=== PATIENT | female | born 1970 | race Caucasian/White ===

== ENCOUNTER → 2016-10-07 | Outpatient (CLI) | payer OTHER ==
--- NOTE | 2016-10-07 16:23 | PN ---
DATE OF SERVICE: 10/07/2016 This patient is a 46-year-old lady who has been followed in the sleep center. She is here to discuss results of her diagnostic sleep study and multiple sleep latency test. Patient had episodes of ( ) while sitting in front of the computer several times during the day. We discussed results of sleep studies with the patient and her in detail. Diagnostic sleep study showed total apnea-hypopnea index 1.1 with lowest oxygen level 91.6%. No significant periodic limb movements have been documented. Sleep efficiency, although, was decreased to 66.1%, and the patient slept in total for 4 hours 37 minutes that night. Multiple sleep latency test on the following day showed mean sleep latency of 13.2 minutes without any sleep onset REM periods. MEDICATIONS: 1. Neurontin. 2. Dilantin. 3. Ativan. 4. Zofran. 5. Topamax. 6. Zantac. 7. Albuterol. 8. Vimpat. During physical exam, patient in no distress. VITAL SIGNS: BP 138/86, HR 84, RR 16, temperature 98.2. Oxygen saturation at room air 99%. Weight 188 pounds. Height 5 feet 7 inches. BMI 29.4. HEENT: PERRLA, EOMI. LUNGS: Clear. HEART: S1, S2 regular. ABDOMEN: Slightly obese, soft, nontender. EXTREMITIES: No edema. IMPRESSION: 1. No significant respiratory abnormalities have been documented during the sleep study. Normal apnea-hypopnea index, but a total of 5 obstructive apneas was documented. 2. No significant periodic limb movements. 3. Normal sleep latency during MSLT. No sleep onset REM periods, which is against narcolepsy and hypersomnia. 4. History of seizure disorder. 5. Migraines. 6. Degenerative disc disease of the back. 7. Hypertension. 8. Asthma. 9. Mitral valve prolapse. 10. Status post appendectomy. 11. Status post cholecystectomy. 12. Status post hysterectomy. 13. Status post kidney stone removal. 14. Status post foot surgery. PLAN: 1. Sleep hygiene with regular time in bed for at least 8 hours. 2. Preferable position during sleep on the side; not flat in bed. 3. Losing weight. 4. Patient does not drive. 5. 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 Thank you very much for allowing me to participate in the management of your patient.
== END | disposition home or self-care (01) ==
LOC: SLEEP 10:29
PROVIDERS: ATTEND Internal Medicine
DX: G47.33 Obstructive sleep apnea (adult) (pediatric) (principal); G40.909 Epilepsy, unspecified, not intractable, without status epilepticus; G43.909 Migraine, unspecified, not intractable, without status migrainosus; M51.34 Other intervertebral disc degeneration, thoracic region; I10 Essential (primary) hypertension; J45.909 Unspecified asthma, uncomplicated; I34.1 Nonrheumatic mitral (valve) prolapse; E66.9 Obesity, unspecified; Z68.29 Body mass index [BMI] 29.0-29.9, adult; Z79.899 Other long term (current) drug therapy

== ENCOUNTER 2016-12-13 11:38 | Inpatient (IN) | payer OTHER ==
[2016-12-08 17:16] VITALS: BMI 29.6
--- NOTE | 2016-12-13 07:31 | P.GSHP ---
History of Present Illness H&P Date: 12/13/16 CHIEF COMPLAINT: History of intra-abdominal adhesions. HISTORY OF PRESENT ILLNESS: The patient is a 46-year-old female who presents with history of lower bilateral quadrant abdominal pain. She underwent diagnostic studies including previous diagnostic laparoscopy demonstrating severe pelvic adhesions. Abdominal pain is now worse and where she has intermittent small bowel obstruction. Surgical intervention with open exploratory laparotomy with lysis of adhesions and possible bowel resection was described to her symptoms progressed. Now she presents for definitive surgical intervention. PAST MEDICAL HISTORY: Please see list PAST SURGICAL HISTORY: Please see list MEDICATIONS: Please see list ALLERGIES: Denies. SOCIAL HISTORY: No illicit drug use or recent tobacco use FAMILY HISTORY: No gallbladder disease REVIEW OF ORGAN SYSTEMS: CONSTITUTIONAL: No reports of fevers or chills. PHYSICAL EXAM: VITAL SIGNS: Afebrile vital signs stable GENERAL: Well-developed pleasant in no acute distress. HEENT: No scleral icterus. Extraocular movements grossly intact. Moist buccal mucosa. NECK: Supple without lymphadenopathy. CHEST: Unlabored respirations. Equal bilateral excursions. CARDIOVASCULAR: Regular rate regular rhythm rhythm. Distal 2+ pulses. ABDOMEN: Soft, nondistended. Tender along the bilateral lower abdomen. MUSCULOSKELETAL: No clubbing, cyanosis, or edema. NEURO: Moves all extremities 4+/5. PSYCH: Alert and oriented to person, place and time. ASSESSMENT: 1. Bilateral lower abdominal pain. 2. History of intra-abdominal adhesions. PLAN: 1. Open exploratory laparotomy with lysis of adhesions and possible bowel resection were described in detail. 2. Heparin for DVT prophylaxis 5000 units. 3. Antibiotic prophylaxis. 4. Inpatient hospitalization advised and anticipated for at least 2 nights. Past Medical History Past Medical History: Asthma, GERD/Reflux, Hypertension, Mitral Valve Prolapse ( MVP), Osteoarthritis (OA), Seizure Disorder, Syncope Additional Past Medical History / Comment(s): migraines and chronic nausea, DDD , 3 herniated disc, no longer needs BP med, last seizure 2015. STATES HAS AURA[facility] S DAILY, HAS MEDIPORT. VERY HARD IV START History of Any Multi-Drug Resistant Organisms: None Reported Past Surgical History: Appendectomy, Cholecystectomy, Hysterectomy, Orthopedic Surgery, Tubal Ligation Additional Past Surgical History / Comment(s): surg. for small bowel obstruction , right internal jugular mediport placement - November 2014, HAS HAD 3 MEDIPORTS repair fx. left foot, surg. for kidney stones LAPROSCOPYN FOR 01/2016 lysis of adhesions Past Anesthesia/Blood Transfusion Reactions: Previous Problems w/ Anesthesia, Motion Sickness, Postoperative Nausea & Vomiting (PONV) Additional Past Anesthesia/Blood Transfusion Reaction / Comment(s): pt states she has post anesthesia seizures sometimes, severe PONV Past Psychological History: Anxiety Smoking Status: Never smoker Past Alcohol Use History: None Reported Past Drug Use History: None Reported - Past Family History Mother Family Medical History: Cancer Additional Family Medical History / Comment(s): leukemia Father Family Medical History: Cancer Medications and Allergies Home Medications Medication Instructions Recorded Confirmed Type Albuterol Inhaler [Ventolin Hfa 1 - 2 puff INHALATION QID PRN 11/08/14 12/08/16 History Inhaler] LORazepam [Ativan] 1 mg PO BID 11/08/14 12/08/16 History Ondansetron [Zofran] 4 mg PO Q12HR PRN 11/08/14 12/08/16 History Ranitidine HCl [Zantac] 150 mg PO BID 11/08/14 12/08/16 History Gabapentin [Neurontin] 800 mg PO QID 04/17/15 12/08/16 History Polyethylene Glycol 3350 [Miralax] 17 gm PO DAILY PRN 04/17/15 12/08/16 History Topiramate [Topamax] 300 mg PO Q8HR 04/17/15 12/08/16 History Docusate [Colace] 100 mg PO DAILY 01/08/16 12/08/16 History Lacosamide [Vimpat] 150 mg PO BID 01/08/16 12/08/16 History Lactulose [Constulose] 10 gm PO DAILY PRN 01/08/16 12/08/16 History Cholecalciferol [Vitamin D3] 1,000 unit PO DAILY 10/08/16 12/08/16 History Phenytoin Sodium Extended 300 mg PO BID 12/08/16 12/08/16 History [Dilantin] Allergies Allergy/AdvReac Type Severity Reaction Status Date / Time hydromorphone HCl Allergy Severe Chest Pain Verified 11/05/16 10:55 [From Dilaudid] morphine Allergy Severe Rapid Verified 11/05/16 10:55 Heart Rate Penicillins Allergy Severe Rapid Verified 11/05/16 10:55 Heart Rate prochlorperazine edisylate Allergy Severe Rapid Verified 11/05/16 10:55 [From Compazine] Heart Rate prochlorperazine maleate Allergy Severe Rapid Verified 11/05/16 10:55 [From Compazine] Heart Rate
[~2016-12-13 11:38] MED LIST: ACETAMINOPHEN IV (For NPO) 1,000 MG in EMPTY BAG 1 BAG IVPB ONE; DEXAMETHASONE SOD PHOSPHATE 10 MG/ML 1 ML VIAL IV ONE; HEPARIN SODIUM,PORCINE 5,000 UNIT/ML 1 ML VIAL SQ ONE; MIDAZOLAM 2 MG/2 ML VIAL IV PRN; SCOPOLAMINE 1.5MG/72HR PATCH TRANSDERM ONE; ceFAZolin 2 GM in SODIUM CHLORIDE 0.9% 100 ML IVPB ONE; fentaNYL (PF) 50 MCG/ML 2 ML AMP IV PRN
[2016-12-13] MEDS: LACTATED RINGERS 1,000 ML IV SCH (13:51)
[2016-12-13] MEDS ORDERED: LIDOCAINE 1% 20 ML VIAL (10MG/ML) FOR IV START INTRADERMA ONE (13:52)
[2016-12-13] MEDS: ONDANSETRON 4 MG/2 ML VIAL IVP ONE ×2 (13:53→18:00)
[2016-12-13] MEDS ORDERED: ROCURONIUM BROMIDE 10 MG/ML 10 ML VIAL IV ONE (14:58)
[2016-12-13] MEDS ORDERED: fentaNYL (PF) 50 MCG/ML 2 ML AMP ONE (14:58)
[2016-12-13] MEDS ORDERED: NEOSTIGMINE 1 MG/ML 10 ML VIAL ONE (14:58)
[2016-12-13] MEDS ORDERED: SUCCINYLCHOLINE CHLORIDE 100 MG/5 ML SYR IV ONE (14:58)
[2016-12-13] MEDS ORDERED: PROPOFOL 10 MG/ML 20 ML VIAL IV ONE (14:58)
[2016-12-13] MEDS ORDERED: VECURONIUM 10 MG VIAL IV ONE (14:58)
[2016-12-13] MEDS ORDERED: MIDAZOLAM 2 MG/2 ML VIAL ONE (14:58)
[2016-12-13] MEDS ORDERED: GLYCOPYRROLATE 0.2 MG/ML 2 ML VIAL ONE (14:58)
[2016-12-13] MEDS ORDERED: ALBUMIN HUMAN 5% 500 ML VIAL IVPB ONE (14:58)
[2016-12-13] MEDS ORDERED: BUPIVACAIN-EPI 0.25%-1:200,000 30 ML VIAL SQ ONE ×2 (15:28→15:38)
[2016-12-13] MEDS ORDERED: ALBUMIN HUMAN 5% 500 ML in EMPTY BAG 1 BAG IVPB ONE (15:35)
[2016-12-13] MEDS ORDERED: LACTATED RINGERS 1,000 ML IV ONE (16:44)
--- NOTE | 2016-12-13 17:08 | P.PCN ---
Date of Procedure: 12/13/16 Preoperative Diagnosis: History of bowel obstructions, history of intra-abdominal adhesions, generalized abdominal pain, intractable nausea and vomiting, history of chronic constipation Postoperative Diagnosis: Same, internal hernia involving proximal jejunum Procedure(s) Performed: Exploratory laparotomy with lysis of adhesions over 1 hour was severe adhesive band disease in the pelvis of ileum to sigmoid colon and pelvis, takedown of internal hernia involving proximal jejunum, placement of XIX drain pelvis, abdominal washout 2 L Anesthesia: GETA, local (60 mL cords Marcaine with epinephrine) Surgeon: Alberta Durán Estimated Blood Loss (ml): 50 Pathology: none sent Condition: stable Disposition: floor Operative Findings: Adhesions involving the pelvis of terminal ileum and proximal ileum to the deep pelvis and sigmoid colon, internal hernia involving proximal jejunum
[2016-12-13] MEDS ORDERED: NALOXONE 0.4 MG/ML 1 ML VIAL IV PRN (17:09)
[2016-12-13] MEDS: METOCLOPRAMIDE 5 MG/ML 2 ML VIAL IVP SCH (18:08)
[2016-12-13] MEDS: KETOROLAC 30 MG/ML 1 ML VIAL IVP SCH (18:08)
[2016-12-13] MEDS: DEXAMETHASONE SOD PHOSPHATE 10 MG/ML 1 ML VIAL IV STA ×2 (18:13→19:22)
[2016-12-13] MEDS ORDERED: ONDANSETRON 4 MG/2 ML VIAL IVP PRN (18:13)
[2016-12-13] MEDS ORDERED: SODIUM CHLORIDE 0.9% 2,000 ML IV ONE (18:19)
--- NOTE | 2016-12-13 18:19 | P.PN ---
Progress Note - Text Patient seen and evaluated. She complains of moderate nausea. Intraoperative findings including severe adhesions along the pelvis as well as internal hernia was discussed with the patient's . Nasogastric tube placed for precaution of nausea. Recommend IV fluid bolus. Inpatient hospitalization anticipated for at least 2-3 days pending bowel function.
[2016-12-13] MEDS ORDERED: ACETAMINOPHEN IV (For NPO) 1,000 MG in EMPTY BAG 1 BAG IVPB ONE (19:00)
[2016-12-13] MEDS: GABAPENTIN 400 MG CAP PO SCH ×2 (19:22→21:12)
[2016-12-13] MEDS: ceFAZolin 2 GM in SODIUM CHLORIDE 0.9% 100 ML IVPB SCH (21:11)
[2016-12-13] MEDS: PHENYTOIN SODIUM EXTENDED 100 MG CAP PO SCH (21:12)
[2016-12-13] MEDS: LACOSAMIDE 50 MG TABLET PO SCH (21:51)
[2016-12-14] MEDS: KETOROLAC 30 MG/ML 1 ML VIAL IVP SCH ×4 (00:03→16:58)
[2016-12-14] MEDS: METOCLOPRAMIDE 5 MG/ML 2 ML VIAL IVP SCH ×4 (00:03→16:58)
[2016-12-14] MEDS: TOPIRAMATE 100 MG TAB PO SCH ×3 (00:04→15:04)
[2016-12-14] MEDS: ceFAZolin 2 GM in SODIUM CHLORIDE 0.9% 100 ML IVPB SCH (05:31)
[2016-12-14 08:08] LABS: Basophils % (A) 0 %; CH 31.3; CHCM 33.3; Eosinophils % (A) 0 %; HCT 43.5 % (34.0-46.0); HDW 2.51; Luc # (Auto) 0.12; Luc % (Auto) 1; Lymphocytes # (A) 1.3 k/uL (1.0-4.8); Lymphocytes % (A) 15 %; MCH 30.4 pg (25.0-35.0); MCHC 32.2 g/dL (31.0-37.0); MCV 94.4 fL (80.0-100.0); Monocytes # (A) 0.6 k/uL (0-1.0); Monocytes % (A) 8 %; Neutrophils # (A) 6.3 k/uL (1.3-7.7); Neutrophils % (A) 75 %; RBC 4.61 m/uL (3.80-5.40); RDW 13.4 % (11.5-15.5); WBC 8.4 k/uL (3.8-10.6); WBC (Perox) 8.56
[2016-12-14] MEDS: PANTOPRAZOLE 40 MG/10 ML VIAL IV SCH (08:20)
[2016-12-14] MEDS: GABAPENTIN 400 MG CAP PO SCH ×4 (08:20→22:20)
[2016-12-14] MEDS: ENOXAPARIN 40 MG/0.4 ML SYRINGE SQ SCH (08:20)
[2016-12-14 08:21] LABS: ALT 278 U/L (9-52); AST 341 U/L (14-36); Alkaline Phosphatase 65 U/L (38-126); Anion Gap 12 mmol/L; Blood Urea Nitrogen 11 mg/dL (7-17); Calcium 9.4 mg/dL (8.4-10.2); Carbon Dioxide 17 mmol/L (22-30); Chloride 112 mmol/L (98-107); Glucose 97 mg/dL (74-99); Non-African American GFR(MDRD) >60 (>60 ml/min/1.73 sqM); Phosphorous 2.8 mg/dL (2.5-4.5); Potassium 3.7 mmol/L (3.5-5.1); Sodium 141 mmol/L (137-145); Total Bilirubin 0.6 mg/dL (0.2-1.3); Total Protein 7.2 g/dL (6.3-8.2)
[2016-12-14] MEDS: PHENYTOIN SODIUM EXTENDED 100 MG CAP PO SCH ×2 (08:21→22:20)
[2016-12-14] MEDS: LACOSAMIDE 50 MG TABLET PO SCH ×2 (08:27→22:20)
[2016-12-14] MEDS: LACTATED RINGERS 1,000 ML IV SCH (14:10)
--- NOTE | 2016-12-14 15:06 | P.PN ---
Subjective 46 year old female being seen this morning on rounds. Nasogastric tube in place. Patient states has not had a bowel movement has not passed any flatus. Patient states pain medication has been effective for pain control. Patient has not been out of bed yet this morning Patient is postop exploratory laparotomy with lysis of adhesions of 1 hour with severe adhesive band disease the pelvis of ileum to sigmoid colon and pelvis, takedown of internal hernia involving proximal jejunum, placement of drain pelvis, abdominal washout two Liter Objective - Vital Signs Vital signs: Vital Signs Temp 97 F L 12/14/16 07:00 Pulse 92 12/14/16 08:00 Resp 18 12/14/16 08:00 BP 124/65 12/14/16 07:00 Pulse Ox 98 12/14/16 07:00 Intake & Output 12/13/16 12/14/16 12/14/16 18:59 06:59 18:59 Intake Total 2200 500 Output Total 280 60 Balance 1920 -60 500 Weight 88.451 kg Intake: IV 2200 500 Lactated Ringers 1,000 ml 500 @ 20 mls/hr IV .Q24H [facility] Rx#:[id number] Output: Drainage 60 Abdomen 60 Urine 200 Estimated Blood Loss 80 Other: Voiding Method Toilet Toilet # Voids 6 1 - Exam Physical exam 46-year-old female sitting up in bed oriented 3 appears in no acute distress Lungs essentially clear adequate air movement Heart S1-S2 audible regular Abdomen soft surgical dressing dry nasal gastric tube in place Eber-Arita drain in place few hypoactive bowel tones surgical tenderness nondistended Extremities no edema noted - Labs CBC & Chem 7: 12/14/16 07:18 12/14/16 07:18 Labs: Abnormal Lab Results - Last 24 Hours (Table) 12/14/16 Range/Units 07:18 Chloride 112 H (98-107) mmol/L Carbon Dioxide 17 L (22-30) mmol/L AST 341 H (14-36) U/L ALT 278 H (9-52) U/L Assessment and Plan Plan: Impression Present on admission bilateral lower abdominal pain likely due to lysis of adhesions intra-abdominal Status post 13 of December exploratory laparotomy with severe lysis of adhesions adhesions Anxiety disorder nonspecified History of a seizure disorder on Dilantin and Topamax Plan Continue postop surgical care Use of incentive spirometer use of a 1 hour while awake Pain control DVT and GI prophylaxis IV fluid for hydration Nasogastric tube to suction Resume home meds as appropriate The above dictated assessment and findings were discussed with Ms. Luis Armando Cox and the plan of care have been dictated as directed. Zenobia Zapata nurse practitioner acting as a scribe for Dr. Durán
--- NOTE | 2016-12-14 20:21 | P.PN ---
Progress Note - Text NGT removed. She is passing flatus. Start soft diet. Discharge home for the morning.
[2016-12-14 23:30] VITALS: RESP 16
[2016-12-15] MEDS: TOPIRAMATE 100 MG TAB PO SCH ×3 (00:27→14:26)
[2016-12-15] MEDS: KETOROLAC 30 MG/ML 1 ML VIAL IVP SCH ×3 (00:27→13:09)
[2016-12-15] MEDS: METOCLOPRAMIDE 5 MG/ML 2 ML VIAL IVP SCH ×3 (00:27→13:09)
[2016-12-15] MEDS: ENOXAPARIN 40 MG/0.4 ML SYRINGE SQ SCH (07:46)
[2016-12-15] MEDS: PANTOPRAZOLE 40 MG/10 ML VIAL IV SCH (07:47)
[2016-12-15] MEDS: PHENYTOIN SODIUM EXTENDED 100 MG CAP PO SCH (07:47)
[2016-12-15] MEDS: GABAPENTIN 400 MG CAP PO SCH ×2 (07:47→14:25)
[2016-12-15] MEDS: LACOSAMIDE 50 MG TABLET PO SCH (07:52)
[2016-12-15] MEDS: LACTATED RINGERS 1,000 ML IV SCH (08:39)
[2016-12-15 08:52] LABS: ALT 135 U/L (9-52); AST 92 U/L (14-36); Alkaline Phosphatase 66 U/L (38-126); Anion Gap 10 mmol/L; Blood Urea Nitrogen 11 mg/dL (7-17); Calcium 9.2 mg/dL (8.4-10.2); Carbon Dioxide 21 mmol/L (22-30); Chloride 110 mmol/L (98-107); Glucose 106 mg/dL (74-99); Non-African American GFR(MDRD) >60 (>60 ml/min/1.73 sqM); Potassium 3.5 mmol/L (3.5-5.1); Sodium 141 mmol/L (137-145); Total Bilirubin 0.7 mg/dL (0.2-1.3); Total Protein 6.7 g/dL (6.3-8.2)
--- NOTE | 2016-12-15 09:34 | P.OP ---
Date of Procedure: 12/13/16 Description of Procedure: SURGEON: SHERIN ANGEL MD LASER BEAM TRIM OPERATOR: NONE. PREOPERATIVE DIAGNOSIS: 1. History of chronic abdominal pain. 2. Previous history of multiple small bowel obstructions with intestinal adhesions. 3. Seizure disorder. 4. Asthma. 5. Gastroesophageal reflux disease. 6. Mitral valve prolapse. 7. Osteoarthritis. 8. Migraines, chronic. 9. Chronic nausea and vomiting. 10. Poor peripheral venous access. 11. Chronic constipation. POSTOPERATIVE DIAGNOSIS: 1. History of chronic abdominal pain. 2. Previous history of multiple small bowel obstructions with intestinal adhesions. 3. Seizure disorder. 4. Asthma. 5. Gastroesophageal reflux disease. 6. Mitral valve prolapse. 7. Osteoarthritis. 8. Migraines, chronic. 9. Chronic nausea and vomiting. 10. Poor peripheral venous access. 11. Internal hernia involving proximal jejunum. PROCEDURES PERFORMED: 1. Exploratory laparotomy with lysis of adhesions over 1 hour was severe adhesive band disease in the pelvis of ileum to sigmoid colon and pelvis 2. Takedown of internal hernia involving proximal jejunum 3. Placement of round #19 STEVEN drain along pelvis 4. Abdominal washout 2 L ANESTHESIA: GETA, local (60 mL 0.25% Marcaine with epinephrine) ESTIMATED BLOOD LOSS: 50 mL. SPECIMENS REMOVED: None. COMPLICATIONS: None. INDICATIONS: The patient is a 46-year-old female who presented with chronic diffuse and progressive abdominal pain. She has history of multiple intra- abdominal adhesions as well as bowel obstruction. Surgical intervention was discussed including but not limited to bleeding, infection, need for further surgery, small bowel resection, cosmetic deformity, and pain for which informed consent was obtained. DESCRIPTION: The patient was brought to the operating room. After general induction, the abdomen was prepped and draped in a standard sterile fashion using ChloraPrep . A time-out protocol was confirmed with surgical team regarding the patient's name including procedure to be performed. Preoperative antibiotics were administered. Bilateral SCDs were placed. A Smith catheter was placed. A midline abdominal incision was placed from the epigastrium down to the pubis. The abdomen was entered using electro-Bovie cautery. Careful entry into the abdomen was performed using blunt dissection including sharp dissection using the Metzenbaum scissors. No full-thickness enterotomies had occurred during this entire portion of entry into the abdomen. Along the lower abdomen, the small bowel was adherent including along the right lower abdomen. Sharp lysis with a Metzenbaum scissors was performed. An internal hernia of the distal small bowel was confirmed. At least 4 separate areas involving near obstructing adhesive band disease was identified of the lower pelvis from her previous hysterectomy. Retrograde inspection of the small bowel was performed to the ligament of Treitz. All adhesive bands were addressed using a Metzenbaum scissor including electro-Bovie cautery. Extensive lysis of adhesions were performed over 1 hour. Proximal small bowel dilatation was relieved as the focal transition point found along the mid to distal ileum was divided. The terminal ileum and mesentery were unremarkable. The cecum was unremarkable. No inflammatory changes were identified. No enterotomies occurred. After adhesiolysis, the bowel was ran at least another 2 more times proximally and distally to confirm all lysis of adhesions. Finally, a nasogastric tube was confirmed within the stomach and functioning well. The abdominal cavity was copiously irrigated with approximately a liter of warm normal saline solution. A round of 19 Eber-Arita drain was placed along the abdominal cavity given moderate irrigation fluid. A 2-0 nylon was placed for the STEVEN drain. Bulb suction was applied. Optifoam antibiotic dressing was placed over the STEVEN site. The abdomen was closed using double-stranded 0 PDS. Around the umbilicus was reapproximated using 3-0 Vicryl. The rest of the incisions were reapproximated using 3-0 Vicryl. Antibiotic Optifoam dressing was placed. An abdominal binder was placed. The sponge instrument count and needle counts were verified correct by surgical pathologist. The patient was awoken from anesthesia in stable condition. The patient's family was pleased with the level of care. FINDINGS: 1. Adhesions involving the terminal and proximal ileum to the deep pelvis and sigmoid colon. 2. Internal hernia involving proximal jejunum
[2016-12-15] MEDS ORDERED: traMADol 50 MG TAB PO PRN (10:54)
--- NOTE | 2016-12-15 14:56 | P.DS ---
Providers Date of admission: 12/13/16 11:38 Expected date of discharge: 12/15/16 Attending physician: Alberta Garrett Primary care physician: Dc Aceves Hospital Course: 46-year-old female who has been experiencing bilateral lower quadrant abdominal pain. The abdominal pain had become more progressive with intermittent small bowel obstruction. Surgical intervention was discussed with the patient patient presented for definitive surgical intervention Patient is postop done on 12/14/2016 exploratory laparotomy with lysis of adhesions of 1 hour with severe adhesive band disease the pelvis of ileum to sigmoid colon and pelvis, takedown of internal hernia involving proximal jejunum , placement of drain pelvis, abdominal washout two Liter There were no postop events and on the 15 of December was felt to be medically stable and appropriate to proceed with a discharge to home Impression Present on admission bilateral lower abdominal pain likely due to lysis of adhesions intra-abdominal Status post 13 of December exploratory laparotomy with severe lysis of adhesions adhesions for persistent bilateral lower quadrant pain Anxiety disorder nonspecified History of a seizure disorder on Dilantin and Topamax The above dictated assessment and findings were discussed with dr Luis Armando Cox and the plan of care have been dictated as directed. Zenobia Zapata nurse practitioner acting as a scribe for dr garrett Plan - Discharge Summary New Discharge Prescriptions: Ibuprofen [Motrin] 600 mg PO Q8HR PRN #30 tab PRN Reason: Pain Omeprazole 40 mg PO DAILY #30 capsule.dr Blunt Medication List Albuterol Inhaler [Ventolin Hfa Inhaler] 1 - 2 puff INHALATION RT-QID PRN [History] LORazepam [Ativan] 1 mg PO BID 11/08/14 [History] Ondansetron [Zofran] 4 mg PO Q12HR PRN 11/08/14 [History] Ranitidine HCl [Zantac] 150 mg PO BID 11/08/14 [History] Gabapentin [Neurontin] 800 mg PO QID 04/17/15 [History] Polyethylene Glycol 3350 [Miralax] 17 gm PO DAILY PRN 04/17/15 [History] Topiramate [Topamax] 300 mg PO Q8HR 04/17/15 [History] Docusate [Colace] 100 mg PO DAILY 01/08/16 [History] Lacosamide [Vimpat] 150 mg PO BID 01/08/16 [History] Lactulose [Constulose] 10 gm PO DAILY PRN 01/08/16 [History] Cholecalciferol [Vitamin D3] 1,000 unit PO DAILY 10/08/16 [History] Phenytoin Sodium Extended [Dilantin] 300 mg PO BID 12/08/16 [History] Ibuprofen [Motrin] 600 mg PO Q8HR PRN #30 tab 12/13/16 [Rx] Omeprazole 40 mg PO DAILY #30 capsule. 12/13/16 [Rx] Follow up Appointment(s)/Referral(s): lAberta Garrett MD [STAFF PHYSICIAN] - 12/21/16 2:00 pm (Please confirm time. ) Patient Instructions/Handouts: Eber-Arita Drain Care (GEN), Exploratory Laparotomy (DC), Abdominal Binder (GEN) Activity/Diet/Wound Care/Special Instructions: No lifting over 4 pounds in 4 weeks. Please wear abdominal binder on all times. Discharge Disposition: HOME SELF-CARE
[2016-12-15 15:14] VITALS: BP 117/65; PULSE 96; TEMP 97.4
== END 2016-12-15 16:44 | disposition home or self-care (01) | DRG 336 ==
LOC: 2ORWHC 11:38 → 3SUR 17:45
PROVIDERS: ADMIT Surgery Plastic and Reconstructive Surgery; ATTEND Surgery Plastic and Reconstructive Surgery
PROC: 0DNN0ZZ Release Sigmoid Colon, Open Approach (ICD-10-PCS; principal; 2016-12-13 13:50)
PROC: 0DNB0ZZ Release Ileum, Open Approach (ICD-10-PCS; principal; 2016-12-13 13:50)
PROC: 0DNA0ZZ Release Jejunum, Open Approach (ICD-10-PCS; principal; 2016-12-13 13:50)
DX: K66.0 Peritoneal adhesions (postprocedural) (postinfection) (principal); K56.60 Unspecified intestinal obstruction; I10 Essential (primary) hypertension; F41.9 Anxiety disorder, unspecified; G40.909 Epilepsy, unspecified, not intractable, without status epilepticus; I34.1 Nonrheumatic mitral (valve) prolapse; J45.909 Unspecified asthma, uncomplicated; K21.9 Gastro-esophageal reflux disease without esophagitis; K46.9 Unspecified abdominal hernia without obstruction or gangrene; Z79.899 Other long term (current) drug therapy; Z87.442 Personal history of urinary calculi
CPT/HCPCS: 80053; 82040; 83735; 84100; 85025

== ENCOUNTER 2016-12-19 04:52 | Inpatient (IN) | payer OTHER ==
[2016-12-19] MEDS ORDERED: ONDANSETRON 4 MG/2 ML VIAL IVP STA (06:26)
[2016-12-19 06:32] LABS: Appearance,Urine Cloudy (Clear); Bilirubin,Urine Negative (Negative); Glucose,Urine (UA) Negative (Negative); Ketones,Urine Negative (Negative); Leukocyte Esterase,Urine Moderate (Negative); Mucus,Urine Many /hpf; Nitrite,Urine Negative (Negative); Particle Count 20628; Protein,Urine 1+ (Negative); RBC,Urine 7 /hpf (0-5); Specific Gravity,Urine 1.025 (1.001-1.035); Squamous Epithelial Cell,Urine 5 /hpf (0-4); UA Billing (MACRO vs. MICRO) MICRO; WBC,Urine 10 /hpf (0-5)
[2016-12-19 06:34] LABS: Basophils % (A) 0 %; CH 31.3; CHCM 34.4; Eosinophils # (A) 0.2 k/uL (0-0.7); Eosinophils % (A) 2 %; HCT 45.7 % (34.0-46.0); HDW 2.67; HGB 15.9 gm/dL (11.4-16.0); Luc % (Auto) 1; Lymphocytes % (A) 11 %; MCH 31.6 pg (25.0-35.0); MCHC 34.7 g/dL (31.0-37.0); MCV 91.2 fL (80.0-100.0); Mean Platelet Volume 6.6; Monocytes # (A) 0.6 k/uL (0-1.0); Monocytes % (A) 6 %; Neutrophils # (A) 7.7 k/uL (1.3-7.7); Neutrophils % (A) 80 %; RBC 5.02 m/uL (3.80-5.40); RDW 13.2 % (11.5-15.5); WBC 9.7 k/uL (3.8-10.6); WBC (Perox) 9.16
[2016-12-19 06:46] LABS: ALT 59 U/L (9-52); AST 22 U/L (14-36); Alkaline Phosphatase 88 U/L (38-126); Amylase 61 U/L (30-110); Anion Gap 14 mmol/L; Blood Urea Nitrogen 16 mg/dL (7-17); Calcium 10.2 mg/dL (8.4-10.2); Carbon Dioxide 21 mmol/L (22-30); Chloride 105 mmol/L (98-107); Glucose 142 mg/dL (74-99); Non-African American GFR(MDRD) 60 (>60 ml/min/1.73 sqM); Potassium 3.4 mmol/L (3.5-5.1); Sodium 140 mmol/L (137-145); Total Bilirubin 0.5 mg/dL (0.2-1.3); Total Protein 7.7 g/dL (6.3-8.2)
[2016-12-19] MEDS ORDERED: SODIUM CHLORIDE 0.9% 1,000 ML IV ONE (07:20)
--- NOTE | 2016-12-19 07:25 | CT ---
EXAM: CT Abdomen and Pelvis Without Intravenous Contrast. CLINICAL HISTORY: Abdominal pain. History of appendectomy, cholecystectomy, hysterectomy, tubal ligation, and small bowel surgery. Operative day 3 status post laparotomy TECHNIQUE: Axial computed tomography images of the abdomen and pelvis without intravenous contrast. CTDI is 15.10 mGy and DLP is 774.30 mGy-cm This CT exam was performed using one or more of the following dose reduction techniques: automated exposure control, adjustment of the mA and/or kV according to patient size, and/or use of iterative reconstruction technique. COMPARISON: 02/05/2016 FINDINGS: Lower thorax: No acute findings. ABDOMEN: Liver: Unremarkable. Gallbladder and bile ducts: The gallbladder is absent. Pancreas: Unremarkable. Spleen: Unremarkable. Adrenals: Unremarkable. Kidneys and ureters: No nephrolithiasis or hydronephrosis. Stomach and bowel: Mildly dilated, thickened fecalized loops of small bowel in the left abdomen are nonspecific and can be seen in the setting of nonspecific enteritis or an early or partial small bowel obstruction. The distal small bowel is decompressed. Submucosal fat in the decompressed ileum is nonspecific and can be seen in the setting of inflammatory bowel disease. Appendix: The appendix is not identified. PELVIS: Bladder: Unremarkable. No stones. Reproductive: The uterus is absent. ABDOMEN and PELVIS: Intraperitoneal space: Unremarkable. No free air. No significant fluid collection. Bones/joints: No acute osseous abnormality. Soft tissues: Mild mesenteric edema. Stranding and trace gas in the ventral abdominal wall is likely postsurgical. Vasculature: Unremarkable. No abdominal aortic aneurysm. Lymph nodes: Unremarkable. No enlarged lymph nodes. Tubes, lines and devices: A right lower quadrant percutaneous drain terminates in the left pelvis. IMPRESSION: Mildly dilated, thickened fecalized loops of small bowel in the left abdomen are nonspecific and can be seen in the setting of nonspecific enteritis or an early or partial small bowel obstruction. No free air.
[2016-12-19] MEDS ORDERED: ONDANSETRON 4 MG/2 ML VIAL IVP PRN ×2 (07:34→18:21)
[2016-12-19] MEDS ORDERED: NALOXONE 0.4 MG/ML 1 ML VIAL IV PRN (07:34)
--- NOTE | 2016-12-19 07:34 | ED ---
Abdominal Pain HPI - General Chief Complaint: Recheck/Abnormal Lab/Rx Stated Complaint: Post surgical complication/Abdominal Pain Time Seen by Provider: 12/19/16 06:11 Source: patient Mode of arrival: ambulatory Limitations: no limitations - History of Present Illness Initial Comments: This patient is a 46-year-old woman who presents with complaint that she is having worsening abdominal pain and also nausea, vomiting, and diarrhea. She had been admitted in the hospital and had a laparotomy for lysis of adhesions as well as takedown of an internal hernia performed by Dr. Gr on December 13. The patient had gone home, and then over the past couple of days started feeling worse. Over the course the past night she's had worsening left-sided lower abdominal pain, also nausea, vomiting, and diarrhea. She states that the vomiting seems to be bile. She has not noted any blood with the emesis or bowel movements. MD Complaint: abdominal pain -: hour(s) Location: periumbilical, LLQ Radiation: none Migration to: no migration Severity: moderate Quality: cramping, aching Consistency: constant Improves With: nothing Worsens With: other (Palpation) Associated Symptoms: nausea, vomiting, diarrhea - Related Data Home Medications Medication Instructions Recorded Confirmed Albuterol Inhaler [Ventolin Hfa 1 - 2 puff INHALATION RT-QID PRN 11/08/14 Inhaler] LORazepam [Ativan] 1 mg PO BID 11/08/14 12/19/16 Ondansetron [Zofran] 4 mg PO Q12HR PRN 11/08/14 12/19/16 Ranitidine HCl [Zantac] 150 mg PO BID 11/08/14 12/19/16 Gabapentin [Neurontin] 800 mg PO QID 04/17/15 12/19/16 Polyethylene Glycol 3350 [Miralax] 17 gm PO DAILY PRN 04/17/15 12/19/16 Topiramate [Topamax] 300 mg PO Q8HR 04/17/15 12/19/16 Docusate [Colace] 100 mg PO DAILY 01/08/16 12/19/16 Lacosamide [Vimpat] 150 mg PO BID 01/08/16 12/19/16 Lactulose [Constulose] 10 gm PO DAILY PRN 01/08/16 12/19/16 Cholecalciferol [Vitamin D3] 1,000 unit PO DAILY 10/08/16 12/19/16 Phenytoin Sodium Extended 300 mg PO BID 12/08/16 12/19/16 [Dilantin] Previous Rx's Medication Instructions Recorded Ibuprofen [Motrin] 600 mg PO Q8HR PRN #30 tab 12/13/16 Omeprazole 40 mg PO DAILY #30 capsule. 12/13/16 Allergies Allergy/AdvReac Type Severity Reaction Status Date / Time hydromorphone HCl Allergy Severe Chest Pain Verified 12/19/16 07:59 [From Dilaudid] morphine Allergy Severe Rapid Verified 12/19/16 07:59 Heart Rate Penicillins Allergy Severe Rapid Verified 12/19/16 07:59 Heart Rate prochlorperazine edisylate Allergy Severe Rapid Verified 12/19/16 07:59 [From Compazine] Heart Rate prochlorperazine maleate Allergy Severe Rapid Verified 12/19/16 07:59 [From Compazine] Heart Rate Review of Systems ROS Statement: Those systems with pertinent positive or pertinent negative responses have been documented in the HPI. ROS Other: All systems not noted in ROS Statement are negative. Constitutional: Reports: chills, weakness. Denies: fever Respiratory: Reports: cough. Denies: dyspnea, wheezes Cardiovascular: Denies: chest pain, palpitations, edema, syncope Gastrointestinal: Reports: abdominal pain, nausea, vomiting, diarrhea. Denies: hematemesis, melena, hematochezia Genitourinary: Denies: dysuria Musculoskeletal: Denies: back pain Skin: Denies: rash Neurological: Reports: weakness (Generalized). Denies: headache, numbness, paresthesias Past Medical History Past Medical History: Asthma, GERD/Reflux, Hypertension, Mitral Valve Prolapse ( MVP), Osteoarthritis (OA), Seizure Disorder, Syncope Additional Past Medical History / Comment(s): migraines and chronic nausea, DDD , 3 herniated disc, no longer needs BP med, last seizure 2015. STATES HAS AURA' S DAILY, HAS MEDIPORT. VERY HARD IV START History of Any Multi-Drug Resistant Organisms: None Reported Past Surgical History: Appendectomy, Cholecystectomy, Hysterectomy, Orthopedic Surgery, Tubal Ligation Additional Past Surgical History / Comment(s): surg. for small bowel obstruction , right internal jugular mediport placement - November 2014, HAS HAD 3 MEDIPORTS repair fx. left foot, surg. for kidney stones LAPROSCOPYN FOR 01/2016 lysis of adhesions Past Anesthesia/Blood Transfusion Reactions: Previous Problems w/ Anesthesia, Motion Sickness, Postoperative Nausea & Vomiting (PONV) Additional Past Anesthesia/Blood Transfusion Reaction / Comment(s): pt states she has post anesthesia seizures sometimes, severe PONV Past Psychological History: Anxiety Smoking Status: Never smoker Past Alcohol Use History: None Reported Past Drug Use History: None Reported - Past Family History Mother Family Medical History: Cancer Additional Family Medical History / Comment(s): leukemia Father Family Medical History: Cancer General Exam Limitations: no limitations General appearance: alert, in no apparent distress Head exam: Present: atraumatic, normocephalic Eye exam: Present: normal appearance. Absent: scleral icterus, conjunctival injection ENT exam: Present: mucous membranes dry Neck exam: Present: normal inspection Respiratory exam: Present: normal lung sounds bilaterally. Absent: respiratory distress, wheezes, rales, rhonchi, stridor Cardiovascular Exam: Present: normal rhythm, tachycardia (The patient is mildly tachycardic at my exam rate 104), normal heart sounds. Absent: systolic murmur , diastolic murmur, rubs, gallop GI/Abdominal exam: Present: soft, tenderness, diminished bowel sounds, other ( The patient's surgical dressing is intact, clean and dry. The abdomen has some moderate left lower quadrant tenderness, without rebound.). Absent: distended, guarding, rebound, rigid, mass, pulsatile mass, hernia Extremities exam: Present: normal inspection, normal capillary refill. Absent: pedal edema, calf tenderness Back exam: Present: normal inspection. Absent: CVA tenderness (R), CVA tenderness (L) Neurological exam: Present: alert Skin exam: Present: warm, dry, intact, normal color. Absent: rash Course Vital Signs 12/19/16 12/19/16 05:21 08:00 Temperature 98.6 F 98.3 F Pulse Rate 115 H 102 H Respiratory 20 17 Rate Blood Pressure 144/81 152/89 O2 Sat by Pulse 98 97 Oximetry Medical Decision Making - Medical Decision Making Patient is a 46-year-old woman in for nausea and vomiting with some diarrhea, as well as some left lower quadrant pain post surgery. Given her degree of tenderness, she had computed tomography scan that shows a possible early bowel obstruction. Discussed the case with Dr. Beltran, who is covering for Dr. Gr and will admit the patient. She is starting to have some relief with IV fluids and antiemetics. The patient states she is not able to take narcotic pain medicines. - Lab Data Result diagrams: 12/19/16 06:03 12/19/16 06:03 Lab Results 12/19/16 12/19/16 12/19/16 Range/Units 06:03 06:03 06:03 WBC 9.7 (3.8-10.6) k/uL RBC 5.02 (3.80-5.40) m/uL Hgb 15.9 (11.4-16.0) gm/dL Hct 45.7 (34.0-46.0) % MCV 91.2 (80.0-100.0) fL MCH 31.6 (25.0-35.0) pg MCHC 34.7 (31.0-37.0) g/dL RDW 13.2 (11.5-15.5) % Plt Count 302 (150-450) k/uL Neutrophils % 80 % Lymphocytes % 11 % Monocytes % 6 % Eosinophils % 2 % Basophils % 0 % Neutrophils # 7.7 (1.3-7.7) k/uL Lymphocytes # 1.0 (1.0-4.8) k/uL Monocytes # 0.6 (0-1.0) k/uL Eosinophils # 0.2 (0-0.7) k/uL Basophils # 0.0 (0-0.2) k/uL Sodium 140 (137-145) mmol/L Potassium 3.4 L (3.5-5.1) mmol/L Chloride 105 (98-107) mmol/L Carbon Dioxide 21 L (22-30) mmol/L Anion Gap 14 mmol/L BUN 16 (7-17) mg/dL Creatinine 1.00 (0.52-1.04) mg/dL Est GFR (MDRD) Af Amer >60 (>60 ml/min/1.73 sqM) Est GFR (MDRD) Non-Af 60 (>60 ml/min/1.73 sqM) Glucose 142 H (74-99) mg/dL Plasma Lactic Acid Ricco (0.7-2.0) mmol/L Calcium 10.2 (8.4-10.2) mg/dL Total Bilirubin 0.5 (0.2-1.3) mg/dL AST 22 (14-36) U/L ALT 59 H (9-52) U/L Alkaline Phosphatase 88 (38-126) U/L Total Protein 7.7 (6.3-8.2) g/dL Albumin 4.3 (3.5-5.0) g/dL Amylase 61 (30-110) U/L Lipase 228 (23-300) U/L Urine Color Urine Appearance (Clear) Urine pH (5.0-8.0) Ur Specific [place] (1.001-1.035) Urine Protein (Negative) Urine Glucose (UA) (Negative) Urine Ketones (Negative) Urine Blood (Negative) Urine Nitrite (Negative) Urine Bilirubin (Negative) Urine Urobilinogen (<2.0) mg/dL Ur Leukocyte Esterase (Negative) Urine RBC (0-5) /hpf Urine WBC (0-5) /hpf Ur Squamous Epith Cells (0-4) /hpf Hyaline Casts (0-2) /lpf Urine Mucus (None) /hpf Urine HCG, Qual Not Detected (Not Detectd) 12/19/16 12/19/16 Range/Units 06:03 06:03 WBC (3.8-10.6) k/uL RBC (3.80-5.40) m/uL Hgb (11.4-16.0) gm/dL Hct (34.0-46.0) % MCV (80.0-100.0) fL MCH (25.0-35.0) pg MCHC (31.0-37.0) g/dL RDW (11.5-15.5) % Plt Count (150-450) k/uL Neutrophils % % Lymphocytes % % Monocytes % % Eosinophils % % Basophils % % Neutrophils # (1.3-7.7) k/uL Lymphocytes # (1.0-4.8) k/uL Monocytes # (0-1.0) k/uL Eosinophils # (0-0.7) k/uL Basophils # (0-0.2) k/uL Sodium (137-145) mmol/L Potassium (3.5-5.1) mmol/L Chloride (98-107) mmol/L Carbon Dioxide (22-30) mmol/L Anion Gap mmol/L BUN (7-17) mg/dL Creatinine (0.52-1.04) mg/dL Est GFR (MDRD) Af Amer (>60 ml/min/1.73 sqM) Est GFR (MDRD) Non-Af (>60 ml/min/1.73 sqM) Glucose (74-99) mg/dL Plasma Lactic Acid Ricco 1.0 (0.7-2.0) mmol/L Calcium (8.4-10.2) mg/dL Total Bilirubin (0.2-1.3) mg/dL AST (14-36) U/L ALT (9-52) U/L Alkaline Phosphatase (38-126) U/L Total Protein (6.3-8.2) g/dL Albumin (3.5-5.0) g/dL Amylase (30-110) U/L Lipase (23-300) U/L Urine Color Yellow Urine Appearance Cloudy H (Clear) Urine pH 6.0 (5.0-8.0) Ur Specific [place] 1.025 (1.001-1.035) Urine Protein 1+ H (Negative) Urine Glucose (UA) Negative (Negative) Urine Ketones Negative (Negative) Urine Blood Negative (Negative) Urine Nitrite Negative (Negative) Urine Bilirubin Negative (Negative) Urine Urobilinogen 2.0 (<2.0) mg/dL Ur Leukocyte Esterase Moderate H (Negative) Urine RBC 7 H (0-5) /hpf Urine WBC 10 H (0-5) /hpf Ur Squamous Epith Cells 5 H (0-4) /hpf Hyaline Casts 11 H (0-2) /lpf Urine Mucus Many H (None) /hpf Urine HCG, Qual (Not Detectd) Disposition Clinical Impression: Abdominal pain Disposition: ADMITTED IP TO THIS HOSP Condition: Fair
[2016-12-19] MEDS: KETOROLAC 30 MG/ML 1 ML VIAL IVP PRN ×3 (09:24→20:48)
[2016-12-19] MEDS: SODIUM CHLORIDE 0.9% 1,000 ML IV SCH ×2 (09:30→23:59)
[2016-12-19] MEDS: FAMOTIDINE 20 MG TAB PO SCH ×2 (09:30→21:53)
--- NOTE | 2016-12-19 14:44 | P.GSHP ---
History of Present Illness H&P Date: 12/19/16 Chief Complaint: Nausea , Vomiting and Diarrhea Patient is a 46 female who underwent lysis of adhesions last week. She went home and was doing fine when suddenly she started having severe nausea abdominal pain and diarrhea. She's had long long history of chronic probably due to bowel obstructions in the past. She continues to have nausea and is unable tolerate any diet at this time. She gets lightheaded when she has the nausea. At the [facility] melena. There has been chronic weight loss. There are no other issues at this time - Constitutional Constitutional: Denies chills, Denies fever - Cardiovascular Cardiovascular: Denies chest pain, Denies shortness of breath - Respiratory Respiratory: Denies cough, Denies 7 - Gastrointestinal Gastrointestinal: Reports as per HPI - Musculoskeletal Musculoskeletal: Denies myalgias Past Medical History Past Medical History: Asthma, GERD/Reflux, Hypertension, Mitral Valve Prolapse ( MVP), Osteoarthritis (OA), Seizure Disorder, Syncope Additional Past Medical History / Comment(s): migraines and chronic nausea, DDD , 3 herniated disc, no longer needs BP med, last seizure 2015. STATES HAS AURA' S DAILY, HAS MEDIPORT. VERY HARD IV START History of Any Multi-Drug Resistant Organisms: None Reported Past Surgical History: Appendectomy, Cholecystectomy, Hysterectomy, Orthopedic Surgery, Tubal Ligation Additional Past Surgical History / Comment(s): surg. for small bowel obstruction , right internal jugular mediport placement - November 2014, HAS HAD 3 MEDIPORTS repair fx. left foot, surg. for kidney stones LAPROSCOPYN FOR 01/2016 lysis of adhesions Past Anesthesia/Blood Transfusion Reactions: Previous Problems w/ Anesthesia, Motion Sickness, Postoperative Nausea & Vomiting (PONV) Additional Past Anesthesia/Blood Transfusion Reaction / Comment(s): pt states she has post anesthesia seizures sometimes, severe PONV Past Psychological History: Anxiety Smoking Status: Never smoker Past Alcohol Use History: None Reported Past Drug Use History: None Reported - Past Family History Mother Family Medical History: Cancer Additional Family Medical History / Comment(s): leukemia Father Family Medical History: Cancer Medications and Allergies Home Medications Medication Instructions Recorded Confirmed Type Albuterol Inhaler [Ventolin Hfa 1 - 2 puff INHALATION RT-QID PRN 11/08/14 History Inhaler] LORazepam [Ativan] 1 mg PO BID 11/08/14 12/19/16 History Ondansetron [Zofran] 4 mg PO Q12HR PRN 11/08/14 12/19/16 History Ranitidine HCl [Zantac] 150 mg PO BID 11/08/14 12/19/16 History Gabapentin [Neurontin] 800 mg PO QID 04/17/15 12/19/16 History Polyethylene Glycol 3350 [Miralax] 17 gm PO DAILY PRN 04/17/15 12/19/16 History Topiramate [Topamax] 300 mg PO Q8HR 04/17/15 12/19/16 History Docusate [Colace] 100 mg PO DAILY 01/08/16 12/19/16 History Lacosamide [Vimpat] 150 mg PO BID 01/08/16 12/19/16 History Lactulose [Constulose] 10 gm PO DAILY PRN 01/08/16 12/19/16 History Cholecalciferol [Vitamin D3] 1,000 unit PO DAILY 10/08/16 12/19/16 History Phenytoin Sodium Extended 300 mg PO BID 12/08/16 12/19/16 History [Dilantin] Allergies Allergy/AdvReac Type Severity Reaction Status Date / Time hydromorphone HCl Allergy Severe Chest Pain Verified 12/19/16 07:59 [From Dilaudid] morphine Allergy Severe Rapid Verified 12/19/16 07:59 Heart Rate Penicillins Allergy Severe Rapid Verified 12/19/16 07:59 Heart Rate prochlorperazine edisylate Allergy Severe Rapid Verified 12/19/16 07:59 [From Compazine] Heart Rate prochlorperazine maleate Allergy Severe Rapid Verified 12/19/16 07:59 [From Compazine] Heart Rate Surgical - Exam Vital Signs Temp Pulse Resp BP Pulse Ox 98.6 F 115 H 20 144/81 98 12/19/16 05:21 12/19/16 05:21 12/19/16 05:21 12/19/16 05:21 12/19/16 05:21 - General no distress - Eyes PERRL, no icteric, no deviation - ENT normal pinna, normal nares, normal mucosa - Respiratory normal expansion - Cardiovascular Rhythm: regular - Abdomen The patient is in place and is receiving serous fluid. Dressing is in place. Abdomen: soft, tender, surgical scars Results - Labs 12/19/16 06:03 12/19/16 06:03 - Imaging CT scan - abdomen: report reviewed, image reviewed CT scan - pelvis: report reviewed, image reviewed Assessment and Plan (1) Diarrhea Status: Acute (2) Abdominal pain Status: Acute Plan: This patient is well-known to Dr. Gr. She presents after having surgery at its week. Computed Tomography Scan Was Suspicious for Possible Bowel Dissection. Despite Time I Believe That Her Nausea and Vomiting May Be Related to a Couple of Things She Has Had a Chronic History of Nausea and Was Being Well Controlled by the Scopolamine Which She'll Be Used. We Will Check the Stool for C. diff. As Far As the Possible Bowel Resection Will Repeat X-Rays in the Morning and Go from There I Believe These Are Chronic Changes Related to Her Chronic Scar Tissue Formation and Are Not Related to Any Current Issues. I' m the Patient She'll Be Kept on Sips of Clears at This Time As Her Nausea Is Managed. She May Require TPN and Possible PICC Line Placement Just to Allow for Bowel Rest. Dr. Durán Will Be Back Tomorrow Morning and Will Be Taking over.
[2016-12-19] MEDS: SCOPOLAMINE 1.5MG/72HR PATCH TRANSDERM SCH (15:01)
[2016-12-19] MEDS: GABAPENTIN 400 MG CAP PO SCH ×2 (17:24→21:53)
[2016-12-19] MEDS ORDERED: ONDANSETRON 4 MG TAB PO PRN (18:02)
[2016-12-19] MEDS ORDERED: ONDANSETRON 8 MG in SODIUM CHLORIDE 0.9% 50 ML IVPB PRN (18:30)
[2016-12-19] MEDS: PHENYTOIN SODIUM EXTENDED 100 MG CAP PO SCH (21:53)
[2016-12-19] MEDS: LORazepam 1 MG TAB PO SCH (21:53)
[2016-12-19] MEDS ORDERED: ACETAMINOPHEN IV (For NPO) 1,000 MG in EMPTY BAG 1 BAG IVPB PRN (22:19)
[2016-12-19] MEDS ORDERED: LEVOFLOXACIN 500MG-D5W PMX 500 MG in DEXTROSE/WATER 1 100ML.BAG IVPB SCH (22:30)
[2016-12-19] MEDS: LACOSAMIDE 150 MG TABLET PO SCH (23:50)
[2016-12-20] MEDS: DEXTROSE 5%-0.45% NACL 1,000 ML with POTASSIUM CHLORIDE 20 MEQ IV SCH ×6 (00:08→22:45)
[2016-12-20] MEDS: METOCLOPRAMIDE 5 MG/ML 2 ML VIAL IVP PRN ×3 (00:09→16:50)
[2016-12-20] MEDS: TOPIRAMATE 100 MG TAB PO SCH ×3 (01:13→16:13)
[2016-12-20 07:05] LABS: Basophils % (A) 0 %; CH 31.4; Eosinophils # (A) 0.3 k/uL (0-0.7); Eosinophils % (A) 7 %; HCT 39.5 % (34.0-46.0); HGB 13.6 gm/dL (11.4-16.0); Luc % (Auto) 2; Lymphocytes # (A) 0.9 k/uL (1.0-4.8); Lymphocytes % (A) 17 %; MCHC 34.5 g/dL (31.0-37.0); Mean Platelet Volume 6.5; Monocytes # (A) 0.5 k/uL (0-1.0); Monocytes % (A) 9 %; Neutrophils # (A) 3.4 k/uL (1.3-7.7); Neutrophils % (A) 65 %; RBC 4.39 m/uL (3.80-5.40); RDW 12.6 % (11.5-15.5); WBC 5.2 k/uL (3.8-10.6); WBC (Perox) 5.38
[2016-12-20 07:22] LABS: Anion Gap 9 mmol/L; Blood Urea Nitrogen 16 mg/dL (7-17); Calcium 8.7 mg/dL (8.4-10.2); Carbon Dioxide 21 mmol/L (22-30); Chloride 107 mmol/L (98-107); Glucose 124 mg/dL (74-99); Non-African American GFR(MDRD) >60 (>60 ml/min/1.73 sqM); Potassium 3.6 mmol/L (3.5-5.1); Sodium 137 mmol/L (137-145)
[2016-12-20] MEDS ORDERED: SODIUM CHLORIDE 0.9% 2,000 ML IV ONE (07:57)
[2016-12-20] MEDS ORDERED: DEXAMETHASONE SOD PHOSPHATE 10 MG/ML 1 ML VIAL IV STA ×2 (07:58→20:45)
[2016-12-20] MEDS: LACOSAMIDE 150 MG TABLET PO SCH ×2 (08:17→22:48)
[2016-12-20] MEDS: GABAPENTIN 400 MG CAP PO SCH ×4 (08:17→22:49)
[2016-12-20] MEDS: ENOXAPARIN 40 MG/0.4 ML SYRINGE SQ SCH (08:17)
[2016-12-20] MEDS: FAMOTIDINE 20 MG TAB PO SCH (08:17)
[2016-12-20] MEDS: PHENYTOIN SODIUM EXTENDED 100 MG CAP PO SCH ×2 (08:17→22:48)
[2016-12-20] MEDS: LORazepam 1 MG TAB PO SCH ×2 (08:17→22:48)
[2016-12-20] MEDS: KETOROLAC 30 MG/ML 1 ML VIAL IVP PRN ×3 (08:28→23:02)
--- NOTE | 2016-12-20 09:45 | XR ---
Abdomen HISTORY: Bowel obstruction, abdomen pain Frontal view of the abdomen on 2 images correlated to previous exam 20 June 2015, CT scan 19 December 2016 There are air-fluid levels without bowel distention. Bases are clear. Surgical clips are present in t he right upper quadrant. No pneumoperitoneum. Catheter present within the pelvis. Surgical clips also present within the pelvis. IMPRESSION: Findings could represent ileus or enteritis rather than obstruction, follow-up as indicat ed.
[2016-12-20] MEDS: MAGNESIUM SULFATE-D5W PMX 1 GM in DEXTROSE/WATER 1 100ML.BAG IVPB SCH ×2 (10:32→11:58)
--- NOTE | 2016-12-20 10:55 | P.PN ---
Subjective 46-year-old female being seen on rounds. Currently resting in bed. Patient states continues to have left lower quadrant pain and tenderness. Patient states urinating with no difficulty has had several stools this morning continues to report a sensation of nausea no active emesis. Has a Eber- Arita drain in place small amount of serous drainage noted in the bulb magnesium level 1.9 patient postop December 14 2016 exploratory laparotomy with lysis of adhesions with severe adhesive band disease takedown of internal hernia involving the proximal jejunum. Patient was able to be discharged on December 15. Patient states that when she went home she been doing relatively well up until December 19 when patient stated that she had developed nausea vomiting and frequent stooling. Patient denied any hematemesis stool for C. diff negative hemoglobin this morning 13.6 white count 5.2 is afebrile Objective - Vital Signs Vital signs: Vital Signs Temp 98.5 F 12/20/16 07:47 Pulse 76 12/20/16 07:47 Resp 16 12/20/16 07:47 BP 134/70 12/20/16 07:47 Pulse Ox 96 12/20/16 07:47 Intake & Output 12/19/16 12/20/16 12/20/16 18:59 06:59 18:59 Intake Total 500 2140 Balance 500 2140 Weight 88.451 kg Intake: IV 500 900 Sodium Chloride 0.9% 1, 500 900 000 ml @ 125 mls/hr IV . Q8H FIOR Rx#:[id number] Intake, IV Titration 700 Amount Dextrose 5%-0.45% NaCl 1, 500 000 ml @ 100 mls/hr IV . Q10H6M FIOR with Potassium Chloride 20 meq Rx#: [id number] Levofloxacin 500Mg-D5w 100 Pmx 500 mg In Dextrose/ Water 1 100ml.bag @ 100 mls/hr IVPB Q24H FIOR Rx#: [id number] Ondansetron 8 mg In 100 Sodium Chloride 0.9% 50 ml @ 100 mls/hr IVPB Q8H PRN Rx#:[id number] Oral 540 Other: Voiding Method Toilet # Voids 2 # Bowel Movements 4 - Exam Physical exam 46 -year-old female resting in bed appears in no acute distress talkative oriented 3 Lungs essentially clear adequate air movement no shortness of breath no cough heart S1-S2 audible and regular Abdomen surgical dressing dry abdominal binder in place bowel tones present tenderness left lower quadrant urinating no difficulty reports no nausea tolerating clear liquid states has had 3 stools this morning Eber-Arita drain left lower quadrant scant amount of serous drainage in the bulb Extremities no edema noted - Labs CBC & Chem 7: 12/20/16 06:34 12/20/16 06:34 Labs: Abnormal Lab Results - Last 24 Hours (Table) 12/20/16 12/20/16 Range/Units 06:34 06:34 Lymphocytes # 0.9 L (1.0-4.8) k/uL Carbon Dioxide 21 L (22-30) mmol/L Glucose 124 H (74-99) mg/dL Assessment and Plan Plan: Impression Present on admission nausea vomiting frequent stooling negative stool for C. diff possible due to ileus History of chronic constipation History of prior bowel obstructions Status post December 13 exploratory laparotomy with lysis of adhesions severe internal hernia involving the proximal jejunum Present on admission left lower quadrant pain unclear etiology History of a seizure disorder Chronic nausea sensation Present on admission hypokalemia. corrected Plan Electrolytes to be monitored closely keep in the therapeutic range IV fluid for hydration Pain control Resume home meds as appropriate Reglan 10 IV push every 6 hours when necessary Increase activity DVT and GI prophylaxis Further recommendations pending will follow The above dictated assessment and findings were discussed with dr tami Cox and the plan of care have been dictated as directed. Zenobia Zapata nurse practitioner acting as a scribe for dr garrett
[2016-12-20 16:22] LABS: Appearance,Urine Clear (Clear); Bilirubin,Urine Negative (Negative); Glucose,Urine (UA) Negative (Negative); Ketones,Urine Negative (Negative); Leukocyte Esterase,Urine Trace (Negative); Mucus,Urine Rare /hpf; Nitrite,Urine Negative (Negative); PH, Urine 5.5 (5.0-8.0); Particle Count 652; Protein,Urine Negative (Negative); RBC,Urine <1 /hpf (0-5); Specific Gravity,Urine 1.003 (1.001-1.035); Squamous Epithelial Cell,Urine <1 /hpf (0-4); UA Billing (MACRO vs. MICRO) MICRO; Urobilinogen,Urine <2.0 mg/dL (<2.0); WBC,Urine 2 /hpf (0-5)
[2016-12-20] MEDS: ACETAMINOPHEN TAB 325 MG TAB PO PRN (20:24)
--- NOTE | 2016-12-20 20:47 | P.PN ---
Progress Note - Text STEVEN including's surgical dressing discontinued. No signs of cellulitis or infection. She had acute nausea following acute abdominal pain. She was tolerating crackers. She has been placed on scheduled Reglan including Zofran and Decadron which have helped resolve her nausea this morning. We will follow closely with regards to correction of electrolytes and nausea.
[2016-12-21] MEDS: TOPIRAMATE 100 MG TAB PO SCH ×4 (00:34→23:32)
[2016-12-21] MEDS: ONDANSETRON 4 MG/2 ML VIAL IVP SCH ×5 (00:34→23:38)
[2016-12-21] MEDS: METOCLOPRAMIDE 5 MG/ML 2 ML VIAL IVP SCH ×5 (00:37→23:32)
[2016-12-21] MEDS: DEXTROSE 5%-0.45% NACL 1,000 ML with POTASSIUM CHLORIDE 20 MEQ IV SCH ×4 (05:47→22:37)
[2016-12-21] MEDS: KETOROLAC 30 MG/ML 1 ML VIAL IVP PRN ×2 (05:53→12:36)
[2016-12-21] MEDS: ENOXAPARIN 40 MG/0.4 ML SYRINGE SQ SCH (07:35)
[2016-12-21] MEDS: GABAPENTIN 400 MG CAP PO SCH ×4 (07:36→22:33)
[2016-12-21] MEDS: LORazepam 1 MG TAB PO SCH ×2 (07:36→22:37)
[2016-12-21] MEDS: PHENYTOIN SODIUM EXTENDED 100 MG CAP PO SCH ×2 (07:37→22:33)
[2016-12-21] MEDS: LACOSAMIDE 150 MG TABLET PO SCH ×2 (07:46→22:33)
[2016-12-21 08:30] LABS: ALT 66 U/L (9-52); AST 38 U/L (14-36); Alkaline Phosphatase 79 U/L (38-126); Anion Gap 12 mmol/L; Blood Urea Nitrogen 9 mg/dL (7-17); Calcium 9.2 mg/dL (8.4-10.2); Carbon Dioxide 20 mmol/L (22-30); Chloride 109 mmol/L (98-107); Glucose 128 mg/dL (74-99); Magnesium 2.2 mg/dL (1.6-2.3); Non-African American GFR(MDRD) >60 (>60 ml/min/1.73 sqM); Phosphorous 3.1 mg/dL (2.5-4.5); Potassium 3.8 mmol/L (3.5-5.1); Sodium 141 mmol/L (137-145); Total Bilirubin 0.5 mg/dL (0.2-1.3); Total Protein 6.8 g/dL (6.3-8.2)
[2016-12-21] MEDS ORDERED: RX INFO: IV CONTRAST WAS GIVEN 1 EACH MISC MISCELLANE PRN (09:14)
[2016-12-21] MEDS ORDERED: DEXAMETHASONE SOD PHOSPHATE 10 MG/ML 1 ML VIAL IV STA (09:18)
--- NOTE | 2016-12-21 10:17 | CT ---
EXAMINATION TYPE: CT abdomen pelvis w con DATE OF EXAM: 12/21/2016 10:00 AM COMPARISON: Abdominal pain. History of appendectomy, cholecystectomy, hysterectomy, tubal ligation, a nd small bowel surgery. Operative day 5 status post laparotomy HISTORY: Possible obstruction CT DLP: 943.5 mGycm CONTRAST: CT scan of the abdomen and pelvis is performed without Oral Contrast and with IV Contrast, patient in jected with 100 mL of Omnipaque 300. FINDINGS: LUNG BASES-: No visible nodule. New left patchy density left lower lobe may reflect an infiltrate or atelectasis. LIVER/GB: Cholecystectomy clips are in place. No space occupying hepatic lesion. Biliary tree is o f normal caliber. PANCREAS: No inflammation. No distinct mass. SPLEEN: No splenic enlargement. No lesion seen. ADRENALS: No nodule. No thickening. KIDNEYS/BLADDER: No hydronephrosis. No nephrolithiasis. Stable renal cystic changes identified. Ur inary bladder grossly unremarkable. BOWEL: Small bowel dilatation has progressed with a loop of bowel measuring 5.1 cm. Bowel loops are t hickened with fecalization noted within the more distal loops of dilated small bowel. The distal smal l bowel loops appear to be decompressed however demonstrate a prominent submucosal fat. This can be s een in entities such as Crohn's disease. Strandy attenuation is seen within the right lower quadrant small bowel mesentery without distinct abscess or drainable collection. Partial or early complete sma ll bowel obstruction is difficult to exclude given the lack of contrast. Large bowel appears decompre ssed. Drainage catheter has been removed in the interval. No evidence for free air at this time. GENITAL ORGANS: Hysterectomy changes noted. No adnexal mass seen. LYMPH NODES: No greater than 1cm abdominal or pelvic lymph nodes are appreciated. AORTA: No significant abnormality. OSSEOUS STRUCTURES: No significant abnormality is seen. OTHER: No significant additional abnormality is seen. IMPRESSION: 1. Mildly progressive small bowel dilatation with wall thickening and right lower quadrant transition zone suggested. Correlate for partial or early complete small bowel obstruction. As noted prominent submucosal fat may reflect features of Crohn's disease. 2. Right lower quadrant inflammatory change within the small bowel mesentery without abscess. No evid ence for free air. 3. Left lower lobe infiltrate.
--- NOTE | 2016-12-21 10:56 | XR ---
Abdomen HISTORY: Abnormal CT, bowel obstruction Correlation to prior CT scan dated 19 December 2016, plain film dated 20 December 2016 there is no bowel obstruction or pneumoperitoneum evident. Surgical clips are stable. Lung bases are clear. IMPRESSION: Postop changes, see dictated report CT abdomen pelvis same date
--- NOTE | 2016-12-21 11:39 | P.PN ---
Subjective 46-year-old female being seen in rounds with the surgical attending this morning. Patient continues to report "constant nausea sensation vomiting green bile passing no gas no stool this morning continue to have left lower quadrant pain unchanged" patient states the Zofran Decadron and Reglan off her some relief but the symptoms continue to persist patient states is not able to keep any liquids down and the thought of food "makes me feel nauseated". Labs were reviewed. Computed tomography scan of the abdomen pelvis has been ordered the computerized report results are reviewed it indicates left lower lobe infiltrate right lower quadrant inflammatory changes within the small bowel mesentery without abscess no evidence of free air. Mildly progressive small bowel dilatation with wall thickening and right lower quadrant transition zone suggested correlate for partial or early small bowel obstruction has remained afebrile postop December 14 2016 exploratory laparotomy with lysis of adhesions with severe adhesive band disease takedown of internal hernia involving the proximal jejunum. Patient was able to be discharged on December 15 Objective - Vital Signs Vital signs: Vital Signs Temp 98.2 F 12/21/16 07:32 Pulse 71 12/21/16 08:00 Resp 16 12/21/16 08:00 BP 149/80 12/21/16 07:32 Pulse Ox 94 L 12/21/16 07:32 Intake & Output 12/20/16 12/21/16 12/21/16 18:59 06:59 18:59 Intake Total 990 Balance 990 Intake: IV 400 Dextrose 5%-0.45% NaCl 1, 400 000 ml @ 100 mls/hr IV . Q10H6M FIOR with Potassium Chloride 20 meq Rx#: [id number] Oral 590 Other: Voiding Method Toilet Toilet # Voids 3 - Exam Physical exam 46 -year-old female resting in bed continues to report having a nausea sensation vomiting bile with left lower quadrant tenderness no stool this morning no appetite Lungs essentially clear adequate air movement no shortness of breath no cough heart S1-S2 audible and regular reviewed Abdomen surgical dressing dry abdominal binder in place bowel tones present tenderness left lower quadrant continues to report a nausea sensation states has been vomiting bile no stool this morning is not passing gas no difficulty in urinating Extremities no edema noted - Labs CBC & Chem 7: 12/20/16 06:34 12/21/16 07:27 Labs: Abnormal Lab Results - Last 24 Hours (Table) 12/20/16 12/21/16 Range/Units 16:13 07:27 Chloride 109 H (98-107) mmol/L Carbon Dioxide 20 L (22-30) mmol/L Glucose 128 H (74-99) mg/dL AST 38 H (14-36) U/L ALT 66 H (9-52) U/L Ur Leukocyte Esterase Trace H (Negative) Urine Mucus Rare H (None) /hpf Microbiology - Last 24 Hours (Table) 12/20/16 16:13 Urine Culture - Preliminary Urine,Voided Assessment and Plan Plan: Impression Present on admission nausea vomiting frequent stooling negative stool for C. diff possible due to ileus History of chronic constipation History of prior bowel obstructions Status post December 13 exploratory laparotomy with lysis of adhesions severe internal hernia involving the proximal jejunum Present on admission left lower quadrant pain unclear etiology History of a seizure disorder Chronic nausea sensation Present on admission hypokalemia. corrected Plan Electrolytes to be monitored closely keep in the therapeutic range IV fluid for hydration Pain control Resume home meds as appropriate Reglan 10 IV push every 6 hours when necessary Increase activity DVT and GI prophylaxis Encourage early ambulation Scopolamine patch as ordered Further recommendations pending will follow The above dictated assessment and findings were discussed with dr garrett Impression and the plan of care have been dictated as directed. Zenobia Zapata nurse practitioner acting as a scribe for dr garrett
--- NOTE | 2016-12-21 13:45 | P.PN ---
Progress Note - Text CT of the abdomen and pelvis reviewed demonstrating findings consistent with small bowel obstruction from potential Crohn's disease, newly diagnosed per Computed tomography scan. Patient features highly suspicious for inflammatory bowel disease with edema along the terminal ileum following her surgery. We'll consult gastrointestinal services for management. Placement of nasogastric tube for obstruction. Recommend full inpatient admission secondary to findings.
[2016-12-21] MEDS ORDERED: LORazepam 2 MG/ML SYRINGE IV STA (14:41)
[2016-12-21] MEDS ORDERED: LIDOCAINE-PRILOCAINE 2.5-2.5% CREAM 5 GM TUBE TOPICAL STA (21:06)
[2016-12-21] MEDS ORDERED: LORazepam 2 MG/ML SYRINGE IM STA (21:10)
[2016-12-21] MEDS ORDERED: DEXAMETHASONE SOD PHOSPHATE 10 MG/ML 1 ML VIAL IM STA (21:11)
--- NOTE | 2016-12-21 21:17 | P.PN ---
Progress Note - Text Patient had lost IV access. She has history of a port for peripheral access. Agree with emergency access of Mediport for IV fluid hydration. She has history of she disorder and neurology consult and for management. Indication performed regarding malfunctioning of nasogastric tube. Abdominal x- ray ordered to evaluate positioning of NG tube including flushing NG tube frequently. In my absence, hope surgical is covering.
--- NOTE | 2016-12-21 21:44 | XR ---
EXAMINATION TYPE: XR abdomen 1V DATE OF EXAM: 12/21/2016 9:38 PM COMPARISON: Today HISTORY: Abdominal pain TECHNIQUE: Single view FINDINGS: There is a nasogastric tube that is looped in the gastric fundus. There is contrast in the renal collecting systems. Lung bases are clear. There are clips from cholecystectomy. IMPRESSION: Nasogastric tube appears looped in the gastric fundus.
--- NOTE | 2016-12-21 21:46 | XR ---
EXAMINATION TYPE: XR abdomen 1V DATE OF EXAM: 12/21/2016 9:38 PM COMPARISON: Today HISTORY: Abdominal pain. Tube placement TECHNIQUE: Single view FINDINGS: There is a nasogastric tube with the tip in the gastric fundus. There is contrast in the re nal collecting systems. There is possible mild infiltrate in the left lower lobe. There is no pleural effusion. IMPRESSION: Nasogastric tube has tip probably in the gastric fundus.
[2016-12-22] MEDS: D5-0.45% NACL WITH KCL 20MEQ/L 1,000 ML IV SCH ×3 (01:44→22:36)
[2016-12-22] MEDS: KETOROLAC 30 MG/ML 1 ML VIAL IVP PRN ×2 (01:51→12:22)
[2016-12-22] MEDS: ONDANSETRON 4 MG/2 ML VIAL IVP SCH ×3 (05:31→17:10)
[2016-12-22] MEDS: METOCLOPRAMIDE 5 MG/ML 2 ML VIAL IVP SCH ×4 (05:34→23:25)
[2016-12-22] MEDS: TOPIRAMATE 100 MG TAB PO SCH ×2 (10:14→17:10)
[2016-12-22] MEDS: PHENYTOIN SODIUM EXTENDED 100 MG CAP PO SCH (10:15)
[2016-12-22] MEDS: LACOSAMIDE 150 MG TABLET PO SCH (10:15)
[2016-12-22] MEDS: LORazepam 1 MG TAB PO SCH (10:15)
[2016-12-22] MEDS: GABAPENTIN 400 MG CAP PO SCH ×3 (10:15→17:10)
[2016-12-22] MEDS: ENOXAPARIN 40 MG/0.4 ML SYRINGE SQ SCH (10:15)
[2016-12-22] MEDS: PANTOPRAZOLE 40 MG/10 ML VIAL IVP SCH (10:16)
--- NOTE | 2016-12-22 11:13 | XR ---
Abdomen HISTORY: Bowel obstruction View of the abdomen on 2 images correlated to prior exam dated 21 December 2016 Surgical clips again noted within the abdomen. NG tube shows the distal tip within the stomach and is coiled. Difficult to exclude a kink. Lung bases are clear. Mildly distended loop of small bowel pres ent in the left hemiabdomen. Contrast present within the bladder. IMPRESSION: NG tube has been advanced interval and may be kinked. Correlate quickly. Mild small bowel distention, additional follow-up recommended.
--- NOTE | 2016-12-22 14:00 | P.PN ---
Subjective 46 -year-old female being seen. Sitting up in bed. Patient states is not passing any gas. But there is less abdominal pain. The nasal gastric tube is in place connected to suction a few hypoactive bowel tones noted. There is a consultation for GI service and neurology. Patient does have a history of a seizure disorder. Patient did have a CAT scan of the abdomen and pelvis it did show findings consistent with a small bowel obstruction from potential Crohn's disease newly diagnosed per computed tomography scan. Additionally placement of a nasal gastric tube was obtained yesterday on December 21. Patient's symptoms suspicious for inflammatory bowel disease with edema along the terminal ileum following her surgery postop December 14 2016 exploratory laparotomy with lysis of adhesions with severe adhesive band disease takedown of internal hernia involving the proximal jejunum. Patient was able to be discharged on December 15 did return on December 19. Patient stated that she did go home was doing well when she developed a sudden onset of severe nausea abdominal pain and diarrhea. Patient has a long history of chronic probably due to bowel obstructions in the past of nausea. Patient states he gets lightheaded with nausea. Additionally the patient has a MediPort in place due to poor IV access in the past subsequent the patient was admitted to the services of the attending Objective - Vital Signs Vital signs: Vital Signs Temp 98.2 F 12/22/16 07:40 Pulse 80 12/22/16 07:40 Resp 17 12/22/16 07:40 BP 108/71 12/22/16 07:40 Pulse Ox 97 12/22/16 07:40 Intake & Output 12/21/16 12/22/16 12/22/16 18:59 06:59 18:59 Intake Total 500 800 0 Output Total 200 Balance 500 800 -200 Weight 88.451 kg Intake: IV 500 800 Dextrose 5%-0.45% NaCl 1, 500 800 000 ml @ 100 mls/hr IV . Q10H6M FIOR with Potassium Chloride 20 meq Rx#: [id number] Oral 0 0 0 Output: Gastric Drainage 200 Other: Voiding Method Toilet Toilet # Voids 3 2 - Exam Physical exam 46-year-old female sitting up in bed states the abdominal pain has improved pleasant cooperative oriented 3 Lungs diminished at the bases otherwise adequate air movement Heart S1-S2 audible regular Abdomen soft not distended slight tenderness dressing to the surgical site dry nasal gastric tube in place connected to suction few hypoactive bowel tones noted nasal gastric tube flushes appropriately extremities no edema noted - Labs CBC & Chem 7: 12/20/16 06:34 12/21/16 07:27 Labs: Microbiology - Last 24 Hours (Table) 12/20/16 16:13 Urine Culture - Final Urine,Voided Assessment and Plan Plan: Impression Present on admission nausea vomiting frequent stooling negative stool for C. diff possible due to ileus History of chronic constipation History of prior bowel obstructions Status post December 13 exploratory laparotomy with lysis of adhesions severe internal hernia involving the proximal jejunum Present on admission left lower quadrant pain unclear etiology History of a seizure disorder Chronic nausea sensation Present on admission hypokalemia. corrected Persistent postop abdominal pain unexpected CT of the abdomen pelvis demonstrate findings consistent with small bowel obstruction from potential Crohn's disease newly diagnosed Present on admission abdominal pain highly suspicious for inflammatory bowel disease with edema along the terminal ileum unexpected postop findings Plan Electrolytes to be monitored closely keep in the therapeutic range IV fluid for hydration Pain control Resume home meds as appropriate Reglan 10 IV push every 6 hours when necessary Increase activity DVT and GI prophylaxis Encourage early ambulation Scopolamine patch as ordered Further recommendations pending will follow Await neurology eval currently patient is nothing by mouth with a nasogastric tube recommendations a seizure medications Await GIs eval possible Crohn's disease The above dictated assessment and findings were discussed with dr Dr. Manolo Finley covering for Dr. Garrett Impression and the plan of care have been dictated as directed. Zenobia Zapata nurse practitioner acting as a scribe for Dr. Alfred covering for dr garrett
--- NOTE | 2016-12-22 15:09 | CONS ---
DATE OF CONSULTATION: 12/22/2016 REASON FOR CONSULTATION: Abdominal pain, nausea, vomiting, rule out Crohn's disease. HISTORY OF PRESENT ILLNESS: The patient is a 46-year-old pleasant lady who was admitted to the hospital 3 days ago with abdominal pain, nausea, vomiting for one week duration. The patient underwent exploratory laparotomy with lysis of adhesions by Dr. Durán 10 days ago. She was discharged home 3 days later and she started having worsening abdominal discomfort associated with nausea, vomiting, and unable to tolerate any diet. She stayed home for 2 days, became more lightheaded and dizzy and with worsening symptoms and hence came into the emergency room 4 days ago and subsequently admitted to the hospital for further evaluation. Initially in the ER, she did have a CT of the abdomen and pelvis done that showed mildly dilated thickened loops of small bowel in the left abdomen, which was nonspecific. She was being treated symptomatically; however, her symptoms continued to progressively get worse and in fact yesterday. She had an NG tube placed because of persistent nausea, vomiting. She had another CAT scan done yesterday afternoon which showed mild progressive small bowel dilation with wall thickening of the right lower quadrant, transition zone was suggested and possibility of early partial small bowel obstruction versus Crohn's disease was suggested by the radiologist and hence we are consulted in regards to this issue. The patient denies any past medical history of Crohn's. Prior to her surgery, she was having chronic abdominal pain with intermittent nausea, vomiting. She did have a colonoscopy by Dr. Durán a year ago and according to the patient, it was within normal limits. She usually has constipation with bowel movement once every 3 to 4 days and usually takes [id number] laxatives as needed. No weight loss. No fever, chills, night sweats. Her past medical history is significant for asthma, GERD, hypertension, mitral valve prolapse, seizure disorder, and osteoarthritis, chronic migraines. PAST SURGICAL HISTORY: Cholecystectomy, hysterectomy, orthopedic surgery, tubal ligation, appendectomy, diagnostic laparoscopy with lysis of adhesions a year go, now exploratory laparotomy with lysis of adhesions 10 days ago. Medications at home include albuterol, Ativan, Zofran, Zantac, Neurontin, MiraLax, Topamax, Colace, Vimpat, Constulose, vitamin D3, Dilantin. FAMILY HISTORY: Mother has leukemia, father had cancer. SOCIAL HISTORY: No smoking. No alcohol use. REVIEW OF SYSTEMS: CARDIOPULMONARY: She denies any chest pain or shortness of breath. GENITOURINARY: No dysuria or hematuria. MUSCULOSKELETAL: Unremarkable. SKIN: Unremarkable. ENDOCRINE: Unremarkable. PSYCHIATRIC: Unremarkable. NEUROLOGY: Unremarkable. ENT: Vision unremarkable. CONSTITUTIONAL: No recent weight loss. No fever, chills, night sweats. ALLERGIES: DILAUDID, PENICILLIN, MORPHINE, COMPAZINE. On physical examination, she appears comfortable, in no apparent distress. She still has an NG tube in place. Vital signs are stable. Blood pressure is 120/72, pulse 88, temperature 98.9. HEENT EXAMINATION: Unremarkable. Conjunctivae pink. Sclerae nonicteric. Oral cavity no lesions. NECK: No JVD or lymph node enlargement. Chest was clear to auscultation. HEART: Regular rate and rhythm. Abdomen is soft. There was a midline scar noted with dylan. There was mild diffuse tenderness, but bowel sounds are positive. EXTREMITIES: No pedal edema. SKIN: No rashes. NEURO: She is alert and oriented x3. No focal deficits. Labs from yesterday, WBC 5.2, hemoglobin 13.2, platelets are normal. Basic metabolic panel is within normal limits. Urine analysis showed leukocyte esterase that was positive. IMPRESSION: This is a patient who is status post exploratory laparotomy with lysis of adhesions by Dr. Durán 10 days ago who was discharged 3 days later, was readmitted to the hospital almost 4 days ago with worsening abdominal pain associated with nausea, vomiting, and constipation. She initially had a CAT scan at the time of admission to the hospital which was unremarkable other than dilated small bowel loops and repeat CAT scan done yesterday because of worsening symptoms did show worsening small bowel loop dilation and some thickening in the right lower quadrant area suspicious for Crohn's. The patient does not have any prior history of Crohn's disease and on recently exploratory laparotomy as per the surgical history, there was no obvious Crohn's that was described. Hence at this time, it appears that radiological findings of recent CAT scan would be related to recent surgery rather than inflammatory bowel disease. RECOMMENDATIONS: 1. Will recommend a small bowel series once her overall condition improves to evaluate the distal small bowel and the terminal ileum. 2. At this time, I will not start her on any medications since it is unlikely we are dealing with Crohn's disease at the present time. 3. Continue with symptomatic and supportive care as per Surgery, and will follow the patient closely during her hospital stay. Thank you for this consultation.
[2016-12-22] MEDS: SCOPOLAMINE 1.5MG/72HR PATCH TRANSDERM SCH ×2 (15:13→18:21)
[2016-12-23] MEDS: TOPIRAMATE 100 MG TAB PO SCH ×3 (00:20→17:56)
[2016-12-23] MEDS: PHENYTOIN SODIUM EXTENDED 100 MG CAP PO SCH ×2 (00:20→07:47)
[2016-12-23] MEDS: GABAPENTIN 400 MG CAP PO SCH ×4 (00:20→16:28)
[2016-12-23] MEDS: LACOSAMIDE 150 MG TABLET PO SCH ×2 (00:23→07:52)
[2016-12-23] MEDS: ONDANSETRON 4 MG/2 ML VIAL IVP SCH ×4 (00:23→21:53)
[2016-12-23] MEDS: LORazepam 1 MG TAB PO SCH ×2 (00:23→07:51)
[2016-12-23] MEDS: METOCLOPRAMIDE 5 MG/ML 2 ML VIAL IVP SCH ×3 (06:16→18:24)
[2016-12-23] MEDS: ENOXAPARIN 40 MG/0.4 ML SYRINGE SQ SCH (07:46)
[2016-12-23] MEDS: PANTOPRAZOLE 40 MG/10 ML VIAL IVP SCH (07:46)
[2016-12-23] MEDS: D5-0.45% NACL WITH KCL 20MEQ/L 1,000 ML IV SCH (07:48)
[2016-12-23] MEDS ORDERED: BISACODYL 10 MG SUPP RECTAL STA (09:49)
[2016-12-23] MEDS ORDERED: BENZOCAINE SPRAY 100 APPLIC/CAN TOPICAL PRN (09:53)
[2016-12-23 11:29] LABS: Ionized Calcium 5.2 mg/dL (4.5-5.3)
[2016-12-23 11:33] LABS: ALT 85 U/L (9-52); AST 53 U/L (14-36); Alkaline Phosphatase 79 U/L (38-126); Anion Gap 7 mmol/L; Blood Urea Nitrogen 8 mg/dL (7-17); Calcium 8.8 mg/dL (8.4-10.2); Carbon Dioxide 22 mmol/L (22-30); Chloride 109 mmol/L (98-107); Glucose 131 mg/dL (74-99); Magnesium 1.9 mg/dL (1.6-2.3); Non-African American GFR(MDRD) >60 (>60 ml/min/1.73 sqM); Phosphorous 3.2 mg/dL (2.5-4.5); Sodium 138 mmol/L (137-145); Total Bilirubin 0.4 mg/dL (0.2-1.3); Total Protein 6.1 g/dL (6.3-8.2); Triglycerides 184 mg/dL (<150)
--- NOTE | 2016-12-23 11:38 | P.PN ---
Subjective Principal diagnosis: abdominal pain nausea vomiting 46 year old female admitted with N/V diarrhea abdominal pain. S/p abdominal surgery about 12 days ago. Evaluated yesterday for evaulation of crohns disease. Denies passage of stool or flatus since admission. abdominal xrays ordered; results pending. Reports mid abdominal discomfort. Afebrile. Objective - Vital Signs Vital signs: Vital Signs Temp 97.8 F 12/23/16 07:00 Pulse 84 12/23/16 08:00 Resp 17 12/23/16 08:00 BP 133/93 12/23/16 07:00 Pulse Ox 95 12/23/16 07:00 Intake & Output 12/22/16 12/23/16 12/23/16 18:59 06:59 18:59 Intake Total 240 1600 Output Total 200 2102 Balance 40 -502 Weight 88.451 kg Intake: Intake, IV Titration 1600 Amount D5-0.45% NaCl with KCl 1600 20Meq/l 1,000 ml @ 100 mls/hr IV .Q10H FIOR Rx#: [id number] Oral 240 Output: Gastric Drainage 200 2100 Urine 2 Other: Voiding Method Toilet # Voids 1 - Exam General appearance: The patient is alert, oriented, in no acute distress. HET: Head is normocephalic and atraumatic. Pupils are equal and reactive. Oropharynx is clear without lesions. NG tube with bilious fluid. Neck: Supple without lymphadenopathy. Trachea midline. Heart: S1 S2. Regular rate and rhythm. Lungs: No crackles or wheezes are heard. Abdomen: Soft, midline abdominal incision healing without erythema or drainage with dressing, hypoactive bowel sounds mildly bloated mild diffuse tenderness across mid abdomen. No peritoneal signs. No palpable organomegaly or masses. Extremities: Normal skin color and turgor. No cyanosis, rash, ulceration, clubbing, or edema. Radial and pedal pulses are 2/4 bilaterally. Neurological: No focal deficits. Strength and sensation are grossly intact. - Labs CBC & Chem 7: 12/20/16 06:34 12/21/16 07:27 Assessment and Plan Plan: 1. Abdominal pain nausea vomiting and diarrhea prior to admission. Possible ileus. Status post exploratory laparotomy 1-1/2 weeks ago with lysis of adhesions. No evidence to suggest Crohn's disease at this time. 2. History of abdominal adhesions. Recommendations: 1. we'll defer to surgical service for additional instructions and management. Continue with NG tube decompression. Recommend small bowel series once patient is passing flatus and bowel movements. We'll continue to follow with you. Assessment and plan a care discussed with Dr. Araiza.
--- NOTE | 2016-12-23 11:49 | XR ---
2 view abdomen HISTORY: Bowel obstruction 2 views of the abdomen on 3 images Correlation to prior exam 2016 There is no significant change. Some air-fluid levels are noted on the upright exam without bowel dis tention. IMPRESSION: Difficult to exclude bowel obstruction on the basis of this exam. NG tube may be folded w ithin the stomach. Postop changes are noted.
[2016-12-23 11:52] LABS: Hemoglobin A1C 5.1 % (4.2-6.1)
--- NOTE | 2016-12-23 12:02 | P.PN ---
Subjective 46-year-old female being seen this morning patient stated that she had an episode of feeling nauseated and did vomit what appeared to be bile. Patient continues to report nausea sensation. Patient has not had a stool since December 21. Continues to report having abdominal discomfort. Patient has been seen by GI service for an evaluation of Crohn's disease. Patient's abdominal x-ray this morning NG tube may be folded within the stomach some air-fluid levels are noted. Nursing reports a nasal gastric tube has put out 200 since 7 AM for the last 4 hours. Patient states not passing any gas. GIs eval noted recommendations to continue with an NG tube for decompression recommend small bowel series once patient is passing gas and having bowel movements and currently there is no evidence to suggest Crohn disease postop December 14 2016 exploratory laparotomy with lysis of adhesions with severe adhesive band disease takedown of internal hernia involving the proximal jejunum. Patient was able to be discharged on December 15 did return on December 19. Patient stated that she did go home was doing well when she developed a sudden onset of severe nausea abdominal pain and diarrhea. Patient has a long history of chronic probably due to bowel obstructions in the past of nausea. Patient states he gets lightheaded with nausea. Additionally the patient has a MediPort in place due to poor IV access in the past subsequent the patient was admitted to the services of the attending Objective - Vital Signs Vital signs: Vital Signs Temp 97.8 F 12/23/16 07:00 Pulse 84 12/23/16 08:00 Resp 17 12/23/16 08:00 BP 133/93 12/23/16 07:00 Pulse Ox 95 12/23/16 07:00 Intake & Output 12/22/16 12/23/16 12/23/16 18:59 06:59 18:59 Intake Total 240 1600 Output Total 200 2102 Balance 40 -502 Weight 88.451 kg Intake: Intake, IV Titration 1600 Amount D5-0.45% NaCl with KCl 1600 20Meq/l 1,000 ml @ 100 mls/hr IV .Q10H FIOR Rx#: [id number] Oral 240 Output: Gastric Drainage 200 2100 Urine 2 Other: Voiding Method Toilet # Voids 1 - Exam Physical exam 46-year-old female sitting up in bed states the abdominal pain has persisted. Patient does report having an emesis this morning of bile continues to report a nausea sensation pleasant cooperative oriented 3 Lungs diminished at the bases otherwise adequate air movement Heart S1-S2 audible regular Abdomen soft not distended slight tenderness dressing to the surgical site dry nasal gastric tube in place connected to suction few hypoactive bowel tones noted nasal gastric tube flushes appropriately extremities no edema noted - Labs CBC & Chem 7: 12/20/16 06:34 12/23/16 11:10 Labs: Abnormal Lab Results - Last 24 Hours (Table) 12/23/16 Range/Units 11:10 Chloride 109 H (98-107) mmol/L Glucose 131 H (74-99) mg/dL AST 53 H (14-36) U/L ALT 85 H (9-52) U/L Total Protein 6.1 L (6.3-8.2) g/dL Albumin 3.4 L (3.5-5.0) g/dL Triglycerides 184 H (<150) mg/dL Assessment and Plan Plan: Impression Present on admission nausea vomiting frequent stooling negative stool for C. diff possible due to ileus History of chronic constipation History of prior bowel obstructions Status post December 13 exploratory laparotomy with lysis of adhesions severe internal hernia involving the proximal jejunum Present on admission left lower quadrant pain unclear etiology History of a seizure disorder Chronic nausea sensation Present on admission hypokalemia. corrected Persistent postop abdominal pain unexpected CT of the abdomen pelvis demonstrate findings consistent with small bowel obstruction from potential Crohn's disease newly diagnosed Present on admission abdominal pain highly suspicious for inflammatory bowel disease with edema along the terminal ileum unexpected postop findings Gastroenterology recommendations indicate no evidence to suggest Crohn's disease Plan Electrolytes to be monitored closely keep in the therapeutic range IV fluid for hydration Pain control Resume home meds as appropriate Reglan 10 IV push every 6 hours when necessary Increase activity DVT and GI prophylaxis Encourage early ambulation Scopolamine patch as ordered Further recommendations pending will follow Await neurology eval currently patient is nothing by mouth with a nasogastric tube recommendations a seizure medications GIs eval Jeremy evaluated no evidence to suggest Crohn's disease The above dictated assessment and findings were discussed with dr Dr. Manolo Finley covering for Dr. Garrett Impression and the plan of care have been dictated as directed. Zenobia Zapata nurse practitioner acting as a scribe for Dr. Alfred covering for dr garrett
[2016-12-23] MEDS: INSULIN LISPRO (humaLOG) 300 UNIT/3 ML VIAL SQ SCH ×2 (12:43→18:21)
[2016-12-23] MEDS: SODIUM CHLORIDE 0.9% IVPB SCH ×2 (13:18→23:43)
[2016-12-23] MEDS: PHENYTOIN SODIUM IVPB SCH ×2 (13:18→23:43)
[2016-12-23] MEDS ORDERED: POTASSIUM CHLORIDE 20 MEQ in WATER FOR INJECTION 1 100ML.BAG IVPB ONE (15:00)
[2016-12-23] MEDS ORDERED: MVI, ADULT NO.4 WITH VIT K 10 ML, TRACE (CONC-1ML/DOSE) 1 ML in AMINO ACID 5%-D25W+LYTE... IV SCH ×3 (15:30)
[2016-12-23] MEDS: SODIUM CHLORIDE 0.9% 1,000 ML IV SCH (16:21)
[2016-12-23] MEDS: MAGNESIUM SULFATE-D5W PMX 1 GM in DEXTROSE/WATER 1 100ML.BAG IVPB SCH (16:22)
[2016-12-23 17:48] LABS: Glucose,Whole Blood 113 mg/dL (75-99)
[2016-12-23] MEDS: LACOSAMIDE IV 150 MG in SODIUM CHLORIDE 0.9% 50 ML IVPB SCH (22:12)
[2016-12-23] MEDS: LORazepam 2 MG/ML SYRINGE IV SCH (23:22)
[2016-12-24] MEDS: GABAPENTIN 400 MG CAP PO SCH ×5 (00:04→22:19)
[2016-12-24 00:34] LABS: Glucose,Whole Blood 99 mg/dL (75-99)
[2016-12-24] MEDS: INSULIN LISPRO (humaLOG) 300 UNIT/3 ML VIAL SQ SCH ×4 (00:34→19:14)
[2016-12-24] MEDS: TOPIRAMATE 100 MG TAB PO SCH ×3 (00:37→19:16)
[2016-12-24] MEDS: ONDANSETRON 4 MG/2 ML VIAL IVP SCH ×5 (00:37→22:07)
[2016-12-24] MEDS: METOCLOPRAMIDE 5 MG/ML 2 ML VIAL IVP SCH ×4 (00:41→19:13)
[2016-12-24] MEDS: MAGNESIUM SULFATE-D5W PMX 1 GM in DEXTROSE/WATER 1 100ML.BAG IVPB SCH (00:46)
[2016-12-24 05:40] LABS: Glucose,Whole Blood 133 mg/dL (75-99)
[2016-12-24] MEDS: SODIUM CHLORIDE 0.9% 1,000 ML IV SCH ×2 (05:49→19:14)
[2016-12-24] MEDS: ENOXAPARIN 40 MG/0.4 ML SYRINGE SQ SCH (07:59)
[2016-12-24] MEDS: PANTOPRAZOLE 40 MG/10 ML VIAL IVP SCH (07:59)
[2016-12-24] MEDS: LACOSAMIDE IV 150 MG in SODIUM CHLORIDE 0.9% 50 ML IVPB SCH ×2 (08:06→22:55)
[2016-12-24] MEDS: LORazepam 2 MG/ML SYRINGE IV SCH ×2 (08:08→22:02)
[2016-12-24 08:17] LABS: Ionized Calcium 4.7 mg/dL (4.5-5.3)
[2016-12-24 08:31] LABS: Anion Gap 9 mmol/L; Blood Urea Nitrogen 8 mg/dL (7-17); Calcium 8.2 mg/dL (8.4-10.2); Carbon Dioxide 18 mmol/L (22-30); Chloride 112 mmol/L (98-107); Glucose 150 mg/dL (74-99); Magnesium 2.3 mg/dL (1.6-2.3); Non-African American GFR(MDRD) >60 (>60 ml/min/1.73 sqM); Phosphorous 3.3 mg/dL (2.5-4.5); Potassium 3.7 mmol/L (3.5-5.1); Sodium 139 mmol/L (137-145)
--- NOTE | 2016-12-24 08:44 | P.PN ---
Subjective Principal diagnosis: abdominal pain nausea vomiting 46 year old female admitted with N/V diarrhea abdominal pain. S/p abdominal surgery about 13 days ago. Passage of small amount of flatus early this morning no bowel movements despite enema yesterday. Reports mid abdominal discomfort. Afebrile. Receiving TPN. Objective - Vital Signs Vital signs: Vital Signs Temp 97.7 F 12/24/16 07:29 Pulse 85 12/24/16 07:29 Resp 16 12/24/16 07:29 BP 115/74 12/24/16 07:29 Pulse Ox 96 12/24/16 07:29 Intake & Output 12/23/16 12/24/16 12/24/16 18:59 06:59 18:59 Intake Total 800 Output Total 400 Balance -400 800 Weight 88.451 kg 83 kg Intake: Intake, IV Titration 800 Amount Mvi, Adult No.4 with Vit 240 K 10 ml Trace (Conc-1Ml/ Dose) 1 ml In Amino Acid 5%-D25w+Lytes*E* 1,000 ml @ 30 mls/hr IV .Q24H [facility] Rx#:[id number] Sodium Chloride 0.9% 1, 560 000 ml @ 70 mls/hr IV . [id number] [facility] Rx#:[id number] Output: Gastric Drainage 400 Other: Voiding Method Toilet Toilet # Voids 2 - Exam General appearance: The patient is alert, oriented, in no acute distress. HET: Head is normocephalic and atraumatic. Pupils are equal and reactive. Oropharynx is clear without lesions. NG tube with bilious fluid. Neck: Supple without lymphadenopathy. Trachea midline. Heart: S1 S2. Regular rate and rhythm. Lungs: No crackles or wheezes are heard. Abdomen: Soft, midline abdominal incision healing without erythema or drainage with dressing, hypoactive bowel sounds mildly bloated mild diffuse tenderness across mid abdomen. No peritoneal signs. No palpable organomegaly or masses. Extremities: Normal skin color and turgor. No cyanosis, rash, ulceration, clubbing, or edema. Radial and pedal pulses are 2/4 bilaterally. Neurological: No focal deficits. Strength and sensation are grossly intact. - Labs CBC & Chem 7: 12/20/16 06:34 12/24/16 07:11 Labs: Abnormal Lab Results - Last 24 Hours (Table) 12/23/16 12/23/16 12/24/16 Range/Units 11:10 17:21 05:39 Chloride 109 H (98-107) mmol/L Carbon Dioxide (22-30) mmol/L Glucose 131 H (74-99) mg/dL POC Glucose (mg/dL) 113 H 133 H (75-99) mg/dL Calcium (8.4-10.2) mg/dL AST 53 H (14-36) U/L ALT 85 H (9-52) U/L Total Protein 6.1 L (6.3-8.2) g/dL Albumin 3.4 L (3.5-5.0) g/dL Triglycerides 184 H (<150) mg/dL 12/24/16 Range/Units 07:11 Chloride 112 H (98-107) mmol/L Carbon Dioxide 18 L (22-30) mmol/L Glucose 150 H (74-99) mg/dL POC Glucose (mg/dL) (75-99) mg/dL Calcium 8.2 L (8.4-10.2) mg/dL AST (14-36) U/L ALT (9-52) U/L Total Protein (6.3-8.2) g/dL Albumin (3.5-5.0) g/dL Triglycerides (<150) mg/dL Assessment and Plan Plan: 1. Abdominal pain nausea vomiting and diarrhea prior to admission. Suspect ileus. Status post exploratory laparotomy 1-1/2 weeks ago with lysis of adhesions. No evidence to suggest Crohn's disease at this time. 2. History of abdominal adhesions. Recommendations: 1. we'll defer to surgical service for additional instructions and management. Continue with NG tube decompression. Recommend small bowel series once patient is passing flatus and bowel movements. Continue TPN for nutrition support. We' ll follow as needed. Return to GI office in 2 weeks for reevaluation. Assessment and plan a care discussed with Dr. Araiza.
[2016-12-24] MEDS ORDERED: POTASSIUM CHLORIDE 20 MEQ in WATER FOR INJECTION 1 100ML.BAG IVPB ONE (11:00)
[2016-12-24] MEDS: PHENYTOIN SODIUM IVPB SCH ×2 (11:12→22:02)
[2016-12-24] MEDS: SODIUM CHLORIDE 0.9% IVPB SCH ×2 (11:12→22:02)
[2016-12-24] MEDS ORDERED: POTASSIUM CHLORIDE 20 MEQ, LIDOCAINE 2% INJ 20 MG in SODIUM CHLORIDE 0.9% 100 ML IVPB ONE (11:30)
[2016-12-24 11:45] LABS: Glucose,Whole Blood 121 mg/dL (75-99)
--- NOTE | 2016-12-24 12:24 | P.PN ---
Subjective 46-year-old female being seen with Dr. Finley surgical service. Patient is sitting up in bed. Patient states that there is been less abdominal pain. Patient additionally reports that she's passing gas but has had no stool. Patient was given a enema yesterday with no results. Patient has a nasal gastric tube in place with TPN for nutritional support. GI service recommendations noted and they are recommending small bowel series once patient is passing flatus and having bowel movements. For now continue with TPN. And they will follow as needed. Outpatient follow-up with GI service in 2 weeks postop December 14 2016 exploratory laparotomy with lysis of adhesions with severe adhesive band disease takedown of internal hernia involving the proximal jejunum. Patient was able to be discharged on December 15 did return on December 19. Patient stated that she did go home was doing well when she developed a sudden onset of severe nausea abdominal pain and diarrhea. Patient has a long history of chronic probably due to bowel obstructions in the past of nausea. Patient states he gets lightheaded with nausea. Additionally the patient has a MediPort in place due to poor IV access in the past subsequent the patient was admitted to the services of the attending Objective - Vital Signs Vital signs: Vital Signs Temp 97.7 F 12/24/16 07:29 Pulse 85 12/24/16 07:29 Resp 16 12/24/16 07:29 BP 115/74 12/24/16 07:29 Pulse Ox 96 12/24/16 07:29 Intake & Output 12/23/16 12/24/16 12/24/16 18:59 06:59 18:59 Intake Total 800 Output Total 400 Balance -400 800 Weight 88.451 kg 83 kg Intake: Intake, IV Titration 800 Amount Mvi, Adult No.4 with Vit 240 K 10 ml Trace (Conc-1Ml/ Dose) 1 ml In Amino Acid 5%-D25w+Lytes*E* 1,000 ml @ 30 mls/hr IV .Q24H [facility] Rx#:[id number] Sodium Chloride 0.9% 1, 560 000 ml @ 70 mls/hr IV . [id number] [facility] Rx#:[id number] Output: Gastric Drainage 400 Other: Voiding Method Toilet Toilet # Voids 2 1 - Exam Physical exam 46 -year-old female resting in bed appears in no acute distress talkative oriented 3 Lungs essentially clear adequate air movement no shortness of breath no cough heart S1-S2 audible and regular Abdomen surgical dressing dry abdominal binder in place diffuse tenderness left lower quadrant Eber-Arita drain left lower quadrant scant amount of serous drainage in the bulb passing gas no stool nasal gastric tube in place TPN in progress urinating no difficulty Extremities no edema noted - Labs CBC & Chem 7: 12/20/16 06:34 12/24/16 07:11 Labs: Abnormal Lab Results - Last 24 Hours (Table) 12/23/16 12/24/16 12/24/16 Range/Units 17:21 05:39 07:11 Chloride 112 H (98-107) mmol/L Carbon Dioxide 18 L (22-30) mmol/L Glucose 150 H (74-99) mg/dL POC Glucose (mg/dL) 113 H 133 H (75-99) mg/dL Calcium 8.2 L (8.4-10.2) mg/dL 12/24/16 Range/Units 11:41 Chloride (98-107) mmol/L Carbon Dioxide (22-30) mmol/L Glucose (74-99) mg/dL POC Glucose (mg/dL) 121 H (75-99) mg/dL Calcium (8.4-10.2) mg/dL Assessment and Plan Plan: Impression Present on admission nausea vomiting frequent stooling negative stool for C. diff possible due to ileus History of chronic constipation History of prior bowel obstructions Status post December 13 exploratory laparotomy with lysis of adhesions severe internal hernia involving the proximal jejunum Present on admission left lower quadrant pain unclear etiology History of a seizure disorder Chronic nausea sensation Present on admission hypokalemia. corrected Plan Electrolytes to be monitored closely keep in the therapeutic range IV fluid for hydration Pain control Resume home meds as appropriate Reglan 10 IV push every 6 hours scheduled Increase activity DVT and GI prophylaxis Further recommendations pending will follow The above dictated assessment and findings were discussed with Dr. Manolo Finley covering for dr garrett Impression and the plan of care have been dictated as directed. Zenobia Zapata nurse practitioner acting as a scribe for Dr. Ursula Beavers covering for dr garrett
[2016-12-24] MEDS ORDERED: IODIXANOL 320 MG/ML 100 ML IV ONE (16:09)
[2016-12-24] MEDS ORDERED: IOHEXOL 350 MG/ML 50ML BOTTLE INJ ONE (16:09)
[2016-12-24] MEDS ORDERED: LIDOCAINE 2% INJ 20 MG/ML SQ ONE (17:03)
--- NOTE | 2016-12-24 17:26 | P.PN ---
Progress Note - Text I was notified that the nurse was having difficulty accessing the Mediport site. The patient had no adequate IV access. A portogram was obtained. The portogram revealed that there was extravasation from the catheter felt to be between the area of the clavicle and the first rib. The case was reviewed with Dr. Ramsey from vascular surgery there was concern as to the integrity of the catheter. I discussed this with the patient. The patient had a PICC line placed via radiology. Additionally the patient is going to have the Mediport port removed by vascular surgery in the vascular lab. This is recommended so that fluoroscopic evaluation can be performed while the catheter is removed secondary to questionable integrity of the catheter. This was discussed and explained to the patient's as well.
[2016-12-24 17:44] LABS: Glucose,Whole Blood 101 mg/dL (75-99)
[2016-12-24] MEDS: 1: MVI, ADULT NO.4 WITH VIT K 10 ML, TRACE (CONC-1ML/DOSE) 1 ML in AMINO ACID 5%-D25W+LY IV SCH ×3 (19:26)
[2016-12-24] MEDS: FAT EMULSION 20% 250 ML IV SCH (19:26)
[2016-12-24 23:48] LABS: Glucose,Whole Blood 133 mg/dL (75-99)
[2016-12-25] MEDS: INSULIN LISPRO (humaLOG) 300 UNIT/3 ML VIAL SQ SCH ×4 (00:41→19:24)
[2016-12-25] MEDS: METOCLOPRAMIDE 5 MG/ML 2 ML VIAL IVP SCH ×4 (00:41→20:45)
[2016-12-25] MEDS: TOPIRAMATE 100 MG TAB PO SCH ×3 (00:41→17:48)
[2016-12-25 05:23] LABS: Glucose,Whole Blood 132 mg/dL (75-99)
[2016-12-25] MEDS: ONDANSETRON 4 MG/2 ML VIAL IVP SCH ×3 (05:38→17:48)
[2016-12-25 08:39] LABS: Basophils # (A) 0.1 k/uL (0-0.2); Basophils % (A) 1 %; CH 31.4; CHCM 36.1; Eosinophils # (A) 0.4 k/uL (0-0.7); Eosinophils % (A) 4 %; HCT 39.9 % (34.0-46.0); HDW 2.89; Luc # (Auto) 0.11; Luc % (Auto) 1; Lymphocytes # (A) 1.2 k/uL (1.0-4.8); Lymphocytes % (A) 14 %; MCH 32.9 pg (25.0-35.0); MCHC 37.6 g/dL (31.0-37.0); MCV 87.4 fL (80.0-100.0); Mean Platelet Volume 7.2; Monocytes # (A) 0.8 k/uL (0-1.0); Monocytes % (A) 9 %; Neutrophils # (A) 6.1 k/uL (1.3-7.7); Neutrophils % (A) 71 %; RBC 4.57 m/uL (3.80-5.40); RDW 12.6 % (11.5-15.5); WBC 8.6 k/uL (3.8-10.6); WBC (Perox) 8.38
[2016-12-25] MEDS: GABAPENTIN 400 MG CAP PO SCH ×4 (08:58→20:48)
[2016-12-25] MEDS: ACETAMINOPHEN TAB 325 MG TAB PO PRN ×2 (09:04→17:54)
[2016-12-25] MEDS: LORazepam 2 MG/ML SYRINGE IV SCH ×2 (09:06→20:44)
[2016-12-25] MEDS: PANTOPRAZOLE 40 MG/10 ML VIAL IVP SCH (09:06)
[2016-12-25] MEDS: ENOXAPARIN 40 MG/0.4 ML SYRINGE SQ SCH (09:07)
[2016-12-25 09:39] LABS: Anion Gap 11 mmol/L; Calcium 9.2 mg/dL (8.4-10.2); Carbon Dioxide 20 mmol/L (22-30); Chloride 111 mmol/L (98-107); Glucose 125 mg/dL (74-99); Non-African American GFR(MDRD) >60 (>60 ml/min/1.73 sqM); Sodium 142 mmol/L (137-145); Total Bilirubin 0.7 mg/dL (0.2-1.3); Total Protein 7.1 g/dL (6.3-8.2)
[2016-12-25 09:42] LABS: ALT 92 U/L (9-52); AST 71 U/L (14-36); Blood Urea Nitrogen 10 mg/dL (7-17); Magnesium 2.3 mg/dL (1.6-2.3); Phosphorous 3.6 mg/dL (2.5-4.5); Potassium 4.3 mmol/L (3.5-5.1)
[2016-12-25 09:43] LABS: Alkaline Phosphatase 100 U/L (38-126)
[2016-12-25] MEDS: LACOSAMIDE IV 150 MG in SODIUM CHLORIDE 0.9% 50 ML IVPB SCH ×2 (09:54→20:44)
--- NOTE | 2016-12-25 10:12 | P.GSCN ---
History of Present Illness Consult date: 12/25/16 Reason for Consult: right subclavian mediport with evidence of catheter fracture (pinched off) on portogram History of present illness: 46 y/o woman with difficult IV access. Has a history of multiple abdominal surgical procedures with at least 3 episodes of bowel obstruction. Has a history of left subclavian mediport and right subclavian mediport x 2. Recently underwent exploratory laparotomy, lysis of adhesions, takedown of internal hernia on 12/13/2016. Readmitted for ileus. Complained of pain at right mediport site and underwent portogram that demonstrated extravasation of contrast outside catheter at junction of clavicle/rib. No fevers, chills, palpitations, dyspnea. Currently on TPN via left basilic PICC line. Describes a history of right IJ central line in past, no long-term catheters. No history of femoral access in the past. CMHx, PSHx, Habits; reviewed PE: HEENT: no bruits, no JVD, mediport site appears intact Lungs; clear bilaterally ABD; scaphoid, soft, dressings appear intact EXTR; femoral pulses are palpable bilaterally, popliteal and pedal pulses are palpable, bilaterally; no pedal edema impression/plan 1. right subclavain mediport with suspected "pinched off" syndrome that is currently asymptomatic. Mediport not able to be used/injected at this time. Will require removal of mediport under fluorscopy with standby instrumentation to snare any catheter segments that remain intravascular. Will need to discuss with the clinical lab technologist supervisor [employer] if this type of case can be supported by clinical lab technologist at [facility]. Staff available on 12/24/2016 were not familiar with this type of procedure and could not advise. clinical lab technologist supervisor [employer] is is available on 12/27/2016. Following. Past Medical History Past Medical History: Asthma, GERD/Reflux, Hypertension, Mitral Valve Prolapse ( MVP), Osteoarthritis (OA), Seizure Disorder, Syncope Additional Past Medical History / Comment(s): migraines and chronic nausea, DDD , 3 herniated disc, no longer needs BP med, last seizure 2015. STATES HAS AURA' S DAILY, HAS MEDIPORT. VERY HARD IV START History of Any Multi-Drug Resistant Organisms: None Reported Past Surgical History: Appendectomy, Cholecystectomy, Hysterectomy, Orthopedic Surgery, Tubal Ligation Additional Past Surgical History / Comment(s): surg. for small bowel obstruction , right internal jugular mediport placement - November 2014, HAS HAD 3 MEDIPORTS repair fx. left foot, surg. for kidney stones LAPROSCOPYN FOR 01/2016 lysis of adhesions Past Anesthesia/Blood Transfusion Reactions: Previous Problems w/ Anesthesia, Motion Sickness, Postoperative Nausea & Vomiting (PONV) Additional Past Anesthesia/Blood Transfusion Reaction / Comm: pt states she has post anesthesia seizures sometimes, severe PONV Past Psychological History: Anxiety Smoking Status: Never smoker Past Alcohol Use History: None Reported Past Drug Use History: None Reported - Past Family History Mother Family Medical History: Cancer Additional Family Medical History / Comment(s): leukemia Father Family Medical History: Cancer Medications and Allergies Home Medications Medication Instructions Recorded Confirmed Type Albuterol Inhaler [Ventolin Hfa 1 - 2 puff INHALATION RT-QID PRN 11/08/14 History Inhaler] LORazepam [Ativan] 1 mg PO BID 11/08/14 12/19/16 History Ondansetron [Zofran] 4 mg PO Q12HR PRN 11/08/14 12/19/16 History Ranitidine HCl [Zantac] 150 mg PO BID 11/08/14 12/19/16 History Gabapentin [Neurontin] 800 mg PO QID 04/17/15 12/19/16 History Polyethylene Glycol 3350 [Miralax] 17 gm PO DAILY PRN 04/17/15 12/19/16 History Topiramate [Topamax] 300 mg PO Q8HR 04/17/15 12/19/16 History Docusate [Colace] 100 mg PO DAILY 01/08/16 12/19/16 History Lacosamide [Vimpat] 150 mg PO BID 01/08/16 12/19/16 History Lactulose [Constulose] 10 gm PO DAILY PRN 01/08/16 12/19/16 History Cholecalciferol [Vitamin D3] 1,000 unit PO DAILY 10/08/16 12/19/16 History Phenytoin Sodium Extended 300 mg PO BID 12/08/16 12/19/16 History [Dilantin] Allergies Allergy/AdvReac Type Severity Reaction Status Date / Time hydromorphone HCl Allergy Severe Chest Pain Verified 12/19/16 07:59 [From Dilaudid] morphine Allergy Severe Rapid Verified 12/19/16 07:59 Heart Rate Penicillins Allergy Severe Rapid Verified 12/19/16 07:59 Heart Rate prochlorperazine edisylate Allergy Severe Rapid Verified 12/19/16 07:59 [From Compazine] Heart Rate prochlorperazine maleate Allergy Severe Rapid Verified 12/19/16 07:59 [From Compazine] Heart Rate Surgical - Exam Vital Signs Temp Pulse Resp BP Pulse Ox 98.6 F 115 H 20 144/81 98 12/19/16 05:21 12/19/16 05:21 12/19/16 05:21 12/19/16 05:21 12/19/16 05:21 Results - Labs 12/25/16 07:48 12/25/16 07:48 Abnormal Lab Results - Last 24 Hours (Table) 12/24/16 12/24/16 12/24/16 Range/Units 11:41 17:28 23:47 MCHC (31.0-37.0) g/dL Chloride (98-107) mmol/L Carbon Dioxide (22-30) mmol/L Glucose (74-99) mg/dL POC Glucose (mg/dL) 121 H 101 H 133 H (75-99) mg/dL AST (14-36) U/L ALT (9-52) U/L 12/25/16 12/25/16 12/25/16 Range/Units 05:22 07:48 07:48 MCHC 37.6 H (31.0-37.0) g/dL Chloride 111 H (98-107) mmol/L Carbon Dioxide 20 L (22-30) mmol/L Glucose 125 H (74-99) mg/dL POC Glucose (mg/dL) 132 H (75-99) mg/dL AST 71 H (14-36) U/L ALT 92 H (9-52) U/L Diabetes panel 12/25/16 Range/Units 07:48 Sodium 142 (137-145) mmol/L Potassium 4.3 (3.5-5.1) mmol/L Chloride 111 H (98-107) mmol/L Carbon Dioxide 20 L (22-30) mmol/L BUN 10 (7-17) mg/dL Creatinine 0.83 (0.52-1.04) mg/dL Glucose 125 H (74-99) mg/dL Calcium 9.2 (8.4-10.2) mg/dL AST 71 H (14-36) U/L ALT 92 H (9-52) U/L Alkaline Phosphatase 100 (38-126) U/L Total Protein 7.1 (6.3-8.2) g/dL Albumin 3.8 (3.5-5.0) g/dL Calcium panel 12/25/16 Range/Units 07:48 Calcium 9.2 (8.4-10.2) mg/dL Phosphorus 3.6 (2.5-4.5) mg/dL Albumin 3.8 (3.5-5.0) g/dL Pituitary panel 12/25/16 Range/Units 07:48 Sodium 142 (137-145) mmol/L Potassium 4.3 (3.5-5.1) mmol/L Chloride 111 H (98-107) mmol/L Carbon Dioxide 20 L (22-30) mmol/L BUN 10 (7-17) mg/dL Creatinine 0.83 (0.52-1.04) mg/dL Glucose 125 H (74-99) mg/dL Calcium 9.2 (8.4-10.2) mg/dL Adrenal panel 12/25/16 Range/Units 07:48 Sodium 142 (137-145) mmol/L Potassium 4.3 (3.5-5.1) mmol/L Chloride 111 H (98-107) mmol/L Carbon Dioxide 20 L (22-30) mmol/L BUN 10 (7-17) mg/dL Creatinine 0.83 (0.52-1.04) mg/dL Glucose 125 H (74-99) mg/dL Calcium 9.2 (8.4-10.2) mg/dL Total Bilirubin 0.7 (0.2-1.3) mg/dL AST 71 H (14-36) U/L ALT 92 H (9-52) U/L Alkaline Phosphatase 100 (38-126) U/L Total Protein 7.1 (6.3-8.2) g/dL Albumin 3.8 (3.5-5.0) g/dL
--- NOTE | 2016-12-25 10:14 | P.PN ---
Subjective Patient is a 46-year-old white female who is status post exploratory laparotomy December 14 with extensive lysis of adhesions and repair of internal hernia. The patient initially did well and was discharged but returned on December 19 with symptoms suggestive of ileus. She had previously had a Mediport placed and this is being used for IV access. The patient began complaining of pain at that site and the patient subsequently underwent a portogram which revealed a leak at the area of the clavicle and the first rib. A PICC line was placed for IV access. Patient was seen in consultation by vascular surgery and the Mediport is going to be removed under fluoroscopic evaluation. The patient states that last night she began having bowel activity. She did have several small bowel movements and is passing flatus. The NG output is 600. Objective - Vital Signs Vital signs: Vital Signs Temp 98.3 F 12/25/16 02:30 Pulse 85 12/25/16 02:30 Resp 16 12/25/16 02:30 BP 121/78 12/25/16 02:30 Pulse Ox 96 12/25/16 02:30 Intake & Output 12/24/16 12/25/16 12/25/16 18:59 06:59 18:59 Output Total 600 Balance -600 Weight 83 kg 83 kg Output: Gastric Drainage 600 Other: Voiding Method Toilet Toilet # Voids 2 3 - Constitutional General appearance: Present: obese - Respiratory Respiratory: bilateral: CTA - Cardiovascular Rhythm: regular Heart sounds: normal: S1, S2 - Gastrointestinal Gastrointestinal Comment(s): Incision clean and dry General gastrointestinal: Present: decreased bowel sounds - Psychiatric Psychiatric: Present: A&O x's 3, appropriate affect, intact judgment & insight - Labs CBC & Chem 7: 12/25/16 07:48 12/25/16 07:48 Labs: Abnormal Lab Results - Last 24 Hours (Table) 12/24/16 12/24/16 12/24/16 Range/Units 11:41 17:28 23:47 MCHC (31.0-37.0) g/dL Chloride (98-107) mmol/L Carbon Dioxide (22-30) mmol/L Glucose (74-99) mg/dL POC Glucose (mg/dL) 121 H 101 H 133 H (75-99) mg/dL AST (14-36) U/L ALT (9-52) U/L 12/25/16 12/25/16 12/25/16 Range/Units 05:22 07:48 07:48 MCHC 37.6 H (31.0-37.0) g/dL Chloride 111 H (98-107) mmol/L Carbon Dioxide 20 L (22-30) mmol/L Glucose 125 H (74-99) mg/dL POC Glucose (mg/dL) 132 H (75-99) mg/dL AST 71 H (14-36) U/L ALT 92 H (9-52) U/L Assessment and Plan Plan: Impression/plan: 1. Patient is 46-year-old white female with resolving ileus 2. Difficulty with IV access PICC line in place 3. Defect in the Mediport to be removed under fluoroscopic guidance by vascular surgery Plan: 1. Clamp NG tube is patient is passing flatus 2. Continue present therapy 3. Mediport removal as per vascular surgery
[2016-12-25] MEDS: PHENYTOIN SODIUM IVPB SCH ×2 (10:38→20:46)
[2016-12-25] MEDS: SODIUM CHLORIDE 0.9% IVPB SCH ×2 (10:38→20:46)
[2016-12-25 11:55] LABS: Glucose,Whole Blood 117 mg/dL (75-99)
[2016-12-25 12:04] LABS: RBC Morphology Normal
[2016-12-25] MEDS: SODIUM CHLORIDE 0.9% 1,000 ML IV SCH (14:38)
[2016-12-25] MEDS: SCOPOLAMINE 1.5MG/72HR PATCH TRANSDERM SCH (16:01)
[2016-12-25 17:10] LABS: Glucose,Whole Blood 98 mg/dL (75-99)
[2016-12-25] MEDS: 1: MVI, ADULT NO.4 WITH VIT K 10 ML, TRACE (CONC-1ML/DOSE) 1 ML in AMINO ACID 5%-D25W+LY IV SCH ×3 (17:57)
[2016-12-26 00:05] LABS: Glucose,Whole Blood 126 mg/dL (75-99)
[2016-12-26] MEDS: INSULIN LISPRO (humaLOG) 300 UNIT/3 ML VIAL SQ SCH ×4 (00:21→18:19)
[2016-12-26] MEDS: ONDANSETRON 4 MG/2 ML VIAL IVP SCH ×4 (00:27→18:57)
[2016-12-26] MEDS: TOPIRAMATE 100 MG TAB PO SCH ×3 (00:28→16:16)
[2016-12-26] MEDS: METOCLOPRAMIDE 5 MG/ML 2 ML VIAL IVP SCH ×4 (04:00→21:35)
[2016-12-26 05:51] LABS: Glucose,Whole Blood 135 mg/dL (75-99)
--- NOTE | 2016-12-26 07:49 | P.PN ---
Subjective Patient is a 46-year-old white female who is status post exploratory laparotomy December 14 with extensive lysis of adhesions and repair of internal hernia. The patient initially did well and was discharged but returned on December 19 with symptoms suggestive of ileus. She had previously had a Mediport placed and this is being used for IV access. The patient began complaining of pain at that site and the patient subsequently underwent a portogram which revealed a leak at the area of the clavicle and the first rib. A PICC line was placed for IV access. Patient was seen in consultation by vascular surgery and the Mediport is going to be removed under fluoroscopic evaluation. The patient has had several small bowel movements and is passing flatus. Attempt to clamp the NG tube yesterday was unsuccessful the patient having increased nausea and the tube was necessary to be hooked to suction again. Patient's NG output was approximately 750 mL over the last shift. Objective - Vital Signs Vital signs: Vital Signs Temp 97.2 F L 12/26/16 00:00 Pulse 90 12/26/16 04:00 Resp 14 12/26/16 04:00 BP 128/84 12/26/16 00:00 Pulse Ox 97 12/26/16 00:00 Intake & Output 12/25/16 12/26/16 12/26/16 18:59 06:59 18:59 Intake Total 1561 1300 Output Total 502 1158 Balance 1059 142 Weight 83 kg Intake: IV 550 500 Lacosamide IV 150 mg In 50 50 Sodium Chloride 0.9% 50 ml @ 100 mls/hr IVPB BID [facility] Rx#:[id number] Phenytoin Sodium Inj 300 10 100 mg In Sodium Chloride 0.9 % 100 ml @ 200 mls/hr IVPB BID [facility] Rx#: [id number] Sodium Chloride 0.9% 1, 490 350 000 ml @ 70 mls/hr IV . [id number] [facility] Rx#:[id number] Intake, IV Titration 1011 800 Amount Fat Emulsion 20% 250 ml @ 480 20.833 mls/hr IV MoWeFr@ 1600 [facility] Rx#:[id number] Mvi, Adult No.4 with Vit 1011 K 10 ml Trace (Conc-1Ml/ Dose) 1 ml In Amino Acid 5%-D25w+Lytes*E* 1,000 ml @ 60 mls/hr IV .BY DURATION [facility] Rx#: [id number] Sodium Chloride 0.9% 1, 320 000 ml @ 70 mls/hr IV . [id number] [facility] Rx#:[id number] Output: Gastric Drainage 500 1150 Urine 4 Stool 2 4 Other: Voiding Method Toilet # Voids 3 3 - Constitutional General appearance: Present: obese - Respiratory Details: Decreased breath sounds at bases - Cardiovascular Rhythm: regular Heart sounds: normal: S1, S2 - Gastrointestinal Gastrointestinal Comment(s): Incision clean and dry General gastrointestinal: Present: decreased bowel sounds - Psychiatric Psychiatric: Present: A&O x's 3, appropriate affect, intact judgment & insight - Labs CBC & Chem 7: 12/25/16 07:48 12/25/16 07:48 Labs: Abnormal Lab Results - Last 24 Hours (Table) 12/25/16 12/25/16 12/25/16 Range/Units 07:48 07:48 11:41 MCHC 37.6 H (31.0-37.0) g/dL Chloride 111 H (98-107) mmol/L Carbon Dioxide 20 L (22-30) mmol/L Glucose 125 H (74-99) mg/dL POC Glucose (mg/dL) 117 H (75-99) mg/dL AST 71 H (14-36) U/L ALT 92 H (9-52) U/L 12/25/16 12/26/16 Range/Units 23:58 05:44 MCHC (31.0-37.0) g/dL Chloride (98-107) mmol/L Carbon Dioxide (22-30) mmol/L Glucose (74-99) mg/dL POC Glucose (mg/dL) 126 H 135 H (75-99) mg/dL AST (14-36) U/L ALT (9-52) U/L Assessment and Plan Plan: Impression/plan: 1. Patient is 46-year-old white female with resolving ileus 2. Difficulty with IV access PICC line in place 3. Defect in the Mediport to be removed under fluoroscopic guidance by vascular surgery 4. Prolonged ileus 5. History of nausea Plan: 1. Clamp NG tube is patient is passing flatus/ if patient tolerates will remove 2. Continue present therapy 3. Mediport removal as per vascular surgery
[2016-12-26 08:26] LABS: Anion Gap 11 mmol/L; Calcium 9.5 mg/dL (8.4-10.2); Carbon Dioxide 18 mmol/L (22-30); Chloride 116 mmol/L (98-107); Glucose 143 mg/dL (74-99); Non-African American GFR(MDRD) >60 (>60 ml/min/1.73 sqM); Sodium 145 mmol/L (137-145)
[2016-12-26] MEDS: 1: MVI, ADULT NO.4 WITH VIT K 10 ML, TRACE (CONC-1ML/DOSE) 1 ML in AMINO ACID 5%-D25W+LY IV SCH ×6 (08:27→10:14)
[2016-12-26 08:36] LABS: Blood Urea Nitrogen 15 mg/dL (7-17); Magnesium 2.2 mg/dL (1.6-2.3); Phosphorous 4.1 mg/dL (2.5-4.5); Potassium 4.1 mmol/L (3.5-5.1)
[2016-12-26] MEDS: GABAPENTIN 400 MG CAP PO SCH ×4 (08:42→23:40)
[2016-12-26] MEDS ORDERED: BISACODYL 10 MG SUPP RECTAL STA (09:06)
[2016-12-26] MEDS: LACOSAMIDE IV 150 MG in SODIUM CHLORIDE 0.9% 50 ML IVPB SCH (09:16)
[2016-12-26] MEDS: LORazepam 2 MG/ML SYRINGE IV SCH ×2 (09:17→22:38)
[2016-12-26] MEDS: ENOXAPARIN 40 MG/0.4 ML SYRINGE SQ SCH (09:17)
[2016-12-26] MEDS: PANTOPRAZOLE 40 MG/10 ML VIAL IVP SCH (09:17)
[2016-12-26] MEDS: PHENYTOIN SODIUM IVPB SCH ×2 (10:14→22:27)
[2016-12-26] MEDS: SODIUM CHLORIDE 0.9% IVPB SCH ×2 (10:14→22:27)
[2016-12-26 11:39] LABS: Glucose,Whole Blood 138 mg/dL (75-99)
--- NOTE | 2016-12-26 12:36 | IR ---
EXAMINATION TYPE: IR cvc insert >=5 years DATE OF EXAM: 12/24/2016 5:45 PM COMPARISON: NONE CLINICAL HISTORY: Needs intravenous access for total parenteral nutrition PROCEDURE: After informed consent, the skin overlying the upper extremity vein was localized with ultrasound and noted to be compressible and patent. An ultrasound image was obtained and submitted on the patient' s chart. The overlying skin was prepped and draped and Lidocaine was used for local anesthesia. A s kin mary was made with a scalpel. Access was gained to the vein under ultrasound guidance with a 21 gauge needle and a 0.018 inch wire was advanced. Access site was dilated with Peel-Away sheath and c atheter tailored to the appropriate length and advanced such that the distal tip is at the cavoatrial junction. Spot image was obtained verifying placement. Catheter was fixed to the skin with suture and a sterile dressing was placed following hemostasis. Catheter was aspirated and flushed with sali ne. Patient was discharged in stable condition without complication. Maximal barrier technique is ut ilized. Ultrasound image is documented on the chart. Ultrasound used with sterile technique. Fluoro time and fluoroscopic images submitted to document procedure: 15 intraoperative C-arm images d ocument the procedure, 0.3 minutes fluoroscopy time IMPRESSION: STATUS POST ULTRASOUND AND FLUOROSCOPIC GUIDED PICC LINE PLACEMENT, READY FOR USE. THIS PROCEDURE WAS PERFORMED BY THE UNDERSIGNED.
[2016-12-26 18:08] LABS: Glucose,Whole Blood 114 mg/dL (75-99)
[2016-12-26] MEDS: SODIUM CHLORIDE 0.9% 1,000 ML IV SCH (21:55)
[2016-12-27 00:21] LABS: Glucose,Whole Blood 141 mg/dL (75-99)
[2016-12-27] MEDS: LACOSAMIDE IV 150 MG in SODIUM CHLORIDE 0.9% 50 ML IVPB SCH ×3 (00:25→22:38)
[2016-12-27] MEDS: ONDANSETRON 4 MG/2 ML VIAL IVP SCH ×4 (00:27→18:12)
[2016-12-27] MEDS: INSULIN LISPRO (humaLOG) 300 UNIT/3 ML VIAL SQ SCH ×4 (00:31→18:10)
[2016-12-27] MEDS: TOPIRAMATE 100 MG TAB PO SCH ×4 (00:34→18:10)
[2016-12-27] MEDS: 1: MVI, ADULT NO.4 WITH VIT K 10 ML, TRACE (CONC-1ML/DOSE) 1 ML in AMINO ACID 5%-D25W+LY IV SCH ×6 (00:36)
[2016-12-27] MEDS: METOCLOPRAMIDE 5 MG/ML 2 ML VIAL IVP SCH ×4 (04:49→21:58)
[2016-12-27 06:07] LABS: Glucose,Whole Blood 129 mg/dL (75-99)
[2016-12-27 07:39] LABS: Anion Gap 12 mmol/L; Calcium 9.1 mg/dL (8.4-10.2); Carbon Dioxide 17 mmol/L (22-30); Chloride 113 mmol/L (98-107); Glucose 135 mg/dL (74-99); Non-African American GFR(MDRD) >60 (>60 ml/min/1.73 sqM); Sodium 142 mmol/L (137-145)
[2016-12-27 07:43] LABS: Phosphorous 3.8 mg/dL (2.5-4.5); Potassium 3.9 mmol/L (3.5-5.1)
[2016-12-27 07:44] LABS: Blood Urea Nitrogen 15 mg/dL (7-17); Magnesium 2.1 mg/dL (1.6-2.3)
[2016-12-27] MEDS: ENOXAPARIN 40 MG/0.4 ML SYRINGE SQ SCH (08:56)
[2016-12-27] MEDS: GABAPENTIN 400 MG CAP PO SCH ×4 (08:56→21:53)
[2016-12-27] MEDS: PANTOPRAZOLE 40 MG/10 ML VIAL IVP SCH (08:57)
[2016-12-27] MEDS: LORazepam 2 MG/ML SYRINGE IV SCH ×2 (09:10→21:58)
[2016-12-27] MEDS: SODIUM CHLORIDE 0.9% 1,000 ML IV SCH ×2 (09:13→21:58)
[2016-12-27] MEDS: PHENYTOIN SODIUM IVPB SCH ×2 (09:25→21:58)
[2016-12-27] MEDS: SODIUM CHLORIDE 0.9% IVPB SCH ×2 (09:25→21:58)
[2016-12-27 12:10] LABS: Glucose,Whole Blood 144 mg/dL (75-99)
--- NOTE | 2016-12-27 12:38 | P.PN ---
Subjective Patient is a 46-year-old white female who is status post exploratory laparotomy December 14 with extensive lysis of adhesions and repair of internal hernia. The patient initially did well and was discharged but returned on December 19 with symptoms suggestive of ileus. She had previously had a Mediport placed and this is being used for IV access. The patient began complaining of pain at that site and the patient subsequently underwent a portogram which revealed a leak at the area of the clavicle and the first rib. A PICC line was placed for IV access. Patient was seen in consultation by vascular surgery and the Mediport is going to be removed under fluoroscopic evaluation. The patient has had several small bowel movements and is passing flatus. patient NG tube was clamped and she did not tolerate this well. We are going to attempt another trial today. I had a discussion with Dr. Filemon Phan regarding the Port-A-Cath removal and he states this is going to be done via the groin with fluoroscopic assistance. There is concern that the catheter is nearly transected. Objective - Vital Signs Vital signs: Vital Signs Temp 98.4 F 12/27/16 00:15 Pulse 90 12/27/16 00:15 Resp 16 12/27/16 00:15 BP 133/84 12/27/16 00:15 Pulse Ox 98 12/27/16 00:15 Intake & Output 12/26/16 12/27/16 12/27/16 18:59 06:59 18:59 Intake Total 862 Output Total 300 1550 1 Balance -300 -688 -1 Weight 83 kg 83 kg Intake: Intake, IV Titration 862 Amount Mvi, Adult No.4 with Vit 862 K 10 ml Trace (Conc-1Ml/ Dose) 1 ml In Amino Acid 5%-D25w+Lytes*E* 1,000 ml @ 60 mls/hr IV .BY DURATION FIOR Rx#: [id number] Output: Gastric Drainage 300 1550 Stool 1 Other: Voiding Method Toilet # Voids 3 1 - Constitutional General appearance: Present: obese - Respiratory Respiratory: bilateral: CTA - Cardiovascular Rhythm: regular Heart sounds: normal: S1, S2 - Gastrointestinal Gastrointestinal Comment(s): Incision clean and dry General gastrointestinal: Present: normal bowel sounds, soft - Psychiatric Psychiatric: Present: A&O x's 3, appropriate affect, intact judgment & insight - Labs CBC & Chem 7: 12/25/16 07:48 12/27/16 06:40 Labs: Abnormal Lab Results - Last 24 Hours (Table) 12/26/16 12/27/16 12/27/16 Range/Units 18:07 00:19 05:40 Chloride (98-107) mmol/L Carbon Dioxide (22-30) mmol/L Glucose (74-99) mg/dL POC Glucose (mg/dL) 114 H 141 H 129 H (75-99) mg/dL 12/27/16 12/27/16 Range/Units 06:40 11:37 Chloride 113 H (98-107) mmol/L Carbon Dioxide 17 L (22-30) mmol/L Glucose 135 H (74-99) mg/dL POC Glucose (mg/dL) 144 H (75-99) mg/dL Assessment and Plan Plan: Impression/plan: 1. Patient is 46-year-old white female with resolving ileus 2. Difficulty with IV access PICC line in place 3. Defect in the Mediport to be removed under fluoroscopic guidance by vascular surgery 4. Prolonged ileus 5. History of nausea Plan: 1. Clamp NG tube is patient is passing flatus/ if patient tolerates will remove 2. Continue present therapy 3. Mediport removal as per vascular surgery
--- NOTE | 2016-12-27 15:54 | XR ---
EXAMINATION TYPE: XR abdomen 2V DATE OF EXAM: 12/27/2016 3:43 PM COMPARISON: 12/23/2016 HISTORY: Nausea and vomiting TECHNIQUE: One view abdominal series FINDINGS: NG tube seen. Central venous catheters overlying the right hilum. Lung bases clear. Surgical clips right upper quadrant. No dilated bowel loops are seen. Arthropathy of the hip joints. IMPRESSION: 1. Nonspecific abdomen. There are no dilated bowel loops identified on today's exam. There is reducti on in amount of air-fluid level and bowel loops relative to the previous exam. Paucity of bowel gas n oted which also could be seen with partial obstruction.
[2016-12-27 17:16] LABS: Glucose,Whole Blood 131 mg/dL (75-99)
--- NOTE | 2016-12-27 17:19 | P.PN ---
Progress Note - Text Events noted. Patient still with nausea and vomiting; resolving ileus Risks and benefits of mediport removal discussed including infection, bleeding, wound healing complications, vessel wall injury, inability to retrieve catheter , thrombosis of vessels, cardiac arrhythmias. Patient understands risks and benefits of procedure and is scheduled for 12/28/2016 at 1300.
[2016-12-27] MEDS: FAT EMULSION 20% 250 ML IV SCH (18:07)
[2016-12-27] MEDS: 1: MVI, ADULT NO.4 WITH VIT K 10 ML, TRACE (CONC-1ML/DOSE) 1 ML, SODIUM ACETATE 20 MEQ i IV SCH ×4 (18:08)
[2016-12-27 19:57] LABS: Glucose,Whole Blood 129 mg/dL (75-99)
[2016-12-28] MEDS: TOPIRAMATE 100 MG TAB PO SCH ×3 (00:08→16:02)
[2016-12-28] MEDS: ONDANSETRON 4 MG/2 ML VIAL IVP SCH ×5 (00:14→23:53)
[2016-12-28 00:20] LABS: Glucose,Whole Blood 125 mg/dL (75-99)
[2016-12-28] MEDS: INSULIN LISPRO (humaLOG) 300 UNIT/3 ML VIAL SQ SCH ×4 (00:21→18:02)
[2016-12-28] MEDS: METOCLOPRAMIDE 5 MG/ML 2 ML VIAL IVP SCH ×4 (03:43→21:33)
[2016-12-28 06:33] LABS: Glucose,Whole Blood 132 mg/dL (75-99)
[2016-12-28] MEDS: GABAPENTIN 400 MG CAP PO SCH ×3 (08:00→20:50)
[2016-12-28 08:12] LABS: Anion Gap 11 mmol/L; Blood Urea Nitrogen 16 mg/dL (7-17); Calcium 9.3 mg/dL (8.4-10.2); Carbon Dioxide 21 mmol/L (22-30); Chloride 111 mmol/L (98-107); Glucose 140 mg/dL (74-99); Magnesium 2.1 mg/dL (1.6-2.3); Non-African American GFR(MDRD) >60 (>60 ml/min/1.73 sqM); Phosphorous 3.9 mg/dL (2.5-4.5); Potassium 3.7 mmol/L (3.5-5.1); Sodium 143 mmol/L (137-145)
[2016-12-28] MEDS: ENOXAPARIN 40 MG/0.4 ML SYRINGE SQ SCH (08:53)
[2016-12-28] MEDS: LORazepam 2 MG/ML SYRINGE IV SCH ×2 (09:00→21:33)
[2016-12-28] MEDS: PANTOPRAZOLE 40 MG/10 ML VIAL IVP SCH (09:00)
[2016-12-28] MEDS: SODIUM CHLORIDE 0.9% IVPB SCH ×2 (09:18→20:10)
[2016-12-28] MEDS: PHENYTOIN SODIUM IVPB SCH ×2 (09:18→20:10)
--- NOTE | 2016-12-28 09:19 | P.PN ---
Subjective Patient is a 46-year-old white female who is status post exploratory laparotomy December 14 with extensive lysis of adhesions and repair of internal hernia. The patient initially did well and was discharged but returned on December 19 with symptoms suggestive of ileus. She had previously had a Mediport placed and this is being used for IV access. The patient began complaining of pain at that site and the patient subsequently underwent a portogram which revealed a leak at the area of the clavicle and the first rib. A PICC line was placed for IV access. Patient was seen in consultation by vascular surgery and the Mediport is going to be removed under fluoroscopic evaluation. The patient has had several small bowel movements and is passing flatus. patient DC'd her NG tube yesterday and is tolerating this being out. I had a discussion with Dr. Filemon Phan regarding the Port-A-Cath removal and he states this is going to be done via the groin with fluoroscopic assistance. There is concern that the catheter is nearly transected. Objective - Vital Signs Vital signs: Vital Signs Temp 97.2 F L 12/28/16 08:08 Pulse 94 12/28/16 08:08 Resp 16 12/28/16 08:08 BP 132/88 12/28/16 08:08 Pulse Ox 96 12/28/16 08:08 Intake & Output 12/27/16 12/28/16 12/28/16 18:59 06:59 18:59 Output Total 2 450 Balance -2 -450 Weight 83 kg 81.5 kg Output: Gastric Drainage 100 Stool 2 Oral Regurgitation 350 Other: Voiding Method Toilet Toilet # Voids 2 1 - Constitutional General appearance: Present: obese - Respiratory Respiratory: bilateral: CTA - Cardiovascular Rhythm: regular Heart sounds: normal: S1, S2 - Gastrointestinal Gastrointestinal Comment(s): incision clean and dry General gastrointestinal: Present: decreased bowel sounds, soft - Psychiatric Psychiatric: Present: A&O x's 3, appropriate affect, intact judgment & insight - Labs CBC & Chem 7: 12/25/16 07:48 12/28/16 06:33 Labs: Abnormal Lab Results - Last 24 Hours (Table) 12/27/16 12/27/16 12/27/16 Range/Units 11:37 16:44 19:56 Chloride (98-107) mmol/L Carbon Dioxide (22-30) mmol/L Glucose (74-99) mg/dL POC Glucose (mg/dL) 144 H 131 H 129 H (75-99) mg/dL 12/28/16 12/28/16 12/28/16 Range/Units 00:11 06:11 06:33 Chloride 111 H (98-107) mmol/L Carbon Dioxide 21 L (22-30) mmol/L Glucose 140 H (74-99) mg/dL POC Glucose (mg/dL) 125 H 132 H (75-99) mg/dL Assessment and Plan Plan: Impression/plan: 1. Patient is 46-year-old white female with resolving ileus 2. Difficulty with IV access PICC line in place 3. Defect in the Mediport to be removed under fluoroscopic guidance by vascular surgery 4. Prolonged ileus 5. History of nausea Plan: 1. tolerating NG tube removed consider clear liquids later today after removal of Mediport 2. Mediport removal as per vascular surgery
[2016-12-28] MEDS: LACOSAMIDE IV 150 MG in SODIUM CHLORIDE 0.9% 50 ML IVPB SCH ×2 (10:06→21:33)
[2016-12-28] MEDS: 1: MVI, ADULT NO.4 WITH VIT K 10 ML, TRACE (CONC-1ML/DOSE) 1 ML, SODIUM ACETATE 20 MEQ i IV SCH ×8 (10:11→23:58)
[2016-12-28 11:49] LABS: Glucose,Whole Blood 131 mg/dL (75-99)
[2016-12-28] MEDS ORDERED: fentaNYL (PF) 50 MCG/ML 2 ML AMP IV ONE (13:10)
[2016-12-28] MEDS ORDERED: LIDOCAINE 2% INJ 20 MG/ML SQ ONE (13:12)
[2016-12-28] MEDS ORDERED: MIDAZOLAM 2 MG/2 ML VIAL IV ONE (13:12)
--- NOTE | 2016-12-28 13:55 | P.PCN ---
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 An incision was made along the prior incision and carried through skin and SQ to the catheter. The catheter was isolated and transected. An 014" wire was threaded through the catheter and the entire catheter was removed under fluoroscopic guidance. The capsule surrounding the port was incised and the mediport was removed in its entirety. The incision was closed in layers with 4-0 vicryl for subcutaneous tissues and 4-o monocryl to skin. Dermabond to skin. Patient tolerated the procedure without difficulty. She was returned to her room in satisfactory condition.
--- NOTE | 2016-12-28 14:03 | IR ---
EXAMINATION TYPE: IR foreign body retrival perc DATE OF EXAM: 12/28/2016 1:55 PM COMPARISON: NONE HISTORY: Peripheral vascular occlusive disease. Fluoroscopy was provided EXAMINATION TYPE: IR foreign body retrival perc DATE OF EXAM: 12/28/2016 1:55 PM COMPARISON: NONE HISTORY: Peripheral vascular occlusive disease. Fluoroscopy was applied to the referring clinician. See dictated report from cardiology to the referring clinician. See dictated report from surgery.
[2016-12-28] MEDS: SODIUM CHLORIDE 0.9% 1,000 ML IV SCH (15:32)
[2016-12-28] MEDS: SCOPOLAMINE 1.5MG/72HR PATCH TRANSDERM SCH (16:01)
[2016-12-28 17:09] LABS: Glucose,Whole Blood 112 mg/dL (75-99)
[2016-12-28] MEDS ORDERED: DEXAMETHASONE SOD PHOSPHATE 10 MG/ML 1 ML VIAL IV STA (18:38)
--- NOTE | 2016-12-28 18:49 | P.PN ---
Progress Note - Text Patient seen and evaluated. Records reviewed. Family is at bedside who has updated me on her care over the last several days as I have been out of town. [facility] team has been covering in my absence. Patient reports severe nausea and vomiting following her procedure including Mediport removal secondary to fractured tubing. She reports hunger. She is requesting liquids. She is passing flatus. She is having bowel movements. Abdominal x-rays consistent with resolution of ileus. Will start Decadron and continued schedule antiemetics. Will wean TPN. Start liquid diet. Possible disposition and 24 hours.
[2016-12-28 23:56] LABS: Glucose,Whole Blood 148 mg/dL (75-99)
[2016-12-29] MEDS: INSULIN LISPRO (humaLOG) 300 UNIT/3 ML VIAL SQ SCH ×4 (00:04→19:35)
[2016-12-29] MEDS: ACETAMINOPHEN TAB 325 MG TAB PO PRN (00:07)
[2016-12-29] MEDS: SODIUM CHLORIDE 0.9% 1,000 ML IV SCH ×2 (01:33→17:11)
[2016-12-29] MEDS: GABAPENTIN 400 MG CAP PO SCH ×5 (01:33→21:39)
[2016-12-29] MEDS: METOCLOPRAMIDE 5 MG/ML 2 ML VIAL IVP SCH ×3 (02:15→17:44)
[2016-12-29] MEDS: ONDANSETRON 4 MG/2 ML VIAL IVP SCH ×3 (04:19→17:44)
[2016-12-29] MEDS: TOPIRAMATE 100 MG TAB PO SCH ×3 (04:23→17:12)
[2016-12-29] MEDS ORDERED: DEXAMETHASONE SOD PHOSPHATE 10 MG/ML 1 ML VIAL IV STA (05:04)
[2016-12-29 06:01] LABS: Glucose,Whole Blood 155 mg/dL (75-99)
[2016-12-29] MEDS: PANTOPRAZOLE 40 MG/10 ML VIAL IVP SCH (07:57)
[2016-12-29] MEDS: ENOXAPARIN 40 MG/0.4 ML SYRINGE SQ SCH (07:57)
[2016-12-29] MEDS: SODIUM CHLORIDE 0.9% IVPB SCH ×2 (08:16→21:37)
[2016-12-29] MEDS: PHENYTOIN SODIUM IVPB SCH ×2 (08:16→21:37)
[2016-12-29 08:38] LABS: Anion Gap 14 mmol/L; Carbon Dioxide 20 mmol/L (22-30); Chloride 107 mmol/L (98-107); Glucose 144 mg/dL (74-99); Non-African American GFR(MDRD) >60 (>60 ml/min/1.73 sqM); Sodium 141 mmol/L (137-145)
[2016-12-29 09:08] LABS: Phosphorous 3.5 mg/dL (2.5-4.5); Potassium 4.3 mmol/L (3.5-5.1)
[2016-12-29 09:09] LABS: Blood Urea Nitrogen 17 mg/dL (7-17); Magnesium 2.2 mg/dL (1.6-2.3)
[2016-12-29] MEDS ORDERED: BISACODYL 10 MG SUPP RECTAL STA (09:19)
[2016-12-29] MEDS: LACOSAMIDE IV 150 MG in SODIUM CHLORIDE 0.9% 50 ML IVPB SCH ×2 (09:38→22:37)
[2016-12-29] MEDS: LORazepam 2 MG/ML SYRINGE IV SCH ×2 (09:59→21:38)
[2016-12-29 11:40] LABS: Glucose,Whole Blood 110 mg/dL (75-99)
--- NOTE | 2016-12-29 12:06 | P.PN ---
Subjective Principal diagnosis: Nausea or vomiting Patient is a 46-year-old white female who is status post exploratory laparotomy December 14 with extensive lysis of adhesions and repair of internal hernia. The patient initially did well and was discharged but returned on December 19 with symptoms suggestive of ileus. The patient is passing flatus. patient She had significant nausea yesteday but has settled down now. Objective - Vital Signs Vital signs: Vital Signs Temp 97.2 F L 12/29/16 07:35 Pulse 94 12/29/16 07:35 Resp 16 12/29/16 07:35 BP 133/87 12/29/16 07:35 Pulse Ox 96 12/29/16 07:35 Intake & Output 12/28/16 12/29/16 12/29/16 18:59 06:59 18:59 Intake Total 1021 960 454 Output Total 2 Balance 1019 960 454 Weight 77.5 kg Intake: IV 150 Lacosamide IV 150 mg In 50 Sodium Chloride 0.9% 50 ml @ 100 mls/hr IVPB BID FIOR Rx#:[id number] Phenytoin Sodium Inj 300 100 mg In Sodium Chloride 0.9 % 100 ml @ 200 mls/hr IVPB BID FIOR Rx#: [id number] Intake, IV Titration 1021 660 454 Amount Mvi, Adult No.4 with Vit 1021 454 K 10 ml Trace (Conc-1Ml/ Dose) 1 ml Sodium Acetate 20 meq In Amino Acid 5%- D25w+Lytes*E* 1,000 ml @ 60 mls/hr IV .BY DURATION FIOR Rx#:[id number] Sodium Acetate 20 meq In 660 Amino Acid 5%-D25w+Lytes* E* 1,000 ml @ 60 mls/hr IV .BY DURATION FIOR Rx#: [id number] Oral 150 Output: Stool 2 Other: Voiding Method Toilet # Voids 2 3 - Constitutional General appearance: Present: cooperative, no acute distress - EENT Eyes: Present: abnormal pupil, PERRLA - Cardiovascular Rhythm: regular - Gastrointestinal General gastrointestinal: Present: soft. Absent: distended, organomegaly, rigid , splenomegaly, tenderness, umbilical hernia, ventral hernia - Labs CBC & Chem 7: 12/25/16 07:48 12/29/16 07:37 Labs: Abnormal Lab Results - Last 24 Hours (Table) 12/28/16 12/28/16 12/29/16 Range/Units 17:05 23:54 05:56 Carbon Dioxide (22-30) mmol/L Glucose (74-99) mg/dL POC Glucose (mg/dL) 112 H 148 H 155 H (75-99) mg/dL 12/29/16 12/29/16 Range/Units 07:37 11:38 Carbon Dioxide 20 L (22-30) mmol/L Glucose 144 H (74-99) mg/dL POC Glucose (mg/dL) 110 H (75-99) mg/dL Assessment and Plan (1) Diarrhea Status: Acute (2) Abdominal pain Status: Acute Plan: I will advacne her deit Start carafate Further management per Dr Durán
[2016-12-29 13:38] LABS: Glucose,Whole Blood 105 mg/dL (75-99)
[2016-12-29] MEDS: SUCRALFATE 1 GM TAB PO SCH (17:44)
[2016-12-29] MEDS ORDERED: 1: MVI, ADULT NO.4 WITH VIT K 10 ML, TRACE (CONC-1ML/DOSE) 1 ML, SODIUM ACETATE 20 MEQ i IV SCH ×4 (18:00)
[2016-12-29] MEDS ORDERED: ONDANSETRON 4 MG/2 ML VIAL IVP PRN (19:08)
--- NOTE | 2016-12-29 19:17 | P.PN ---
Subjective Principal diagnosis: Ileus She reports having more trouble with nausea including intractable nausea and vomiting overnight. She responds very well to Decadron. She states chronic nausea even prior to her surgery and has been long-standing with her antiseizure medications. She is passing flatus. Her vomiting only occurs after belching. She is drinking primarily through straws. She denies any abdominal pain. No reports of fevers or chills. She has poor peripheral access and reports moderate bruising from her blood draws. Objective - Vital Signs Vital signs: Vital Signs Temp 98.9 F 12/29/16 13:51 Pulse 91 12/29/16 13:51 Resp 16 12/29/16 13:51 BP 135/90 12/29/16 13:51 Pulse Ox 95 12/29/16 13:51 Intake & Output 12/28/16 12/29/16 12/29/16 18:59 06:59 18:59 Intake Total 1021 960 454 Output Total 2 Balance 1019 960 454 Weight 77.5 kg Intake: IV 150 Lacosamide IV 150 mg In 50 Sodium Chloride 0.9% 50 ml @ 100 mls/hr IVPB BID FIOR Rx#:[id number] Phenytoin Sodium Inj 300 100 mg In Sodium Chloride 0.9 % 100 ml @ 200 mls/hr IVPB BID FIOR Rx#: [id number] Intake, IV Titration 1021 660 454 Amount Mvi, Adult No.4 with Vit 1021 454 K 10 ml Trace (Conc-1Ml/ Dose) 1 ml Sodium Acetate 20 meq In Amino Acid 5%- D25w+Lytes*E* 1,000 ml @ 60 mls/hr IV .BY DURATION FIOR Rx#:[id number] Sodium Acetate 20 meq In 660 Amino Acid 5%-D25w+Lytes* E* 1,000 ml @ 60 mls/hr IV .BY DURATION FIOR Rx#: [id number] Oral 150 Output: Stool 2 Other: Voiding Method Toilet # Voids 2 3 - Exam GENERAL: Well developed and in no acute distress. Pleasant. HEENT: No sclera icterus. Extraocular movements grossly intact. Moist buccal mucosa. Head is atraumatic, normocephalic. Hears conversational speech. No nasal drainage. NECK: Supple without lymphadenopathy. No JV distention. CHEST: Non-labored respirations and equal bilateral excursions. CARDIOVASCULAR: Regular rate and rhythm. Palpable 2+ radial pulses. ABDOMEN: Soft, nontender. Nondistended. MUSCULOSKELETAL: No clubbing, cyanosis or edema. Area of ecchymosis along proximal forearm and hands from attempted blood draws and IV access. NEUROLOGIC: No focal or lateralizing signs. PSYCH: Appropriate affect. Alert and oriented to person, place and time. - Labs CBC & Chem 7: 12/25/16 07:48 12/29/16 07:37 Labs: Abnormal Lab Results - Last 24 Hours (Table) 12/28/16 12/29/16 12/29/16 Range/Units 23:54 05:56 07:37 Carbon Dioxide 20 L (22-30) mmol/L Glucose 144 H (74-99) mg/dL POC Glucose (mg/dL) 148 H 155 H (75-99) mg/dL 12/29/16 12/29/16 Range/Units 11:38 13:24 Carbon Dioxide (22-30) mmol/L Glucose (74-99) mg/dL POC Glucose (mg/dL) 110 H 105 H (75-99) mg/dL Assessment and Plan (1) Adynamic ileus Status: Acute (2) Migraines Status: Chronic (3) Seizure disorder Status: Chronic Plan: 1. I reviewed her home medications whereby all her seizure medications including Neurontin, Vimpat, and Lamictal causes chronic nausea including obstipation. This poses a challenge for controlling her nausea. 2. As she has started with liquids, I have asked her to avoid straws at this also causes additional spasms along the GI tract. In the interim, recommend simethicone and Levsin. 3. She has started Carafate and reports intolerance to this medication. 4. I reviewed several list of antiemetics. Will start trial of oral antiemetics such as vistaril.
[2016-12-29] MEDS ORDERED: DRONABINOL 2.5 MG CAP PO SCH (19:30)
[2016-12-29] MEDS: FAT EMULSION 20% 250 ML IV SCH (19:36)
[2016-12-29] MEDS ORDERED: METOCLOPRAMIDE 5 MG/ML 2 ML VIAL IVP PRN (21:00)
[2016-12-29] MEDS: SIMETHICONE 40 MG/0.6 ML DROPS 2,000 MG/30 ML BOTTLE PO SCH (21:38)
[2016-12-29] MEDS: hydrOXYzine PAMOATE 25 MG CAP PO SCH (21:38)
[2016-12-29] MEDS: HYOSCYAMINE ORAL DROPS 1.875 MG/15 ML BOTTLE PO SCH (21:38)
[2016-12-30] MEDS: TOPIRAMATE 100 MG TAB PO SCH ×3 (00:23→17:31)
[2016-12-30] MEDS: HYOSCYAMINE ORAL DROPS 1.875 MG/15 ML BOTTLE PO SCH ×5 (00:56→17:27)
[2016-12-30] MEDS: ACETAMINOPHEN TAB 325 MG TAB PO PRN (01:19)
[2016-12-30] MEDS: SODIUM CHLORIDE 0.9% 1,000 ML IV SCH (03:37)
[2016-12-30 07:38] VITALS: RESP 17
[2016-12-30] MEDS: SUCRALFATE 1 GM TAB PO SCH (07:47)
[2016-12-30] MEDS: ENOXAPARIN 40 MG/0.4 ML SYRINGE SQ SCH (07:47)
[2016-12-30] MEDS: GABAPENTIN 400 MG CAP PO SCH ×3 (07:49→17:25)
[2016-12-30] MEDS: PANTOPRAZOLE 40 MG/10 ML VIAL IVP SCH (07:56)
[2016-12-30] MEDS: SIMETHICONE 40 MG/0.6 ML DROPS 2,000 MG/30 ML BOTTLE PO SCH ×3 (07:57→17:28)
[2016-12-30] MEDS: hydrOXYzine PAMOATE 25 MG CAP PO SCH ×2 (08:01→14:12)
[2016-12-30] MEDS ORDERED: LORazepam 1 MG TAB PO SCH (09:00)
[2016-12-30] MEDS: LACOSAMIDE IV 150 MG in SODIUM CHLORIDE 0.9% 50 ML IVPB SCH (09:02)
[2016-12-30] MEDS: PHENYTOIN SODIUM IVPB SCH (09:03)
[2016-12-30] MEDS: SODIUM CHLORIDE 0.9% IVPB SCH (09:03)
[2016-12-30 12:02] VITALS: BMI 25.6
[2016-12-30 13:38] VITALS: BP 145/79; PULSE 84; TEMP 98.2
--- NOTE | 2016-12-30 17:18 | P.PN ---
Subjective Principal diagnosis: Ileus Patient was readmitted secondary to ileus. She has severe intractable nausea. She reports this has been present with her antiseizure medications several years. She has now become immune to Zofran including Reglan. She has been started on Vistaril and she reports finally having improvement of her nausea. She has a very sensitive gag reflex whereby she belches coughs and then vomits. She reports no benefit with the Carafate. Overall she feels she is doing better today than in the last several days. She is yet to be advanced to a regular diet. Objective - Vital Signs Vital signs: Vital Signs Temp 98.2 F 12/30/16 13:36 Pulse 84 12/30/16 13:36 Resp 17 12/30/16 13:36 BP 145/79 12/30/16 13:36 Pulse Ox 99 12/30/16 13:36 Intake & Output 12/29/16 12/30/16 12/30/16 18:59 06:59 18:59 Intake Total 764 1090 Output Total 501 Balance 764 589 Weight 76.5 kg 76.5 kg Intake: IV 310 490 Lacosamide IV 150 mg In 50 Sodium Chloride 0.9% 50 ml @ 100 mls/hr IVPB BID FIOR Rx#:[id number] Phenytoin Sodium Inj 300 100 mg In Sodium Chloride 0.9 % 100 ml @ 200 mls/hr IVPB BID FIOR Rx#: [id number] Sodium Chloride 0.9% 1, 160 490 000 ml @ 70 mls/hr IV . [id number] FIOR Rx#:[id number] Intake, IV Titration 454 Amount Mvi, Adult No.4 with Vit 454 K 10 ml Trace (Conc-1Ml/ Dose) 1 ml Sodium Acetate 20 meq In Amino Acid 5%- D25w+Lytes*E* 1,000 ml @ 60 mls/hr IV .BY DURATION FIOR Rx#:[id number] Oral 600 Output: Stool 1 Emesis 500 Other: Voiding Method Toilet Toilet # Voids 2 - Exam GENERAL: Well developed and in no acute distress. Pleasant. HEENT: No sclera icterus. Extraocular movements grossly intact. Moist buccal mucosa. Head is atraumatic, normocephalic. Hears conversational speech. No nasal drainage. NECK: Supple without lymphadenopathy. No JV distention. CHEST: Non-labored respirations and equal bilateral excursions. CARDIOVASCULAR: Regular rate and rhythm. Palpable 2+ radial pulses. ABDOMEN: Soft, nontender. Nondistended. Midline incision intact without infection. MUSCULOSKELETAL: No clubbing, cyanosis or edema. Area of ecchymosis along proximal forearm and hands from attempted blood draws and IV access. NEUROLOGIC: No focal or lateralizing signs. PSYCH: Appropriate affect. Alert and oriented to person, place and time. - Labs CBC & Chem 7: 12/25/16 07:48 12/29/16 07:37 Assessment and Plan (1) Adynamic ileus Status: Acute (2) Migraines Status: Chronic (3) Seizure disorder Status: Chronic (4) Irritable bowel syndrome Status: Acute (5) Chronic nausea Status: Chronic (6) Poor venous access Status: Acute Plan: 1. She has responded well to Vistaril. She will be discontinued home with the medication. 2. Carafate has been discontinued. 3. Continue with PICC line upon discharge. Will arrange for flushes of her PICC line. 4. Advance to regular diet. Should she tolerate diet, may discharge home with follow-up in 3-5 days in the office.
--- NOTE | 2016-12-30 17:23 | P.DS ---
Providers Date of admission: 12/20/16 14:19 Expected date of discharge: 12/30/16 Attending physician: Alberta Durán Consults: 12/21/16 21:07 Consult Physician Routine Consulting Provider: Kim Morel Consult Reason/Comments: Siezure disorder, uncontrolled Do you want consulting provider notified?: Yes 12/24/16 17:26 Consult Physician Stat Consulting Provider: Tameka Michael Consult Reason/Comments: extravisation from mediport cathater Do you want consulting provider notified?: Already Contacted Primary care physician: Dc Aceves - Discharge Diagnosis(es) (1) Adynamic ileus Current Visit: Yes Status: Acute (2) Migraines Current Visit: No Status: Chronic (3) Seizure disorder Current Visit: No Status: Chronic (4) Irritable bowel syndrome Current Visit: Yes Status: Acute (5) Chronic nausea Current Visit: No Status: Chronic (6) Poor venous access Current Visit: Yes Status: Acute (7) Drug-induced nausea and vomiting Current Visit: Yes Status: Acute (8) Chronic bilateral lower abdominal pain Current Visit: No Status: Chronic Hospital Course: The patient is a 46-year-old female who initially underwent exploratory laparotomy with lysis of adhesions. She was doing quite well for at least 4+ days then she returned to the hospital with moderate ileus. She had a nasogastric tube decompression. She had multiple studies including computed tomography scan of the abdomen and pelvis questionable for Crohn's disease. As a result gastrointestinal team was consulted. Upon the GI team recommendation, no evidence of Crohn's disease was identified. She had a PICC line placed secondary to malfunction of her Mediport. She was transiently placed on TPN. Prior to discharge, further elucidation of her chronic nausea and vomiting has been long-standing with her history of anti-seizure medications. She became immune to both Zofran included Reglan. She had responded well to Decadron. She had been switched to Vistaril and finally had relief. Prior to discharge she was tolerating diet. She is passing flatus and having bowel movements. Pertinent Studies: CT of the abdomen and pelvis demonstrating Multiple abdominal x-rays demonstrating ileus. Procedures: Mediport removal by vascular team. Patient Condition at Discharge: Stable Plan - Discharge Summary New Discharge Prescriptions: Hyoscyamine Oral Drops [Levsin Drops] 0.25 mg PO Q4HR PRN #15 ml PRN Reason: Spasms Simethicone 40 mg/0.6 ml Drops [Mylicon Drops] 40 mg PO QID #30 ml hydrOXYzine PAMOATE [Vistaril] 25 mg PO QID PRN #60 cap PRN Reason: Nausea Discharge Medication List Albuterol Inhaler [Ventolin Hfa Inhaler] 1 - 2 puff INHALATION RT-QID PRN [History] LORazepam [Ativan] 1 mg PO BID 11/08/14 [History] Ondansetron [Zofran] 4 mg PO Q12HR PRN 11/08/14 [History] Gabapentin [Neurontin] 800 mg PO QID 04/17/15 [History] Polyethylene Glycol 3350 [Miralax] 17 gm PO DAILY PRN 04/17/15 [History] Topiramate [Topamax] 300 mg PO Q8HR 04/17/15 [History] Lacosamide [Vimpat] 150 mg PO BID 01/08/16 [History] Lactulose [Constulose] 10 gm PO DAILY PRN 01/08/16 [History] Phenytoin Sodium Extended [Dilantin] 300 mg PO BID 12/08/16 [History] Ibuprofen [Motrin] 600 mg PO Q8HR PRN #30 tab 12/13/16 [Rx] Omeprazole 40 mg PO DAILY #30 capsule. 12/13/16 [Rx] Hyoscyamine Oral Drops [Levsin Drops] 0.25 mg PO Q4HR PRN #15 ml 12/30/16 [Rx] Simethicone 40 mg/0.6 ml Drops [Mylicon Drops] 40 mg PO QID #30 ml 12/30/16 [Rx] hydrOXYzine PAMOATE [Vistaril] 25 mg PO QID PRN #60 cap 12/30/16 [Rx] Follow up Appointment(s)/Referral(s): Alberta Durán MD [STAFF PHYSICIAN] - 01/04/17 (call me to confirm time) Maira Donovan MD [STAFF PHYSICIAN] - 2 Weeks (Office closed. Patient to call and schedule follow up appointment.) Patient Instructions/Handouts: Irritable Bowel Syndrome (GEN), Peripherally Inserted Central Catheters and Midline Catheters (DC), Abdominal Pain (ED) Activity/Diet/Wound Care/Special Instructions: No lifting over 4 pounds in 4 weeks. Discharge Disposition: HOME SELF-CARE
--- NOTE | 2017-01-03 10:52 | IR ---
Port-A-Cath check HISTORY: Malfunctioning Port-A-Cath Fluoroscopy was performed over the patient's Port-A-Cath. Gentle hand injection of contrast was perfo rmed with the Port-A-Cath under fluoroscopic observation. Following the procedure patient remained stable, there is no immediate complication. The patient disc harged following consultation with the referring clinician. FINDINGS: There is a fracture of the catheter which is thought to be at the level of the junction of the medial first rib and clavicle. Contrast extravasation is noted. IMPRESSION: Fracture of patient's catheter without ace disruption. Pinch is noted likely due to positioning of the puncture site.
--- NOTE | 2017-01-08 18:53 | P.PCN ---
Date of Procedure: 12/21/16 Preoperative Diagnosis: Poor peripheral access Postoperative Diagnosis: Poor peripheral access Procedure(s) Performed: Access of Mediport Anesthesia: other (Lidocaine cream) Surgeon: Alberta Durán Description of Procedure: After at least 3 attempts by the nurse to access her left IJ port, I was present to evaluate her port access. The skin was cleansed with ChloraPrep. I used a 22-gauge noncoring Avendano needle to access the port. Single stick performed with access of venous blood obtained. Patient tolerated well.
== END 2016-12-30 18:35 | disposition home or self-care (01) | DRG 389 ==
LOC: EC 04:52 → 3SUR 07:34 → OBSVTOIN 12-20 14:19
PROVIDERS: ADMIT Surgery Plastic and Reconstructive Surgery; ATTEND Surgery Plastic and Reconstructive Surgery
PROC: 3E0436Z Introduction of Nutritional Substance into Central Vein, Percutaneous Approach (ICD-10-PCS; 2016-12-24 16:31)
PROC: 0JPT0XZ Removal of Tunneled Vascular Access Device from Trunk Subcutaneous Tissue and Fascia, Open Approach (ICD-10-PCS; 2016-12-24 16:31)
PROC: 02HV33Z Insertion of Infusion Device into Superior Vena Cava, Percutaneous Approach (ICD-10-PCS; principal; 2016-12-26)
DX: K56.0 Paralytic ileus (principal); T82.594A Other mechanical complication of infusion catheter, initial encounter; I10 Essential (primary) hypertension; E87.6 Hypokalemia; F41.9 Anxiety disorder, unspecified; G40.909 Epilepsy, unspecified, not intractable, without status epilepticus; G43.909 Migraine, unspecified, not intractable, without status migrainosus; I34.1 Nonrheumatic mitral (valve) prolapse; J45.909 Unspecified asthma, uncomplicated; K21.9 Gastro-esophageal reflux disease without esophagitis; K58.9 Irritable bowel syndrome, unspecified; G89.29 Other chronic pain; M19.90 Unspecified osteoarthritis, unspecified site; R11.2 Nausea with vomiting, unspecified; T50.995A Adverse effect of other drugs, medicaments and biological substances, initial encounter; Z79.899 Other long term (current) drug therapy; Z88.5 Allergy status to narcotic agent; Z88.0 Allergy status to penicillin; Z88.8 Allergy status to other drugs, medicaments and biological substances; Y82.8 Other medical devices associated with adverse incidents
CPT/HCPCS: 36415; 36569; 36590; 36598; 74000; 74020; 74176; 74177; 76937; 77001; 80048; 80053; 81001; 81025; 82150; 82330; 83036; 83605; 83690; 83735; 84100; 84478; 85025; 87086; 87324; 96361; 96365; 96366; 96367; 96372; 96374; 96375; 96376; 99284

== ENCOUNTER 2017-02-25 05:49 | Day surgery (SDC) | payer OTHER ==
[2017-02-21 18:35] VITALS: BMI 26.6
[~2017-02-25 05:49] MED LIST changes: -ACETAMINOPHEN IV (For NPO) 1,000 MG in EMPTY BAG 1 BAG IVPB ONE; +CLINDAMYCIN 900 MG in DEXTROSE 5% IN WATER 50 ML IVPB ONE; -HEPARIN SODIUM,PORCINE 5,000 UNIT/ML 1 ML VIAL SQ ONE; +LACTATED RINGERS 1,000 ML IV SCH; +LIDOCAINE 1% 20 ML VIAL (10MG/ML) FOR IV START INTRADERMA PRN; -MIDAZOLAM 2 MG/2 ML VIAL IV PRN; +ONDANSETRON 4 MG/2 ML VIAL IVP ONE; -ceFAZolin 2 GM in SODIUM CHLORIDE 0.9% 100 ML IVPB ONE
--- NOTE | 2017-02-25 06:58 | P.GSHP ---
History of Present Illness H&P Date: 02/25/17 CHIEF COMPLAINT: History of malfunctioning port with poor peripheral access. HISTORY OF PRESENT ILLNESS: The patient is a 46-year-old female with intractable seizure disorder including poor peripheral access. She has history of port placement and had malfunction requiring its removal. Now she presents for port placement. Separately, she has history of previous DVT of the arm. She also has history of PICC line placement as well. PAST MEDICAL HISTORY: See list PAST SURGICAL HISTORY: See list CURRENT MEDICATIONS: See list. ALLERGIES: See list. SOCIAL HISTORY: No active tobacco or alcohol use. FAMILY HISTORY: Noncontributory. REVIEW OF ORGAN SYSTEMS: CONSTITUTIONAL: Has weight gain. PHYSICAL EXAMINATION: Vital signs: Stable GENERAL: Well developed and in no acute distress. Pleasant. HEENT: No sclera icterus. Extraocular movements grossly intact. Moist buccal mucosa. Head is atraumatic, normocephalic. Hears conversational speech. No nasal drainage. NECK: Supple without lymphadenopathy. No JV distention. CHEST: Non-labored respirations and equal bilateral excursions. CARDIOVASCULAR: Regular rate and rhythm. Palpable 2+ radial pulses. ABDOMEN: Nontender. MUSCULOSKELETAL: No clubbing, cyanosis or edema. NEUROLOGIC: No focal or lateralizing signs. PSYCH: Appropriate affect. Alert and oriented to person, place and time. ASSESSMENT: 1. History of malfunctioning port. 2. Need for port placement with history of poor peripheral access. 3. Personal history of previous DVT of the arm. PLAN: 1. Will proceed with central venous access for port placement. Past Medical History Past Medical History: Asthma, GERD/Reflux, Hypertension, Mitral Valve Prolapse ( MVP), Musculoskeletal Disorder, Osteoarthritis (OA), Seizure Disorder, Syncope Additional Past Medical History / Comment(s): Migraines, chronic nausea. DDD, 3 herniated disc. no longer needs BP med. Last Seizure 02/2016; STATES HAS AURA' S DAILY. VERY HARD IV START. PICC LINE CURRENTLY. MULT EPISODES SBO, ADHESIONS; SEV MEDIPORTS. History of Any Multi-Drug Resistant Organisms: None Reported Past Surgical History: Appendectomy, Cholecystectomy, Hysterectomy, Orthopedic Surgery, Tubal Ligation Additional Past Surgical History / Comment(s): MULT SURG For Small Bowel Obstruction. MULT Mediport placement. ORIF FX Left Foot. SURG Kidney Stones. LAPAROTOMY FOR SBO, LYSIS OF ADHESIONS X3, LAST 12/13/16. Past Anesthesia/Blood Transfusion Reactions: Previous Problems w/ Anesthesia, Motion Sickness, Postoperative Nausea & Vomiting (PONV) Additional Past Anesthesia/Blood Transfusion Reaction / Comment(s): Pt states she has post anesthesia seizures sometimes, severe PONV Smoking Status: Never smoker - Past Family History Mother Family Medical History: Cancer Additional Family Medical History / Comment(s): leukemia Father Family Medical History: Cancer Medications and Allergies Home Medications Medication Instructions Recorded Confirmed Type Albuterol Inhaler [Ventolin Hfa 1 - 2 puff INHALATION RT-QID PRN 11/08/14 History Inhaler] LORazepam [Ativan] 1 mg PO BID 11/08/14 02/25/17 History Ondansetron [Zofran] 4 mg SL QID 11/08/14 02/25/17 History Gabapentin [Neurontin] 800 mg PO QID 04/17/15 02/25/17 History Polyethylene Glycol 3350 [Miralax] 17 gm PO DAILY 04/17/15 02/25/17 History Topiramate [Topamax] 300 mg PO Q8HR 04/17/15 02/25/17 History Lacosamide [Vimpat] 150 mg PO BID 01/08/16 02/25/17 History Lactulose [Constulose] 10 gm PO DAILY PRN 01/08/16 02/25/17 History Phenytoin Sodium Extended 300 mg PO BID 12/08/16 02/25/17 History [Dilantin] Docusate [Colace] 100 mg PO DAILY 02/21/17 02/25/17 History Ranitidine HCl [Zantac] 150 mg PO BID 02/21/17 02/25/17 History Allergies Allergy/AdvReac Type Severity Reaction Status Date / Time hydromorphone HCl Allergy Severe Chest Pain Verified 02/25/17 06:13 [From Dilaudid] morphine Allergy Severe Rapid Verified 02/25/17 06:13 Heart Rate Penicillins Allergy Severe Rapid Verified 02/25/17 06:13 Heart Rate prochlorperazine edisylate Allergy Severe Rapid Verified 02/25/17 06:13 [From Compazine] Heart Rate prochlorperazine maleate Allergy Severe Rapid Verified 02/25/17 06:13 [From Compazine] Heart Rate Surgical - Exam Vital Signs Temp Pulse Resp BP Pulse Ox 97.7 F 79 16 135/93 99 02/25/17 06:13 02/25/17 06:13 02/25/17 06:13 02/25/17 06:13 02/25/17 06:13
[2017-02-25] MEDS ORDERED: PROPOFOL 10 MG/ML 20 ML VIAL IV ONE (07:28)
[2017-02-25] MEDS ORDERED: fentaNYL (PF) 50 MCG/ML 2 ML AMP ONE (07:28)
[2017-02-25] MEDS ORDERED: MIDAZOLAM 2 MG/2 ML VIAL ONE (07:28)
[2017-02-25] MEDS ORDERED: HEPARIN SODIUM,PORCINE 100 UNIT/ML 5 ML VIAL IV ONE ×3 (07:49)
[2017-02-25] MEDS ORDERED: HEPARIN SODIUM,PORCINE 10,000 UNIT/ML 1 ML VIAL IV ONE ×2 (07:50)
[2017-02-25] MEDS ORDERED: BUPIVACAIN-EPI 0.5%-1:200,000 30 ML VIAL SQ ONE (07:52)
[2017-02-25] MEDS ORDERED: ONDANSETRON 4 MG/2 ML VIAL IVP PRN (08:58)
[2017-02-25] MEDS ORDERED: NALOXONE 0.4 MG/ML 1 ML VIAL IV PRN (08:58)
--- NOTE | 2017-02-25 08:58 | P.PCN ---
Date of Procedure: 02/25/17 Preoperative Diagnosis: Poor eripheral access, history of port malfunction, intractable seizure disorder Postoperative Diagnosis: Same, right internal jugular vein DVT Procedure(s) Performed: Ultrasound assessment of bilateral internal carotid and internal jugular artery and vein, fluoroscopy for central venous access 12 seconds, placement of right subclavian vein 6-Hungarian Port-A-Cath Implants: Anesthesia: local Surgeon: Alberta Durán Estimated Blood Loss (ml): 20 Pathology: none sent Condition: stable Disposition: floor Indications for Procedure: Operative Findings: 1. Initial segment of the right internal jugular vein demonstrates a distal thrombus of the confluence. Proximal internal jugular vein patent. 2. Bilateral internal carotid arteries patent without thrombus. 3. Left internal jugular vein patent however unable to cannulate secondary to anomaly. 4. Right's subclavian jugular vein accessed with single access. 5. Port completely patent and functioning without kinks or torsion of tubing. 6. Tubing cut to 20 cm. Description of Procedure:
[2017-02-25 09:03] VITALS: TEMP 97.6
--- NOTE | 2017-02-25 09:24 | XR ---
EXAMINATION TYPE: XR chest 1V confirm line [facility] DATE OF EXAM: 02/25/2017 COMPARISON: Chest x-ray February 13, 2016 HISTORY: Right Port-A-Cath insertion TECHNIQUE: Single AP portable frontal view of the chest is obtained. FINDINGS: There is right subclavian Mediport catheter with tip in SVC. There is left-sided PICC line with tip in SVC. There is no focal air space opacity, pleural effusion, or pneumothorax seen. The ca rdiac silhouette size is within normal limits. The osseous structures are intact. IMPRESSION: Right-sided subclavian Mediport catheter with tip in SVC, no evidence of pneumothorax af ter catheter placement.
[2017-02-25 09:32] VITALS: RESP 16
[2017-02-25] MEDS ORDERED: ACETAMINOPHEN TAB 325 MG TAB PO ONE (09:40)
--- NOTE | 2017-02-25 10:03 | FL ---
EXAMINATION TYPE: FL guided central line placemt DATE OF EXAM: 02/25/2017 CLINICAL HISTORY: TPN TECHNIQUE: Fluoroscopy. COMPARISON: None. FINDINGS: A total of 12 seconds of fluoroscopic time was utilized during the procedure. IMPRESSION: As Above.
[2017-02-25 10:04] VITALS: BP 123/85; PULSE 80
--- NOTE | 2017-02-25 11:57 | P.PN ---
Progress Note - Text Patient has high risk of intractable nausea vomiting postop. We'll continue with PICC line in the interim. PICC line to be discontinued in the office of [facility] next week. Dressings were changed at bedside for her PICC line.
== END 2017-02-25 11:36 | disposition home or self-care (01) ==
LOC: OR 05:49
PROVIDERS: ATTEND Surgery Plastic and Reconstructive Surgery
DX: I99.8 Other disorder of circulatory system (principal); G40.804 Other epilepsy, intractable, without status epilepticus; Z95.828 Presence of other vascular implants and grafts; Z86.718 Personal history of other venous thrombosis and embolism; I34.1 Nonrheumatic mitral (valve) prolapse; I10 Essential (primary) hypertension; J45.909 Unspecified asthma, uncomplicated; K21.9 Gastro-esophageal reflux disease without esophagitis; Z79.899 Other long term (current) drug therapy; Z88.5 Allergy status to narcotic agent; Z88.0 Allergy status to penicillin; Z88.8 Allergy status to other drugs, medicaments and biological substances
CPT/HCPCS: 77001; 36561; 76937; C1788; J2250; J1644; J1642; J1100; J2405; J3010; J2704

== ENCOUNTER → 2017-03-23 | Outpatient (CLI) | payer OTHER ==
--- NOTE | 2017-03-23 14:08 | US ---
EXAMINATION TYPE: US thyroid st tissue head/neck DATE OF EXAM: 03/23/2017 COMPARISON: NONE CLINICAL HISTORY: R13.10 Dysphagia. pt states feeling of neck pressure and difficulty swallowing GLAND SIZE: Right Lobe: 5.2 x 1.1 x 1.8 cm Overall Parenchyma: homogenous Left Lobe: 4.9 x 1.5 x 1.6 cm Overall Parenchyma: heterogeneous Isthmus Thickness: 0.3 cm NODULES RIGHT: # of nodules measured on right: 4 1. 1.3 X 0.6 x 0.9 cm isoechoic solid nodule at the upper anterior pole with well-defined margins. This nodule is wider than tall and shows no intranodular vascularity. Prior size: no previous scan 2. 0.4 X 0.3 x 0.4 cm hypoechoic cystic nodule at the upper pole with well-defined margins. This no dule is wider than tall and shows no intranodular vascularity. Prior size: no previous scan 3. 0.3 X 0.2 x 0.4 cm hypoechoic cystic nodule at the mid pole with well-defined margins. This nodu le is wider than tall and shows no intranodular vascularity. Prior size: no previous scan 4. 0.4 X 0.3 x 0.5 cm hypoechoic solid nodule at the lower medial pole with well-defined margins. T his nodule is wider than tall and shows hypervascularity. Prior size: no previous scan LEFT: # of nodules measured on left: 2 1. 0.4 X 0.2 x 0.2 cm hypoechoic cystic nodule at the upper pole with well-defined margins. This n odule is wider than tall and shows no intranodular vascularity. Prior size: no previous scan 2. 0.4 X 0.3 x 0.3 cm complex cystic nodule at the mid pole with well-defined margins. This nodule is wider than tall and shows no intranodular vascularity. Prior size: no previous scan ISTHMUS: # of nodules measured in the isthmus: 0 Bilateral soft tissue neck scanned. 1. Symmetrical bilateral lymph nodes. 2. Small bilateral thyroid nodules, more on left than right. Rt lower pole nodule demonstrates incr eased vascularity. 3. The left lobe posteriorly demonstrates increased hypoechoic heterogeneous tissue. There does bam ear to be two exophytic solid structures that may represent PTAs, measuring 0.9 x 0.5 x 0.7cm and 0.8 x 0.5 x 0.8cm. Thyroid gland is overall normal in size and fairly homogeneous echotexture with scattered small nodul es identified by technologist bilaterally. There is slightly hypoechoic oval poorly marginated area a long superior margin of right thyroid gland measuring 1.3 cm on long axis, solid thyroid nodule is no t excluded but etiology may be extrathyroid or could even reflect prominent lobulated tissue. I favor benign. Of more suspicion are 2 oval subcentimeter isoechoic to hypoechoic fairly well-defined lesio n along posterior aspect of left thyroid could reflect prominent parathyroid glands. IMPRESSION: Thyroid gland is normal in size with scattered small nodules present. Possible left-sided parathyroid adenomas, clinical and lab correlation recommended. Would advise repeat ultrasound in one year's shailesh e for possible 1.2 cm upper pole right thyroid nodule.
== END | disposition home or self-care (01) ==
LOC: RADUSWWP 13:07
PROVIDERS: ATTEND Surgery Plastic and Reconstructive Surgery
DX: E04.2 Nontoxic multinodular goiter (principal)
CPT/HCPCS: 76536

== ENCOUNTER → 2017-06-08 | Outpatient (CLI) | payer OTHER ==
--- NOTE | 2017-06-09 07:49 | USB ---
Reason for exam: clinical finding. History: Patient is postmenopausal. Family history of breast cancer in 2 maternal aunts. Taking estrogen for 11 years beginning at age 32. Physical Findings: Nurse Summary: bilateral scattered nodularities (mj). US Breast BILAT Right breast ultrasound includes all four quadrants, the retroareolar region and axilla. Finding demonstrates no cystic or solid lesion seen. Left breast ultrasound includes all four quadrants, the retroareolar region and axilla. Finding demonstrates no cystic or solid lesion seen. No suspicious findings. Mild ductal prominence on right breast.. No solid masses seen. Note microcalcifications that may represent DCIS/IDC can not be seen sonographically, mammography recommended. These results were verbally communicated with the patient and result sheet given to the patient on 06/08/17. ASSESSMENT: Negative, BI-RAD 1 RECOMMENDATION: Routine screening mammogram of both breasts. Patient is due for screening mammogram. Manage patient on a clinical basis.
== END | disposition home or self-care (01) ==
LOC: RADUSWWP 13:54
PROVIDERS: ATTEND Family Medicine
DX: Z12.39 Encounter for other screening for malignant neoplasm of breast (principal)

== ENCOUNTER → 2019-03-28 | Outpatient (CLI) | payer OTHER ==
--- NOTE | 2019-03-28 11:35 | US ---
EXAMINATION TYPE: US abdomen complete DATE OF EXAM: 03/28/2019 COMPARISON: CT abdomen and pelvis December 21, 2016 CLINICAL HISTORY: R10.9 abd pain. Intermittent LLQ pain couple months, nausea, history of cholecystec noman. History of bowel obstruction. EXAM MEASUREMENTS: Liver Length: 14.8 cm Gallbladder Wall: surgically absent CBD: 0.8 cm Spleen: 12.5 cm Right Kidney: 9.9 x 4.0 x 4.3 cm Left Kidney: 9.8 x 4.7 x 3.7 cm Pancreas: visualized portions wnl, limited by overlying midline bowel gas Liver: course echotexture Gallbladder: surgically absent Evidence for sonographic Owusu's sign: no CBD: wnl Spleen: wnl Right Kidney: cortical thinning Left Kidney: cortical thinning Upper IVC: wnl Abd Aorta: visualized portions wnl, limited by overlying midline bowel gas The visualized liver is slightly heterogeneous. The intrahepatic portion of the IVC and visualized a bdominal aorta are within normal limits. Gallbladder is surgically absent. Common bile duct is unrem arkable. The visualized portions of the pancreas are homogenous. The spleen is upper limits of norm al in size. Kidneys are symmetric and free of hydronephrosis. No renal lesions are seen. Symmetric cortical thinning is present IMPRESSION: No suspicious new or acute finding seen to account for patient's symptoms of left-sided p ain.
== END | disposition home or self-care (01) ==
LOC: RADUSWWP 09:54
PROVIDERS: ATTEND Family Medicine
DX: R10.9 Unspecified abdominal pain (principal)
CPT/HCPCS: 76700

== ENCOUNTER → 2019-05-15 | Outpatient (CLI) | payer OTHER ==
--- NOTE | 2019-05-15 14:12 | CT ---
EXAMINATION TYPE: CT abdomen pelvis wo con DATE OF EXAM: 05/15/2019 HISTORY: Left sided and pelvic pain. Diverticulitis per order. CT DLP: 632.7 mGycm. Automated Exposure Control for Dose Reduction was Utilized. TECHNIQUE: CT scan of the abdomen and pelvis is performed with oral but without IV contrast. COMPARISON: CT abdomen and pelvis December 21, 2016 and older CTs FINDINGS: Within the limitations of a non-contrast study, the following observations are made. LUNG BASES: No significant abnormality is appreciated. LIVER/GB: Cholecystectomy clips are redemonstrated. PANCREAS: No significant abnormality is seen. SPLEEN: No significant abnormality is seen. ADRENALS: No significant abnormality is seen. KIDNEYS: Mild right-sided hydronephrosis is present current study improved from 2016 study without ob structing calculus. No renal calculus is identified bilaterally. No left-sided hydronephrosis. Some l eft-sided pelvic phleboliths are redemonstrated. There is additional surgical clip in the left pelvic cul-de-sac coronal image 61 redemonstrated unchanged from 2016 CT. BOWEL: Oral contrast reaches level of left colon. No suspicious small or large bowel dilatation. Appe ndix surgically absent with clips noted base of cecum coronal image 48 some prominence of fecal mater ial in the transverse and left colon extending into sigmoid colon and rectum. No significant divertic ulosis or acute diverticulitis. GENITAL ORGANS: Uterus surgically absent or markedly atrophic similar to prior studies. LYMPH NODES: No greater than 1cm abdominal or pelvic lymph nodes are appreciated. OSSEOUS STRUCTURES: Facet arthropathy lower lumbar levels. OTHER: No significant additional abnormality is seen. IMPRESSION: No significant or colonic diverticulosis or acute diverticulitis. No suspicious new or ac sravan finding identified to account for patient's symptoms.
== END | disposition home or self-care (01) ==
LOC: RADCTMAIN 11:33
PROVIDERS: ATTEND Surgery Plastic and Reconstructive Surgery
DX: K57.32 Diverticulitis of large intestine without perforation or abscess without bleeding (principal)
CPT/HCPCS: 74176

== ENCOUNTER 2019-06-13 08:47 | Day surgery (SDC) | payer OTHER ==
[2019-06-11 16:24] VITALS: BMI 28.7
--- NOTE | 2019-06-13 07:51 | P.GSHP ---
History of Present Illness H&P Date: 06/13/19 CHIEF COMPLAINT: Change in bowel habits HISTORY OF PRESENT ILLNESS: The patient is a 49-year-old female who presents for change in bowel habits. Lower endoscopy was offered for further evaluation and management. PAST MEDICAL HISTORY: Please see list. PAST SURGICAL HISTORY: Please see list. MEDICATIONS: Please see list. ALLERGIES: Please see list. SOCIAL HISTORY: No illicit drug use FAMILY HISTORY: No reports of Crohn disease or ulcerative colitis. REVIEW OF ORGAN SYSTEMS: CONSTITUTIONAL: No reports of fevers or chills. PHYSICAL EXAM: VITAL SIGNS: Stable GENERAL: Well-developed pleasant in no acute distress. HEENT: No scleral icterus. Extraocular movements grossly intact. Moist buccal mucosa. NECK: Supple without lymphadenopathy. CHEST: Unlabored respirations. Equal bilateral excursions. CARDIOVASCULAR: Regular rate and rhythm. Distal 2+ pulses. ABDOMEN: Soft, nontender, nondistended. MUSCULOSKELETAL: No clubbing, cyanosis, or edema. ASSESSMENT: 1. Change in bowel habits PLAN: 1. Recommend proceeding with a lower endoscopy Past Medical History Past Medical History: Asthma, GERD/Reflux, Hypertension, Mitral Valve Prolapse (MVP), Osteoarthritis (OA), Renal Disease, Seizure Disorder, Syncope, Thyroid Disorder Additional Past Medical History / Comment(s): migraines and chronic nausea, DDD, 3 herniated disc, STATES HAS AURA'S DAILY, HAS MEDIPORT. VERY HARD IV START." LAST SEIZURE - DAILY BUT VNS IMPLANT HAS CONTROLLED THEM", NODULES ON THYROID History of Any Multi-Drug Resistant Organisms: None Reported Past Surgical History: Appendectomy, Cholecystectomy, Hysterectomy, Orthopedic Surgery, Tubal Ligation Additional Past Surgical History / Comment(s): surg. for small bowel obstruction, right internal jugular mediport placement - November 2014, HAS HAD 4 MEDIPORTS, repair fx. left foot, surg. for kidney stones LAPROSCOPIC SURGERY FOR 01/2016 lysis of adhesions, VNS IMPLANT (LEFT SIDE OF CHEST ) Past Anesthesia/Blood Transfusion Reactions: Previous Problems w/ Anesthesia, Motion Sickness, Postoperative Nausea & Vomiting (PONV) Additional Past Anesthesia/Blood Transfusion Reaction / Comment(s): pt states she has post anesthesia seizures sometimes, severe PONV Smoking Status: Never smoker - Past Family History Mother Family Medical History: Cancer, Deep Vein Thrombosis (DVT) Additional Family Medical History / Comment(s): leukemia Father Family Medical History: Cancer Medications and Allergies Home Medications Medication Instructions Recorded Confirmed Type Albuterol Inhaler [Ventolin Hfa 1 - 2 puff INHALATION RT-QID PRN 11/08/14 06/11/19 History Inhaler] LORazepam [Ativan] 1 mg PO BID 11/08/14 06/11/19 History Ondansetron [Zofran] 4 mg SL QID PRN 11/08/14 06/11/19 History Gabapentin [Neurontin] 800 mg PO QID 04/17/15 06/11/19 History Polyethylene Glycol 3350 [Miralax] 17 gm PO DAILY 04/17/15 06/11/19 History Topiramate [Topamax] 300 mg PO Q8HR 04/17/15 06/11/19 History Lacosamide [Vimpat] 150 mg PO BID 01/08/16 06/11/19 History Lactulose [Constulose] 10 gm PO DAILY PRN 01/08/16 06/11/19 History Phenytoin Sodium Extended 300 mg PO BID 12/08/16 06/11/19 History [Dilantin] Simethicone 40 mg/0.6 ml Drops 40 mg PO QID #30 ml 12/30/16 06/11/19 Rx [Mylicon Drops] hydrOXYzine PAMOATE [Vistaril] 25 mg PO QID PRN #120 cap 01/06/17 06/11/19 Rx Docusate [Colace] 100 mg PO DAILY 02/21/17 06/11/19 History Ranitidine HCl [Zantac] 150 mg PO BID 02/21/17 06/11/19 History Calcitriol [Rocaltrol] 0.25 mcg PO WEEKLY 06/11/19 06/11/19 History Ergocalciferol [Vitamin D2] 50,000 unit PO SA 06/11/19 06/11/19 History Hyoscyamine Oral Drops [Levsin 0.25 mg PO Q4HR PRN 06/11/19 06/11/19 History Drops] Lidocaine-Prilocaine Cream [Emla 1 applic TOPICAL DAILY PRN 06/11/19 06/11/19 History Cream 2.5%/2.5%] Allergies Allergy/AdvReac Type Severity Reaction Status Date / Time hydromorphone HCl Allergy Severe Chest Pain Verified 06/11/19 15:30 [From Dilaudid] morphine Allergy Severe Rapid Verified 06/11/19 15:30 Heart Rate Penicillins Allergy Severe Rapid Verified 06/11/19 15:30 Heart Rate prochlorperazine edisylate Allergy Severe Rapid Verified 06/11/19 15:30 [From Compazine] Heart Rate prochlorperazine maleate Allergy Severe Rapid Verified 06/11/19 15:30 [From Compazine] Heart Rate NSAIDS (Non-Steroidal Allergy HISTORY OF Verified 06/11/19 15:30 Anti-Inflamma RENAL DISEASE
[~2019-06-13 08:47] MED LIST changes: -CLINDAMYCIN 900 MG in DEXTROSE 5% IN WATER 50 ML IVPB ONE; -DEXAMETHASONE SOD PHOSPHATE 10 MG/ML 1 ML VIAL IV ONE; -ONDANSETRON 4 MG/2 ML VIAL IVP ONE; -SCOPOLAMINE 1.5MG/72HR PATCH TRANSDERM ONE; -fentaNYL (PF) 50 MCG/ML 2 ML AMP IV PRN
[2019-06-13] MEDS ORDERED: LACTATED RINGERS 1,000 ML IV ONE (09:04)
[2019-06-13 09:06] VITALS: TEMP 97.8
[2019-06-13] MEDS ORDERED: ONDANSETRON 4 MG/2 ML VIAL IVP ONE (09:19)
[2019-06-13] MEDS ORDERED: PROPOFOL 10 MG/ML 20 ML VIAL IV ONE (09:54)
[2019-06-13 10:26] VITALS: RESP 16
--- NOTE | 2019-06-13 10:26 | P.PCN ---
Date of Procedure: 06/13/19 Description of Procedure: PREOPERATIVE DIAGNOSIS: Change in bowel habits POSTOPERATIVE DIAGNOSIS: Change in bowel habits OPERATION: Colonoscopy to the ileocecal valve and appendiceal orifice. SURGEON: Alberta Durán MD. ANESTHESIA: MAC. INDICATIONS: The patient is a 49-year-old female who presents with change in bowel habits. Benefits and risks were described and informed consent was obtained. DESCRIPTION OF PROCEDURE: The patient had undergone Gatorade, MiraLAX and Dulcolax prep. She had been brought into the operating room and laid in the left lateral decubitus position. After adequate intravenous sedation, the rectum was examined with 2% lidocaine jelly. No external hemorrhoids were encountered. The rectal tone was within normal limits. No lesions were palpated in the rectal vault. An Olympus colonoscope was advanced until the ileocecal valve and appendiceal orifice were clearly viewed. The prep was good. The scope was removed with visualization of each mucosal fold. No scattered diverticulosis was encountered. No colonic polyps were found. No evidence of focal colitis was found. Retroflexion of the scope demonstrated grade 1 internal hemorrhoids without active bleeding or inflammation. The colon was desufflated. The patient had tolerated the procedure well. Withdrawal time was over 6 minutes. FINDINGS: Aronchick preparation quality scale 2 (1-5) Internal hemorrhoids, grade 1 No external prolapsed hemorrhoids. No arteriovenous malformations. No adenomatous polyps. No focal colitis. RECOMMENDATIONS: Lower endoscopy in 5 years, 2023 or Cologuard Plan - Discharge Summary Discharge Rx Participant: No New Discharge Prescriptions: No Action LORazepam [Ativan] 1 mg PO BID Ondansetron [Zofran] 4 mg SL QID PRN PRN Reason: Nausea And Vomiting Albuterol Inhaler [Ventolin Hfa Inhaler] 1 - 2 puff INHALATION RT-QID PRN PRN Reason: Shortness Of Breath Topiramate [Topamax] 300 mg PO Q8HR Polyethylene Glycol 3350 [Miralax] 17 gm PO DAILY Gabapentin [Neurontin] 800 mg PO QID Lactulose [Constulose] 10 gm PO DAILY PRN PRN Reason: Constipation Lacosamide [Vimpat] 150 mg PO BID Phenytoin Sodium Extended [Dilantin] 300 mg PO BID Simethicone 40 mg/0.6 ml Drops [Mylicon Drops] 40 mg PO QID #30 ml hydrOXYzine PAMOATE [Vistaril] 25 mg PO QID PRN #120 cap PRN Reason: Nausea Docusate [Colace] 100 mg PO DAILY Ranitidine HCl [Zantac] 150 mg PO BID Calcitriol [Rocaltrol] 0.25 mcg PO WEEKLY Ergocalciferol [Vitamin D2] 50,000 unit PO SA Hyoscyamine Oral Drops [Levsin Drops] 0.25 mg PO Q4HR PRN PRN Reason: Nausea Lidocaine-Prilocaine Cream [Emla Cream 2.5%/2.5%] 1 applic TOPICAL DAILY PRN PRN Reason: USES FOR PORT ACCESS/PAIN Discharge Medication List Albuterol Inhaler [Ventolin Hfa Inhaler] 1 - 2 puff INHALATION RT-QID PRN 11/08/14 [History] LORazepam [Ativan] 1 mg PO BID 11/08/14 [History] Ondansetron [Zofran] 4 mg SL QID PRN 11/08/14 [History] Gabapentin [Neurontin] 800 mg PO QID 04/17/15 [History] Polyethylene Glycol 3350 [Miralax] 17 gm PO DAILY 04/17/15 [History] Topiramate [Topamax] 300 mg PO Q8HR 04/17/15 [History] Lacosamide [Vimpat] 150 mg PO BID 01/08/16 [History] Lactulose [Constulose] 10 gm PO DAILY PRN 01/08/16 [History] Phenytoin Sodium Extended [Dilantin] 300 mg PO BID 12/08/16 [History] Simethicone 40 mg/0.6 ml Drops [Mylicon Drops] 40 mg PO QID #30 ml 12/30/16 [Rx] hydrOXYzine PAMOATE [Vistaril] 25 mg PO QID PRN #120 cap 01/06/17 [Rx] Docusate [Colace] 100 mg PO DAILY 02/21/17 [History] Ranitidine HCl [Zantac] 150 mg PO BID 02/21/17 [History] Calcitriol [Rocaltrol] 0.25 mcg PO WEEKLY 06/11/19 [History] Ergocalciferol [Vitamin D2] 50,000 unit PO SA 06/11/19 [History] Hyoscyamine Oral Drops [Levsin Drops] 0.25 mg PO Q4HR PRN 06/11/19 [History] Lidocaine-Prilocaine Cream [Emla Cream 2.5%/2.5%] 1 applic TOPICAL DAILY PRN 06/11/19 [History] Follow up Appointment(s)/Referral(s): Alberta Durán MD [STAFF PHYSICIAN] - 06/19/19 Patient Instructions/Handouts: Colonoscopy (DC), *Surgery [facility] - (Anesthesia) Endoscopy Discharge Instructions Activity/Diet/Wound Care/Special Instructions: Repeat colonoscopy 5 years, 2023 or Cologuard Discharge Disposition: HOME SELF-CARE
[2019-06-13 10:46] VITALS: BP 133/95; PULSE 81
[2019-06-13] MEDS ORDERED: HEPARIN SODIUM,PORCINE 100 UNIT/ML 5 ML VIAL IV ONE (11:09)
== END 2019-06-13 11:15 | disposition home or self-care (01) ==
LOC: ORWHC2ENDO 08:47
PROVIDERS: ATTEND Surgery Plastic and Reconstructive Surgery
DX: R19.4 Change in bowel habit (principal); K64.0 First degree hemorrhoids; I10 Essential (primary) hypertension; I34.1 Nonrheumatic mitral (valve) prolapse; J45.909 Unspecified asthma, uncomplicated; E07.9 Disorder of thyroid, unspecified; K21.9 Gastro-esophageal reflux disease without esophagitis; G40.909 Epilepsy, unspecified, not intractable, without status epilepticus; G43.909 Migraine, unspecified, not intractable, without status migrainosus; M19.90 Unspecified osteoarthritis, unspecified site; Z79.899 Other long term (current) drug therapy; Z88.0 Allergy status to penicillin; Z88.5 Allergy status to narcotic agent; Z88.6 Allergy status to analgesic agent; Z88.8 Allergy status to other drugs, medicaments and biological substances; Z90.49 Acquired absence of other specified parts of digestive tract; Z90.710 Acquired absence of both cervix and uterus; Z98.51 Tubal ligation status; Z87.39 Personal history of other diseases of the musculoskeletal system and connective tissue; Z80.6 Family history of leukemia; Z82.49 Family history of ischemic heart disease and other diseases of the circulatory system; Z80.9 Family history of malignant neoplasm, unspecified
CPT/HCPCS: 45378; J1642; J2405; J2704

== ENCOUNTER 2019-10-11 10:45 | Observation (INO) | payer OTHER ==
[2019-10-11] MEDS ORDERED: SODIUM CHLORIDE 0.9% 1,000 ML IV STA ×2 (11:27)
[2019-10-11] MEDS ORDERED: LABETALOL 5 MG/ML VIAL MDV IVP STA (11:28)
--- NOTE | 2019-10-11 11:31 | ED ---
Recheck HPI - General Chief Complaint: Recheck/Abnormal Lab/Rx Stated Complaint: High BP Time Seen by Provider: 10/11/19 11:17 Source: patient, RN notes reviewed, old records reviewed Mode of arrival: ambulatory Limitations: no limitations - History of Present Illness Initial Comments: Patient is a 49-year-old female, with comorbidities. She presents today with complaints of chest pain, radiation towards her back and elevatd blood pressure at doctor office today. Patient reports that she's been having these symptoms off and on for the past 2 weeks, sometimes worse with exertion and worse at night.. Patient reports that she was at her primary care doctor's office her regular checkup, about Patient was found to be extremely hypertensive. They did recently increase her blood pressure medication added Norvasc. Patient states that she has a history of asthma, GERD, hypertension, mitral valve prolapse, renal disease, seizure disorder significant thyroid disorder. Patient reports that they were scheduled to have a follow-up with cardiology at some point with Dr. Tello. Patient states that she is that a stress test many years ago and was able to completely a chemical stress test. Patient states that she also has some chronic lower abdominal pain. She reports she's had that for months. - Related Data Home Medications Medication Instructions Recorded Confirmed Albuterol Inhaler [Ventolin Hfa 1 - 2 puff INHALATION RT-QID PRN 11/08/14 10/11/19 Inhaler] LORazepam [Ativan] 0.5 mg PO BID PRN 11/08/14 10/11/19 Gabapentin [Neurontin] 400 mg PO QID 04/17/15 10/11/19 Polyethylene Glycol 3350 [Miralax] 17 gm PO DAILY 04/17/15 10/11/19 Topiramate [Topamax] 100 mg PO DAILY 04/17/15 10/11/19 Lactulose [Constulose] 10 gm PO DAILY 01/08/16 10/11/19 Calcitriol [Rocaltrol] 0.25 mcg PO FR 06/11/19 10/11/19 Hyoscyamine Oral Drops [Levsin 0.25 mg PO Q4HR PRN 06/11/19 10/11/19 Drops] Colrite 100mg 100 mg PO DAILY 10/11/19 10/11/19 Lacosamide [Vimpat] 200 mg PO BID 10/11/19 10/11/19 Ondansetron HCl [Zofran] 4 mg PO QID PRN 10/11/19 10/11/19 Ondansetron Odt [Zofran Odt] 8 mg PO Q8HR PRN 10/11/19 10/11/19 Pantoprazole Sodium [Protonix] 20 mg PO DAILY 10/11/19 10/11/19 amLODIPine [Norvasc] 5 mg PO BID 10/11/19 10/11/19 Previous Rx's Medication Instructions Recorded Simethicone 40 mg/0.6 ml Drops 40 mg PO QID #30 ml 12/30/16 [Mylicon Drops] hydrOXYzine PAMOATE [Vistaril] 25 mg PO QID PRN #120 cap 01/06/17 Allergies Allergy/AdvReac Type Severity Reaction Status Date / Time hydromorphone HCl Allergy Severe Chest Pain Verified 10/11/19 13:15 [From Dilaudid] morphine Allergy Severe Rapid Verified 10/11/19 13:15 Heart Rate Penicillins Allergy Severe Rapid Verified 10/11/19 13:15 Heart Rate prochlorperazine edisylate Allergy Severe Rapid Verified 10/11/19 13:15 [From Compazine] Heart Rate prochlorperazine maleate Allergy Severe Rapid Verified 10/11/19 13:15 [From Compazine] Heart Rate NSAIDS (Non-Steroidal Allergy HISTORY OF Verified 10/11/19 13:15 Anti-Inflamma RENAL DISEASE Review of Systems ROS Statement: Those systems with pertinent positive or pertinent negative responses have been documented in the HPI. ROS Other: All systems not noted in ROS Statement are negative. Past Medical History Past Medical History: Asthma, GERD/Reflux, Hypertension, Mitral Valve Prolapse (MVP), Osteoarthritis (OA), Renal Disease, Seizure Disorder, Syncope, Thyroid Disorder Additional Past Medical History / Comment(s): migraines and chronic nausea, DDD, 3 herniated disc, STATES HAS AURA'S DAILY, HAS MEDIPORT. LAST SEIZURE - DAILY BUT VNS IMPLANT HAS CONTROLLED THEM", NODULES ON THYROID History of Any Multi-Drug Resistant Organisms: None Reported Past Surgical History: Appendectomy, Cholecystectomy, Hysterectomy, Orthopedic Surgery, Tubal Ligation Additional Past Surgical History / Comment(s): surg. for small bowel obstruction, right internal jugular mediport placement - November 2014, HAS HAD 4 MEDIPORTS, repair fx. left foot, surg. for kidney stones LAPROSCOPIC SURGERY FOR 01/2016 lysis of adhesions, VNS IMPLANT (LEFT SIDE OF CHEST ) Past Anesthesia/Blood Transfusion Reactions: Previous Problems w/ Anesthesia, Motion Sickness, Postoperative Nausea & Vomiting (PONV) Additional Past Anesthesia/Blood Transfusion Reaction / Comment(s): pt states she has post anesthesia seizures sometimes, severe PONV Past Psychological History: Anxiety Smoking Status: Never smoker Past Alcohol Use History: None Reported Past Drug Use History: None Reported - Past Family History Mother Family Medical History: Cancer, Deep Vein Thrombosis (DVT) Additional Family Medical History / Comment(s): leukemia Father Family Medical History: Cancer General Exam - General Exam Comments Initial Comments: Alert and oriented 49-year-old female. No significant distress. Limitations: no limitations General appearance: alert, in no apparent distress Head exam: Present: atraumatic, normocephalic, normal inspection Eye exam: Present: normal appearance, PERRL, EOMI. Absent: scleral icterus, conjunctival injection, periorbital swelling ENT exam: Present: normal exam, mucous membranes moist Neck exam: Present: normal inspection. Absent: tenderness, meningismus, lym phadenopathy Respiratory exam: Present: normal lung sounds bilaterally. Absent: respiratory distress, wheezes, rales, rhonchi, stridor Cardiovascular Exam: Present: regular rate, normal rhythm, normal heart sounds. Absent: systolic murmur, diastolic murmur, rubs, gallop, clicks GI/Abdominal exam: Present: soft, normal bowel sounds. Absent: distended, tenderness, guarding, rebound, rigid Extremities exam: Present: normal inspection, full ROM, normal capillary refill, other (Normal pulses in all 4 extremity's.). Absent: tenderness, pedal edema, joint swelling, calf tenderness Back exam: Present: normal inspection Neurological exam: Present: alert, oriented X3, CN II-XII intact Psychiatric exam: Present: normal affect, normal mood Course Vital Signs 10/11/19 10/11/19 11:00 12:28 Temperature 98.3 F Pulse Rate 112 H 104 H Respiratory 20 16 Rate Blood Pressure 186/102 153/99 O2 Sat by Pulse 99 99 Oximetry Medical Decision Making - Medical Decision Making 49-year-old female presents today for concern for elevated blood pressure today while Dr. Ortiz was complaining of some sharp chest pain radiates towards her back. Patient at this time his EKG shows sinus tachycardia, no ST changes. I nitial troponin and blood work was otherwise unremarkable. Patient's blood pressure did normalize while in emergency department was not giving any antihypertensive medication. Patient states she still continues to have some discomfort in her chest. We'll give the Patient aspirin. I discussed this time for patient's last episode of hypertension and persistent chest pain to rule out ACS. Patient's case was discussed with Dr. Dey who discussed the case with Dr. Kruger. - Lab Data Result diagrams: 10/11/19 12:13 10/11/19 12:13 Lab Results 10/11/19 10/11/19 10/11/19 Range/Units 12:13 12:13 12:13 WBC 5.2 (3.8-10.6) k/uL RBC 4.69 (3.80-5.40) m/uL Hgb 14.0 (11.4-16.0) gm/dL Hct 40.7 (34.0-46.0) % MCV 86.7 (80.0-100.0) fL MCH 29.7 (25.0-35.0) pg MCHC 34.3 (31.0-37.0) g/dL RDW 12.6 (11.5-15.5) % Plt Count 249 (150-450) k/uL Neutrophils % 59 % Lymphocytes % 25 % Monocytes % 7 % Eosinophils % 5 % Basophils % 2 % Neutrophils # 3.0 (1.3-7.7) k/uL Lymphocytes # 1.3 (1.0-4.8) k/uL Monocytes # 0.4 (0-1.0) k/uL Eosinophils # 0.3 (0-0.7) k/uL Basophils # 0.1 (0-0.2) k/uL PT 9.9 (9.0-12.0) sec INR 0.9 (<1.2) APTT 24.4 (22.0-30.0) sec D-Dimer 0.20 (<0.60) mg/L FEU Sodium 138 (137-145) mmol/L Potassium 3.8 (3.5-5.1) mmol/L Chloride 108 H (98-107) mmol/L Carbon Dioxide 24 (22-30) mmol/L Anion Gap 6 mmol/L BUN 14 (7-17) mg/dL Creatinine 1.12 H (0.52-1.04) mg/dL Est GFR (CKD-EPI)AfAm 67 (>60 ml/min/1.73 sqM) Est GFR (CKD-EPI)NonAf 58 (>60 ml/min/1.73 sqM) Glucose 108 H (74-99) mg/dL Calcium 9.2 (8.4-10.2) mg/dL Magnesium 2.3 (1.6-2.3) mg/dL Total Bilirubin 0.6 (0.2-1.3) mg/dL AST 27 (14-36) U/L ALT 29 (4-34) U/L Alkaline Phosphatase 48 (38-126) U/L Troponin I (0.000-0.034) ng/mL NT-Pro-B Natriuret Pep pg/mL Total Protein 7.4 (6.3-8.2) g/dL Albumin 4.3 (3.5-5.0) g/dL Amylase 64 (30-110) U/L Lipase 311 H (23-300) U/L 10/11/19 10/11/19 Range/Units 12:13 12:13 WBC (3.8-10.6) k/uL RBC (3.80-5.40) m/uL Hgb (11.4-16.0) gm/dL Hct (34.0-46.0) % MCV (80.0-100.0) fL MCH (25.0-35.0) pg MCHC (31.0-37.0) g/dL RDW (11.5-15.5) % Plt Count (150-450) k/uL Neutrophils % % Lymphocytes % % Monocytes % % Eosinophils % % Basophils % % Neutrophils # (1.3-7.7) k/uL Lymphocytes # (1.0-4.8) k/uL Monocytes # (0-1.0) k/uL Eosinophils # (0-0.7) k/uL Basophils # (0-0.2) k/uL PT (9.0-12.0) sec INR (<1.2) APTT (22.0-30.0) sec D-Dimer (<0.60) mg/L FEU Sodium (137-145) mmol/L Potassium (3.5-5.1) mmol/L Chloride (98-107) mmol/L Carbon Dioxide (22-30) mmol/L Anion Gap mmol/L BUN (7-17) mg/dL Creatinine (0.52-1.04) mg/dL Est GFR (CKD-EPI)AfAm (>60 ml/min/1.73 sqM) Est GFR (CKD-EPI)NonAf (>60 ml/min/1.73 sqM) Glucose (74-99) mg/dL Calcium (8.4-10.2) mg/dL Magnesium (1.6-2.3) mg/dL Total Bilirubin (0.2-1.3) mg/dL AST (14-36) U/L ALT (4-34) U/L Alkaline Phosphatase (38-126) U/L Troponin I <0.012 (0.000-0.034) ng/mL NT-Pro-B Natriuret Pep 51 pg/mL Total Protein (6.3-8.2) g/dL Albumin (3.5-5.0) g/dL Amylase (30-110) U/L Lipase (23-300) U/L 10/11/19 11:32 EKG shows sinus tachycardia, otherwise normal EKG. Ventricular rate of 111 bpm. Was 164 ms. QS duration is 80 ms. QT QTc is 348/473 ms. Disposition Clinical Impression: Chest pain, Episode of hypertension Disposition: ADMITTED IP TO THIS HOSP Condition: Stable Is patient prescribed a controlled substance at d/c from ED?: No Referrals: Dc Aceves MD [Primary Care Provider] - 1-2 days Time of Disposition: 14:08
--- NOTE | 2019-10-11 12:20 | XR ---
EXAMINATION TYPE: XR chest 2V DATE OF EXAM: 10/11/2019 COMPARISON: 02/25/2017 TECHNIQUE: PA and lateral views submitted. HISTORY: Chest pain FINDINGS: The lungs are clear and there is no pneumothorax, pleural effusion, or focal pneumonia. Metallic dev ice and Mediport catheter noted. Wire or lead of the metallic device appears coiled around the neck a nd left lung apex and should be correlated clinically. Hyperinflation suggests COPD. IMPRESSION: 1. No acute process. Correlate for position of the lead which appears somewhat coiled overlying the l eft neck.
[2019-10-11 12:23] LABS: Basophils # (A) 0.1 k/uL (0-0.2); Basophils % (A) 2 %; Eosinophils # (A) 0.3 k/uL (0-0.7); Eosinophils % (A) 5 %; HCT 40.7 % (34.0-46.0); Lymphocytes # (A) 1.3 k/uL (1.0-4.8); Lymphocytes % (A) 25 %; MCH 29.7 pg (25.0-35.0); MCHC 34.3 g/dL (31.0-37.0); MCV 86.7 fL (80.0-100.0); Mean Platelet Volume 7.5; Monocytes # (A) 0.4 k/uL (0-1.0); Monocytes % (A) 7 %; Neutrophils % (A) 59 %; Platelet Count 249 k/uL (150-450); RBC 4.69 m/uL (3.80-5.40); RDW 12.6 % (11.5-15.5); WBC 5.2 k/uL (3.8-10.6)
[2019-10-11 12:31] LABS: Albumin 4.3 g/dL (3.5-5.0); Calcium 9.2 mg/dL (8.4-10.2); Magnesium 2.3 mg/dL (1.6-2.3); Potassium 3.8 mmol/L (3.5-5.1); Total Bilirubin 0.6 mg/dL (0.2-1.3); Total Protein 7.4 g/dL (6.3-8.2)
[2019-10-11 12:40] LABS: D-Dimer 0.2 mg/L FEU (<0.60); INR 0.9 (<1.2); Partial Thromboplastin Time 24.4 sec (22.0-30.0); Prothrombin Time 9.9 sec (9.0-12.0)
[2019-10-11] MEDS ORDERED: NITROGLYCERIN SL TABS 0.4 MG TAB SUBLINGUAL PRN (14:08)
[2019-10-11] MEDS ORDERED: ASPIRIN 81 MG PO STA (14:08)
[2019-10-11 18:21] VITALS: RESP 18
[2019-10-12] MEDS ORDERED: ALBUTEROL NEBULIZED 2.5 MG/3 ML INHALATION PRN (05:19)
[2019-10-12] MEDS ORDERED: ACETAMINOPHEN TAB 325 MG TAB PO ONE (05:45)
[2019-10-12 07:05] LABS: Cholesterol 203 mg/dL (<200); HDL Cholesterol 51 mg/dL (40-60); LDL Cholesterol,Calculated 137 mg/dL (0-99); Triglycerides 73 mg/dL (<150)
[2019-10-12 07:30] VITALS: TEMP 98.2
[2019-10-12] MEDS ORDERED: HYOSCYAMINE ORAL DROPS 1.875 MG/15 ML BOTTLE PO PRN (08:00)
[2019-10-12] MEDS ORDERED: ONDANSETRON ODT 8 MG TAB.RAPDIS PO PRN (08:00)
[2019-10-12] MEDS ORDERED: ASPIRIN 325 MG TAB PO SCH (09:00)
[2019-10-12] MEDS ORDERED: METOPROLOL TARTRATE 25 MG TAB PO SCH (09:00)
[2019-10-12] MEDS ORDERED: hydrOXYzine PAMOATE 25 MG CAP PO PRN (09:00)
[2019-10-12] MEDS ORDERED: TOPIRAMATE 100 MG TAB PO SCH (09:00)
[2019-10-12] MEDS ORDERED: DOCUSATE 100 MG CAP PO SCH (09:00)
[2019-10-12] MEDS ORDERED: amLODIPine 5 MG TAB PO SCH (09:00)
[2019-10-12] MEDS ORDERED: POLYETHYLENE GLYCOL 3350 17 GM POWD.PACK PO SCH (09:00)
[2019-10-12] MEDS ORDERED: PANTOPRAZOLE 40 MG TABLET PO SCH (09:00)
[2019-10-12] MEDS ORDERED: LORazepam 1 MG TAB PO PRN (09:00)
[2019-10-12] MEDS ORDERED: LACTULOSE 20 GM/30 ML CUP PO SCH (09:00)
[2019-10-12] MEDS ORDERED: LACOSAMIDE 50 MG TABLET PO SCH (09:00)
[2019-10-12] MEDS ORDERED: CALCITRIOL 0.25 MCG CAP PO SCH (09:00)
[2019-10-12] MEDS ORDERED: ONDANSETRON 4 MG TAB PO PRN (09:00)
[2019-10-12] MEDS ORDERED: ASPIRIN 81 MG PO SCH (09:00)
[2019-10-12] MEDS: GABAPENTIN 400 MG CAP PO SCH ×2 (09:34→13:12)
[2019-10-12] MEDS: SIMETHICONE 40 MG/0.6 ML DROPS 2,000 MG/30 ML BOTTLE PO SCH ×2 (09:39→13:12)
--- NOTE | 2019-10-12 10:45 | P.CRDCN ---
History of Present Illness History of present illness: HISTORY OF PRESENTING ILLNESS This is a pleasant 49-year-old female past medical history significant for seizure, hypertension, chronic kidney disease, asthma, obesity and chronic back pain. She denies prior history of coronary artery disease and does not follow in the office with a teacher of the handicapped for any reason. We have been asked to see in consultation for chest pain. She states she was sent to the hospital by her PCP for elevated blood pressure in the office. On arrival was 186/102 with heart rate of 112. She states she struggles with chronic chest pain intermittently for sometime. The pain is not associated with exertion or activity. The pain typically is in the middle of her chest with no radiation or associated symptoms. The quality and intensity of her pain has not changed recently. DIAGNOSTICS EKG reveals sinus tachycardia with heart rate 111. Chest xray negative for an acute cardiopulmonary process. Laboratory reviewed, CBC unremarkable, d-dimer 0.2, sodium 138, potassium 3.8, creatinine 1.12 with GFR 58, magnesium 2.3, cardiac enzymes negative x3, LDL 13 7, lipase 311 on admission repeat today 99. Current cardiac medications include amlodipine 5 mg BID. REVIEW OF SYSTEMS At the time of my exam: CONSTITUTIONAL: Denies fever or chills. CARDIOVASCULAR: Denies chest pain, shortness of breath, orthopnea, PND or palpitations. RESPIRATORY: Denies cough. GASTROINTESTINAL: Denies abdominal pain, diarrhea, constipation, nausea or vomiting. MUSCULOSKELETAL: Denies myalgias. NEUROLOGIC: Denies numbness, tingling or weakness. ENDOCRINE: Denies fatigue, weight change, polydipsia or polyurina. GENITOURINARY: Denies burning, hematuria or urgency with micturation. HEMATOLOGIC: Denies history of anemia or bleeding. PHYSICAL EXAMINATION Blood pressure 145/87 heart rate 77 afebrile and maintaining oxygen saturation on room air. CONSTITUTIONAL: No apparent distress. HEENT: Head is normocephalic. Pupils are equal, round. Sclerae anicteric. Mucous membranes of the mouth are moist. No JVD. No carotid bruit. CHEST EXAMINATION: Lungs are clear to auscultation. No chest wall tenderness is noted on palpation or with deep breathing. HEART EXAMINATION: Regular rate and rhythm. S1, S2 heard. No murmurs, gallops or rub. ABDOMEN: Soft, nontender. Positive bowel sounds. EXTREMITIES: 2+ peripheral pulses, no lower extremity edema and no calf tenderness. NEUROLOGIC EXAMINATION: Patient is awake, alert and oriented x3. ASSESSMENT Hypertension, uncontrolled Chest pain, atypical. An acute event has been ruled out. No change in quality or intensity of pain over the last few years. History of seizure disorder with deep nerve stimulator in place Chronic kidney disease Asthma Chronic back pain PLAN An acute coronary event has been ruled out. Chest pain has been ongoing for the last few years with no change in intensity or quality. We will work with medications to control her blood pressure and recommend outpatient stress test in 2 weeks. Obtain baseline echocardiogram and doppler study to assess cardiac structure and function. Stable for discharge from a cardiac perspective. Thank you kindly for this consultation. Nurse Practitioner note has been reviewed, I agree with a documented findings and plan of care. Patient was seen and examined. Past Medical History Past Medical History: Asthma, GERD/Reflux, Hypertension, Mitral Valve Prolapse (MVP), Osteoarthritis (OA), Renal Disease, Seizure Disorder, Syncope, Thyroid Disorder Additional Past Medical History / Comment(s): migraines and chronic nausea, DDD, 3 herniated disc, STATES HAS AURA'S DAILY, HAS MEDIPORT. LAST SEIZURE - DAILY BUT VNS IMPLANT HAS CONTROLLED THEM", NODULES ON THYROID History of Any Multi-Drug Resistant Organisms: None Reported Past Surgical History: Appendectomy, Cholecystectomy, Hysterectomy, Orthopedic Surgery, Tubal Ligation Additional Past Surgical History / Comment(s): surg. for small bowel obstruction, right internal jugular mediport placement - November 2014, HAS HAD 4 MEDIPORTS, repair fx. left foot, surg. for kidney stones LAPROSCOPIC SURGERY FOR 01/2016 lysis of adhesions, VNS IMPLANT (LEFT SIDE OF CHEST ) Past Anesthesia/Blood Transfusion Reactions: Previous Problems w/ Anesthesia, Motion Sickness, Postoperative Nausea & Vomiting (PONV) Additional Past Anesthesia/Blood Transfusion Reaction / Comment(s): pt states she has post anesthesia seizures sometimes, severe PONV Past Psychological History: Anxiety Smoking Status: Never smoker Past Alcohol Use History: None Reported Past Drug Use History: None Reported - Past Family History Mother Family Medical History: Cancer, Deep Vein Thrombosis (DVT) Additional Family Medical History / Comment(s): leukemia Father Family Medical History: Cancer Medications and Allergies Home Medications Medication Instructions Recorded Confirmed Type Albuterol Inhaler [Ventolin Hfa 1 - 2 puff INHALATION RT-QID PRN 11/08/14 10/11/19 History Inhaler] LORazepam [Ativan] 0.5 mg PO BID PRN 11/08/14 10/11/19 History Gabapentin [Neurontin] 400 mg PO QID 04/17/15 10/11/19 History Polyethylene Glycol 3350 [Miralax] 17 gm PO DAILY 04/17/15 10/11/19 History Topiramate [Topamax] 100 mg PO DAILY 04/17/15 10/11/19 History Lactulose [Constulose] 10 gm PO DAILY 01/08/16 10/11/19 History Simethicone 40 mg/0.6 ml Drops 40 mg PO QID #30 ml 12/30/16 10/11/19 Rx [Mylicon Drops] hydrOXYzine PAMOATE [Vistaril] 25 mg PO QID PRN #120 cap 01/06/17 10/11/19 Rx Calcitriol [Rocaltrol] 0.25 mcg PO FR 06/11/19 10/11/19 History Hyoscyamine Oral Drops [Levsin 0.25 mg PO Q4HR PRN 06/11/19 10/11/19 History Drops] Colrite 100mg 100 mg PO DAILY 10/11/19 10/11/19 History Lacosamide [Vimpat] 200 mg PO BID 10/11/19 10/11/19 History Ondansetron HCl [Zofran] 4 mg PO QID PRN 10/11/19 10/11/19 History Ondansetron Odt [Zofran Odt] 8 mg PO Q8HR PRN 10/11/19 10/11/19 History Pantoprazole Sodium [Protonix] 20 mg PO DAILY 10/11/19 10/11/19 History amLODIPine [Norvasc] 5 mg PO BID 10/11/19 10/11/19 History Allergies Allergy/AdvReac Type Severity Reaction Status Date / Time hydromorphone HCl Allergy Severe Chest Pain Verified 10/11/19 13:15 [From Dilaudid] morphine Allergy Severe Rapid Verified 10/11/19 13:15 Heart Rate Penicillins Allergy Severe Rapid Verified 10/11/19 13:15 Heart Rate prochlorperazine edisylate Allergy Severe Rapid Verified 10/11/19 13:15 [From Compazine] Heart Rate prochlorperazine maleate Allergy Severe Rapid Verified 10/11/19 13:15 [From Compazine] Heart Rate NSAIDS (Non-Steroidal Allergy HISTORY OF Verified 10/11/19 13:15 Anti-Inflamma RENAL DISEASE Physical Exam Vitals: Vital Signs Temp Pulse Pulse Resp BP BP Pulse Ox 10/12/19 07:29 98.2 F 77 18 145/87 97 10/12/19 04:50 97.8 F 86 18 149/90 97 10/12/19 03:41 91 18 10/12/19 00:00 97.4 F L 91 18 163/89 97 10/11/19 23:11 18 10/11/19 20:26 97.5 F L 84 147/90 96 10/11/19 19:35 18 10/11/19 18:21 98.1 F 95 18 163/102 98 10/11/19 17:43 98.2 F 90 16 164/95 99 10/11/19 12:28 104 H 16 153/99 99 10/11/19 11:00 98.3 F 112 H 20 186/102 99 Intake and Output 10/11/19 10/12/19 10/12/19 22:59 06:59 14:59 Intake Total 240 Balance 240 Intake: Oral 240 Other: # Voids 1 1 Results 10/11/19 12:13 10/11/19 12:13 Cardiac Enzymes 10/11/19 10/11/19 10/11/19 Range/Units 12:13 12:13 17:36 AST 27 (14-36) U/L Troponin I <0.012 <0.012 (0.000-0.034) ng/mL 10/12/19 Range/Units 00:30 AST (14-36) U/L Troponin I <0.012 (0.000-0.034) ng/mL Coagulation 10/11/19 Range/Units 12:13 PT 9.9 (9.0-12.0) sec APTT 24.4 (22.0-30.0) sec Lipids 10/12/19 Range/Units 05:35 Triglycerides 73 (<150) mg/dL Cholesterol 203 H (<200) mg/dL HDL Cholesterol 51 (40-60) mg/dL CBC 10/11/19 Range/Units 12:13 WBC 5.2 (3.8-10.6) k/uL RBC 4.69 (3.80-5.40) m/uL Hgb 14.0 (11.4-16.0) gm/dL Hct 40.7 (34.0-46.0) % Plt Count 249 (150-450) k/uL Comprehensive Metabolic Panel 10/11/19 Range/Units 12:13 Sodium 138 (137-145) mmol/L Potassium 3.8 (3.5-5.1) mmol/L Chloride 108 H (98-107) mmol/L Carbon Dioxide 24 (22-30) mmol/L BUN 14 (7-17) mg/dL Creatinine 1.12 H (0.52-1.04) mg/dL Glucose 108 H (74-99) mg/dL Calcium 9.2 (8.4-10.2) mg/dL AST 27 (14-36) U/L ALT 29 (4-34) U/L Alkaline Phosphatase 48 (38-126) U/L Total Protein 7.4 (6.3-8.2) g/dL Albumin 4.3 (3.5-5.0) g/dL Current Medications Generic Name Dose Route Start Last Admin Trade Name Freq PRN Reason Stop Dose Admin Albuterol Sulfate 2.5 mg 10/12/19 05:19 Ventolin Nebulized INHALATION RT-QID PRN Shortness Of Breath Amlodipine Besylate 5 mg 10/12/19 09:00 10/12/19 09:34 Norvasc PO 5 mg BID FIOR Administration Aspirin 81 mg 10/12/19 09:00 10/12/19 09:34 Aspirin PO 81 mg DAILY FIOR Administration Calcitriol 0.25 mcg 10/12/19 09:00 10/12/19 09:35 Rocaltrol PO 0.25 mcg Fr@0900 FIOR Administration Docusate Sodium 100 mg 10/12/19 09:00 10/12/19 09:35 Colace PO 100 mg DAILY FIOR Administration Gabapentin 400 mg 10/12/19 09:00 10/12/19 09:34 Neurontin PO 400 mg QID FIOR Administration Hydroxyzine Pamoate 25 mg 10/12/19 09:00 Vistaril PO QID PRN Nausea Hyoscyamine 0.25 mg 10/12/19 08:00 Levsin Drops PO Q4HR PRN Nausea Lacosamide 200 mg 10/12/19 09:00 10/12/19 09:34 Vimpat PO 200 mg BID FIOR Administration Lactulose 10 gm 10/12/19 09:00 10/12/19 09:34 Cephulac PO Not Given DAILY FIOR Lorazepam 0.5 mg 10/12/19 09:00 Ativan PO BID PRN Anxiety Metoprolol Tartrate 25 mg 10/12/19 09:00 10/12/19 09:35 Lopressor PO 25 mg BID FIOR Administration Nitroglycerin 0.4 mg 10/11/19 14:08 Nitrostat SUBLINGUAL Q5M PRN Chest Pain Ondansetron HCl 4 mg 10/12/19 09:00 10/12/19 05:54 Zofran PO 4 mg QID PRN Administration Nausea Ondansetron HCl 8 mg 10/12/19 08:00 Zofran Odt PO Q8HR PRN Nausea Pantoprazole Sodium 40 mg 10/12/19 09:00 10/12/19 09:34 Protonix PO 40 mg DAILY FIOR Administration Polyethylene Glycol 17 gm 10/12/19 09:00 10/12/19 09:34 Miralax PO Not Given DAILY FIOR Simethicone 40 mg 10/12/19 09:00 10/12/19 09:39 Mylicon Drops PO 40 mg QID FIOR Administration Topiramate 100 mg 10/12/19 09:00 10/12/19 09:37 Topamax PO 100 mg DAILY FIOR Administration Intake and Output 10/11/19 10/12/19 10/12/19 22:59 06:59 14:59 Intake Total 240 Balance 240 Intake: Oral 240 Other: # Voids 1 1 10/11/19 12:13 10/11/19 12:13
--- NOTE | 2019-10-12 11:00 | ECHOF ---
Referral Reason:cp MEASUREMENTS -------- HEIGHT: 172.7 cm WEIGHT: 92.1 kg BP: 145/87 RVIDd: 3.3 cm (< 3.3) IVSd: 1.2 cm (0.6 - 1.1) LVIDd: 3.6 cm (3.9 - 5.3) LVPWd: 1.5 cm (0.6 - 1.1) IVSs: 1.3 cm LVIDs: 2.9 cm LVPWs: 1.7 cm LAESV Index (A-L): 28.97 ml/m Ao Diam: 3.1 cm (2.0 - 3.7) AV Cusp: 2.4 cm (1.5 - 2.6) LA Diam: 3.9 cm (2.7 - 3.8) MV E Yosef: 0.85 m/s MV DecT: 231 ms MV A Yosef: 1.06 m/s MV E/A Ratio: 0.81 AR PHT: 547 ms RAP: 5.00 mmHg RVSP: 25.36 mmHg FINDINGS -------- Sinus rhythm. This was a technically adequate study. The left ventricular size is normal. There is mild concentric left ventricular hypertrophy. Overa ll left ventricular systolic function is normal with, an EF between 55 - 60 %. The diastolic fillin g pattern is normal for the age of the patient 8.09. The right ventricle is mildly enlarged. LA is midly dilated 29-33ml/m2. The right atrial size is normal. Interatrial and interventricular septum intact. The aortic valve is trileaflet and appears structurally normal. There is mild aortic regurgitation. Mild mitral regurgitation is present. Trace tricuspid regurgitation present. There is no evidence of pulmonary hypertension. The right ventricular systolic pressure, as measured by Doppler, is 25.36mmHg. Trace/mild (physiologic) pulmonic regurgitation. The aortic root size is normal. Normal inferior vena cava with normal inspiratory collapse consistent with estimated right atrial pre ssure of 5 mmHg. There is no pericardial effusion. CONCLUSIONS -------- 1. Sinus rhythm. 2. This was a technically adequate study. 3. The left ventricular size is normal. 4. There is mild concentric left ventricular hypertrophy. 5. Overall left ventricular systolic function is normal with, an EF between 55 - 60 %. 6. The diastolic filling pattern is normal for the age of the patient 8.09 7. The right ventricle is mildly enlarged. 8. LA is midly dilated 29-33ml/m2. 9. The right atrial size is normal. 10. Interatrial and interventricular septum intact. 11. The aortic valve is trileaflet and appears structurally normal. 12. There is mild aortic regurgitation. 13. Mild mitral regurgitation is present. 14. Trace tricuspid regurgitation present. 15. There is no evidence of pulmonary hypertension. 16. The right ventricular systolic pressure, as measured by Doppler, is 25.36mmHg. 17. Trace/mild (physiologic) pulmonic regurgitation. 18. The aortic root size is normal. 19. Normal inferior vena cava with normal inspiratory collapse consistent with estimated right atrial pressure of 5 mmHg. 20. There is no pericardial effusion. SHOE STAINER: Sade Rausch RDCS
[2019-10-12 11:30] VITALS: BP 155/97; PULSE 69
--- NOTE | 2019-10-12 21:43 | P.HPIM ---
History of Present Illness H&P Date: 10/12/19 Presenting complaint: Sharp chest pain History of presenting complaint: This is a pleasant 49-year-old patient of Dr. Aceves. Chronic stable medical conditions include asthma, GERD, hypertension, mitral valve prolapse, osteoarthritis, seizure disorder, herniated disc, nodules on thyroid. Patient's seizures include grand mal, absence, nocturnal seizures. Patient's had a vagal nose to get her placed since then much better controlled. Patient oftentimes get sharp chest pains going across the chest. Has had a vagal nerve stimulator adjusted. She was told that these pains about from the apparatus anymore. Patient went to her family doctor for routine checkup was found to have elevated blood pressure over 200. In context of the sharp chest pain she was getting conditions also decided to send in. Has any dizziness or lightheadedness. The pain does not radiate to the neck or arm. No perspiration. Review of systems: GEN.: None EYES: None HEENT: None NECK: None RESPIRATORY: None CARDIOVASCULAR: As above GASTROINTESTINAL: None GENITOURINARY: None MUSCULOSKELETAL: Joint pains LYMPHATICS: None HEMATOLOGICAL: None PSYCHIATRY: None NEUROLOGICAL: None. Past medical history to include: Asthma, GERD, hypertension, mitral valve prolapse, or strength redness, seizure disorder to include grand mal seizures, absence seizures, nocturnal seizures, she does use a vagal nerve stimulative, tired nodules, migraines, coronary disc, Social history: Does not smoke or drink alcohol: He did lives with her fianc. Is on disability. Physical examination: VITAL SIGNS: [id number]/99-99% room air GENERAL: BMI 30.9, sitting on bed, not in distress. EYES: Pupils equal. Conjunctiva normal. HEENT: External appearance of nose and ears normal, oral cavity grossly normal. NECK: JVD not raised; masses not palpable. HEART: First and second heart sounds are normal; no edema. LUNGS: Respiratory rate normal; clear to auscultation. ABDOMEN: Soft, nontender, liver spleen not palpable, no masses palpable. PSYCH: Alert and oriented x3; mood and affect normal NEUROLOGICAL: Cranial nerves grossly intact; no facial asymmetry, power and sensation grossly intact. LYMPHATICS: No lymph nodes palpable in the axilla and neck INVESTIGATIONS, reviewed in the clinical context: White count 5.2 hemoglobin 14 potassium 3.8 creatinine 1.12 Troponin I 3 negative LDL 137 EKG tracing personally reviewed by me-sinus tachycardia Chest x-ray film personally reviewed by me-clear lungs Assessment: -Anterior chest wall pain Sharper Image intermittent somewhat long-standing. Could be musculoskeletal. Need to rule out a cardiac cause. -Intermittent asthma -GERD -Essential hypertension -Mitral valve prolapse -Seizure disorder to include grand mal seizure, absence seizure, nocturnal seiz ure on vagal nerve stimulator -Chronic herniated disc -Obesity BMI 30.9 Plan: Home medications resumed. Cardiology was consulted. 2-D echo was ordered. Past Medical History Past Medical History: Asthma, GERD/Reflux, Hypertension, Mitral Valve Prolapse (MVP), Osteoarthritis (OA), Renal Disease, Seizure Disorder, Syncope, Thyroid Disorder Additional Past Medical History / Comment(s): migraines and chronic nausea, DDD, 3 herniated disc, STATES HAS AURA'S DAILY, HAS MEDIPORT. LAST SEIZURE - DAILY BUT VNS IMPLANT HAS CONTROLLED THEM", NODULES ON THYROID History of Any Multi-Drug Resistant Organisms: None Reported Past Surgical History: Appendectomy, Cholecystectomy, Hysterectomy, Orthopedic Surgery, Tubal Ligation Additional Past Surgical History / Comment(s): surg. for small bowel obstruction, right internal jugular mediport placement - November 2014, HAS HAD 4 MEDIPORTS, repair fx. left foot, surg. for kidney stones LAPROSCOPIC SURGERY FOR 01/2016 lysis of adhesions, VNS IMPLANT (LEFT SIDE OF CHEST ) Past Anesthesia/Blood Transfusion Reactions: Previous Problems w/ Anesthesia, Motion Sickness, Postoperative Nausea & Vomiting (PONV) Additional Past Anesthesia/Blood Transfusion Reaction / Comment(s): pt states she has post anesthesia seizures sometimes, severe PONV Past Psychological History: Anxiety Smoking Status: Never smoker Past Alcohol Use History: None Reported Past Drug Use History: None Reported - Past Family History Mother Family Medical History: Cancer, Deep Vein Thrombosis (DVT) Additional Family Medical History / Comment(s): leukemia Father Family Medical History: Cancer Medications and Allergies Home Medications Medication Instructions Recorded Confirmed Type Albuterol Inhaler [Ventolin Hfa 1 - 2 puff INHALATION RT-QID PRN 11/08/14 10/11/19 History Inhaler] LORazepam [Ativan] 0.5 mg PO BID PRN 11/08/14 10/11/19 History Gabapentin [Neurontin] 400 mg PO QID 04/17/15 10/11/19 History Polyethylene Glycol 3350 [Miralax] 17 gm PO DAILY 04/17/15 10/11/19 History Topiramate [Topamax] 100 mg PO DAILY 04/17/15 10/11/19 History Lactulose [Constulose] 10 gm PO DAILY 01/08/16 10/11/19 History Simethicone 40 mg/0.6 ml Drops 40 mg PO QID #30 ml 12/30/16 10/11/19 Rx [Mylicon Drops] Calcitriol [Rocaltrol] 0.25 mcg PO FR 06/11/19 10/11/19 History Hyoscyamine Oral Drops [Levsin 0.25 mg PO Q4HR PRN 06/11/19 10/11/19 History Drops] Colrite 100mg 100 mg PO DAILY 10/11/19 10/11/19 History Lacosamide [Vimpat] 200 mg PO BID 10/11/19 10/11/19 History Ondansetron HCl [Zofran] 4 mg PO QID PRN 10/11/19 10/11/19 History Ondansetron Odt [Zofran ODT] 8 mg PO Q8HR PRN 10/11/19 10/11/19 History Pantoprazole Sodium [Protonix] 20 mg PO DAILY 10/11/19 10/11/19 History amLODIPine [Norvasc] 5 mg PO BID 10/11/19 10/11/19 History Aspirin 81 mg PO DAILY chew 10/12/19 Rx Metoprolol Tartrate [Lopressor] 25 mg PO BID #60 tab 10/12/19 Rx Allergies Allergy/AdvReac Type Severity Reaction Status Date / Time hydromorphone HCl Allergy Severe Chest Pain Verified 10/11/19 13:15 [From Dilaudid] morphine Allergy Severe Rapid Verified 10/11/19 13:15 Heart Rate Penicillins Allergy Severe Rapid Verified 10/11/19 13:15 Heart Rate prochlorperazine edisylate Allergy Severe Rapid Verified 10/11/19 13:15 [From Compazine] Heart Rate prochlorperazine maleate Allergy Severe Rapid Verified 10/11/19 13:15 [From Compazine] Heart Rate NSAIDS (Non-Steroidal Allergy HISTORY OF Verified 10/11/19 13:15 Anti-Inflamma RENAL DISEASE Physical Exam Vitals: Vital Signs Temp Pulse Pulse Resp BP BP Pulse Ox 10/12/19 07:29 98.2 F 77 18 145/87 97 10/12/19 04:50 97.8 F 86 18 149/90 97 10/12/19 03:41 91 18 10/12/19 00:00 97.4 F L 91 18 163/89 97 10/11/19 23:11 18 10/11/19 20:26 97.5 F L 84 147/90 96 10/11/19 19:35 18 10/11/19 18:21 98.1 F 95 18 163/102 98 10/11/19 17:43 98.2 F 90 16 164/95 99 10/11/19 12:28 104 H 16 153/99 99 10/11/19 11:00 98.3 F 112 H 20 186/102 99 Intake and Output 10/11/19 10/12/19 10/12/19 22:59 06:59 14:59 Intake Total 240 Balance 240 Intake: Oral 240 Other: # Voids 1 1 Results CBC & Chem 7: 10/11/19 12:13 10/11/19 12:13 Labs: Abnormal Lab Results - Last 24 Hours (Table) 10/11/19 10/12/19 Range/Units 12:13 05:35 Chloride 108 H (98-107) mmol/L Creatinine 1.12 H (0.52-1.04) mg/dL Glucose 108 H (74-99) mg/dL Cholesterol 203 H (<200) mg/dL LDL Cholesterol, Calc 137 H (0-99) mg/dL Lipase 311 H (23-300) U/L Thrombosis Risk Factor Assmnt - Choose All That Apply Any of the Below Risk Factors Present?: Yes Each Factor Represents 1 point: Age 41-60 years, Obesity (BMI >25) Other Risk Factors: No Thrombosis Risk Factor Assessment Total Risk Factor Score: 2 Thrombosis Risk Factor Assessment Level: Low Risk
--- NOTE | 2019-10-12 21:54 | P.DS ---
Providers Date of admission: 10/11/19 14:20 Expected date of discharge: 10/12/19 Attending physician: Davis Lynn Consults: 10/11/19 14:08 Consult Physician Urgent Consulting Provider: Anson Tello Consult Reason/Comments: UA Do you want consulting provider notified?: Yes [facility]: Presenting complaint: Sharp chest pain History of presenting complaint: This is a pleasant 49-year-old patient of Dr. Aceves. Chronic stable medical conditions include asthma, GERD, hypertension, mitral valve prolapse, osteoarthritis, seizure disorder, herniated disc, nodules on thyroid. Patient's seizures include grand mal, absence, nocturnal seizures. Patient's had a vagal nose to get her placed since then much better controlled. Patient oftentimes get sharp chest pains going across the chest. Has had a vagal nerve stimulator adjusted. She was told that these pains about from the apparatus anymore. Patient went to her family doctor for routine checkup was found to have elevated blood pressure over 200. In context of the sharp chest pain she was getting conditions also decided to send in. Has any dizziness or lightheadedness. The pain does not radiate to the neck or arm. No perspiration. Patient seen by cardiology. Okay to be discharged. They will see the patient as an outpatient for further workup . Discussed with the patient. Metoprolol was added for blood pressure. Consultation: Dr. VAHID Roland from cardiology Physical examination: VITAL SIGNS: 98.2-60 min-18-155/97 GENERAL: Sitting up, comfortable EYES: Pupils equal. Conjunctiva normal. HEENT: External appearance of nose and ears normal, oral cavity grossly normal. NECK: JVD not raised; masses not palpable. HEART: First and second heart sounds are normal; no edema. LUNGS: Respiratory rate normal; clear to auscultation. ABDOMEN: Soft, nontender, liver spleen not palpable, no masses palpable. PSYCH: Alert and oriented x3; mood and affect normal INVESTIGATIONS, reviewed in the clinical context: White count 5.2 hemoglobin 14 potassium 3.8 creatinine 1.12 Troponin I 3 negative LDL 137 EKG tracing personally reviewed by me-sinus tachycardia Chest x-ray film personally reviewed by me-clear lungs 2-D echo-EF 55-60% Assessment: -Anterior chest wall pain Sharp intermittent somewhat long-standing. Could be musculoskeletal. -Intermittent asthma -GERD -Essential hypertension -Mitral valve prolapse -Seizure disorder to include grand mal seizure, absence seizure, nocturnal seizure on vagal nerve stimulator -Chronic herniated disc -Obesity BMI 30.9 Disposition: Home Patient Condition at Discharge: Stable Plan - Discharge Summary New Discharge Prescriptions: New Aspirin 81 mg PO DAILY chew Metoprolol Tartrate [Lopressor] 25 mg PO BID #60 tab Continue LORazepam [Ativan] 0.5 mg PO BID PRN PRN Reason: Anxiety Albuterol Inhaler [Ventolin Hfa Inhaler] 1 - 2 puff INHALATION RT-QID PRN PRN Reason: Shortness Of Breath Topiramate [Topamax] 100 mg PO DAILY Polyethylene Glycol 3350 [Miralax] 17 gm PO DAILY Gabapentin [Neurontin] 400 mg PO QID Lactulose [Constulose] 10 gm PO DAILY Simethicone 40 mg/0.6 ml Drops [Mylicon Drops] 40 mg PO QID #30 ml Calcitriol [Rocaltrol] 0.25 mcg PO FR Hyoscyamine Oral Drops [Levsin Drops] 0.25 mg PO Q4HR PRN PRN Reason: Nausea Colrite 100mg 100 mg PO DAILY amLODIPine [Norvasc] 5 mg PO BID Lacosamide [Vimpat] 200 mg PO BID Ondansetron HCl [Zofran] 4 mg PO QID PRN PRN Reason: Nausea Ondansetron Odt [Zofran ODT] 8 mg PO Q8HR PRN PRN Reason: Nausea Pantoprazole Sodium [Protonix] 20 mg PO DAILY Discontinued hydrOXYzine PAMOATE [Vistaril] 25 mg PO QID PRN #120 cap PRN Reason: Nausea Discharge Medication List Albuterol Inhaler [Ventolin Hfa Inhaler] 1 - 2 puff INHALATION RT-QID PRN 11/08/14 [History] LORazepam [Ativan] 0.5 mg PO BID PRN 11/08/14 [History] Gabapentin [Neurontin] 400 mg PO QID 04/17/15 [History] Polyethylene Glycol 3350 [Miralax] 17 gm PO DAILY 04/17/15 [History] Topiramate [Topamax] 100 mg PO DAILY 04/17/15 [History] Lactulose [Constulose] 10 gm PO DAILY 01/08/16 [History] Simethicone 40 mg/0.6 ml Drops [Mylicon Drops] 40 mg PO QID #30 ml 12/30/16 [Rx] Calcitriol [Rocaltrol] 0.25 mcg PO FR 06/11/19 [History] Hyoscyamine Oral Drops [Levsin Drops] 0.25 mg PO Q4HR PRN 06/11/19 [History] Colrite 100mg 100 mg PO DAILY 10/11/19 [History] Lacosamide [Vimpat] 200 mg PO BID 10/11/19 [History] Ondansetron HCl [Zofran] 4 mg PO QID PRN 10/11/19 [History] Ondansetron Odt [Zofran ODT] 8 mg PO Q8HR PRN 10/11/19 [History] Pantoprazole Sodium [Protonix] 20 mg PO DAILY 10/11/19 [History] amLODIPine [Norvasc] 5 mg PO BID 10/11/19 [History] Aspirin 81 mg PO DAILY chew 10/12/19 [Rx] Metoprolol Tartrate [Lopressor] 25 mg PO BID #60 tab 10/12/19 [Rx] Follow up Appointment(s)/Referral(s): Christopher Roland MD [STAFF PHYSICIAN] - 10/22/19 3:00 pm (Follow up with Dr. Roland at the [facility] (medical center next to [facility]) as scheduled for you ) Dc Aceves MD [Primary Care Provider] - 1-2 days Patient Instructions/Handouts: Chest Pain (GEN)
== END 2019-10-12 13:48 ==
LOC: EC 10:45 → 1SOBS 14:20
PROVIDERS: ADMIT Hospitalist; ATTEND Hospitalist
DX: R07.89 Other chest pain (principal); I10 Essential (primary) hypertension; K21.9 Gastro-esophageal reflux disease without esophagitis; J45.20 Mild intermittent asthma, uncomplicated; I12.9 Hypertensive chronic kidney disease with stage 1 through stage 4 chronic kidney disease, or unspecified chronic kidney disease; I34.1 Nonrheumatic mitral (valve) prolapse; G40.409 Other generalized epilepsy and epileptic syndromes, not intractable, without status epilepticus; E66.9 Obesity, unspecified; Z68.30 Body mass index [BMI] 30.0-30.9, adult; F41.9 Anxiety disorder, unspecified; M19.90 Unspecified osteoarthritis, unspecified site; G43.909 Migraine, unspecified, not intractable, without status migrainosus; E04.1 Nontoxic single thyroid nodule; G40.A09 Absence epileptic syndrome, not intractable, without status epilepticus; N18.9 Chronic kidney disease, unspecified; G89.29 Other chronic pain; Z96.82 Presence of neurostimulator; R55 Syncope and collapse; Z80.6 Family history of leukemia; Z83.2 Family history of diseases of the blood and blood-forming organs and certain disorders involving the immune mechanism; Z80.9 Family history of malignant neoplasm, unspecified; Z79.51 Long term (current) use of inhaled steroids; Z79.899 Other long term (current) drug therapy; Z79.82 Long term (current) use of aspirin; Z90.710 Acquired absence of both cervix and uterus; Z87.442 Personal history of urinary calculi; Z88.8 Allergy status to other drugs, medicaments and biological substances; Z88.5 Allergy status to narcotic agent; Z88.0 Allergy status to penicillin
CPT/HCPCS: 93005 ×2; 96361 ×2; 96374; 99285; 36415; 93306; 85379; 83880; 80061; 80053; 82150; 83690 ×2; 83735; 84484 ×2; 85025; 85610; 85730; 71046; G0378 ×2; J1642

== ENCOUNTER 2021-01-03 23:53 | Emergency (ER) | payer OTHER ==
[2021-01-04 00:08] VITALS: TEMP 97.9
[2021-01-04] MEDS ORDERED: diphenhydrAMINE 50 MG/ML 1 ML VIAL IVP STA (00:22)
[2021-01-04] MEDS ORDERED: SODIUM CHLORIDE 0.9% 1,000 ML IV ONE (00:22)
[2021-01-04] MEDS ORDERED: METOCLOPRAMIDE 5 MG/ML 2 ML VIAL IVP STA (00:22)
--- NOTE | 2021-01-04 01:17 | CT ---
EXAM: CT Head Without Intravenous Contrast CLINICAL HISTORY: ITS.REASON CT Reason: headache TECHNIQUE: Axial computed tomography images of the head/brain without intravenous contrast. CTDI is 49.27 mGy and DLP is 1062.4 mGy-cm. This CT exam was performed using one or more of the following dose reduction techniques: automated exposure control, adjustment of the mA and/or kV according to patient size, and/or use of iterative reconstruction technique. COMPARISON: No relevant prior studies available. FINDINGS: Brain: No acute infarct, hemorrhage, mass or edema. Ventricles: Unremarkable. No ventriculomegaly. Bones/joints: No acute osseous abnormality. Soft tissues: Unremarkable. Sinuses: Mild mucosal thickening in the paranasal sinuses. Mastoid air cells: Unremarkable as visualized. IMPRESSION: No acute infarct, hemorrhage, mass or edema.
[2021-01-04] MEDS ORDERED: methylPREDNISolone SOD SUCCI 125 MG/2 ML VIAL IV STA (01:24)
--- NOTE | 2021-01-04 03:26 | ED ---
Headache HPI - General Chief Complaint: Headache Stated Complaint: Headache Time Seen by Provider: 01/04/21 00:09 Mode of arrival: ambulatory Limitations: no limitations - History of Present Illness Initial Comments: This patient is a 50-year-old woman with history of previous migraine headaches and also of seizure disorder. She states that her neurologist is Dr. Morel. Patient started developing a headache last night which then worsened into tonight. She had tried taking some home medications without much relief. When questioned she states it is not the worst headache of life. She denies any neurologic symptoms, fevers or chills, neck pain or stiffness. MD Complaint: "migraine" -: hour(s) Onset Description: gradual Location: occipital Severity: severe Quality: aching Consistency: constant Improves With: nothing Worsens With: none Context: occurred at rest Treatments Prior to Arrival: Ibuprofen - Related Data Home Medications Medication Instructions Recorded Confirmed Albuterol Inhaler (Mhu) [Ventolin 1 - 2 puff INHALATION RT-QID PRN 11/08/1402/22 Hfa Inhaler (Mhu)] LORazepam [Ativan] 0.5 mg PO BID PRN 11/08/14 10/11/19 Gabapentin [Neurontin] 400 mg PO QID 04/17/15 10/11/19 Polyethylene Glycol 3350 [Miralax] 17 gm PO DAILY 04/17/15 10/11/19 Topiramate [Topamax] 100 mg PO DAILY 04/17/15 10/11/19 Lactulose [Constulose] 10 gm PO DAILY 01/08/16 10/11/19 Hyoscyamine Oral Drops [Levsin 0.25 mg PO Q4HR PRN 06/11/19 10/11/19 Drops] calcitrioL [Rocaltrol] 0.25 mcg PO FR 06/11/19 10/11/19 Colrite 100mg 100 mg PO DAILY 10/11/19 10/11/19 Lacosamide [Vimpat] 200 mg PO BID 10/11/19 10/11/19 Ondansetron Odt [Zofran ODT] 8 mg PO Q8HR PRN 10/11/19 10/11/19 Pantoprazole Sodium [Protonix] 20 mg PO DAILY 10/11/19 10/11/19 amLODIPine [Norvasc] 5 mg PO BID 10/11/19 10/11/19 ondansetron HCL [Zofran] 4 mg PO QID PRN 10/11/19 10/11/19 Previous Rx's Medication Instructions Recorded Simethicone 40 mg/0.6 ml Drops 40 mg PO QID #30 ml 12/30/16 [Mylicon Drops] Aspirin 81 mg PO DAILY chew 10/12/19 Metoprolol Tartrate [Lopressor] 25 mg PO BID #60 tab 10/12/19 Allergies Allergy/AdvReac Type Severity Reaction Status Date / Time hydromorphone HCl Allergy Severe Chest Pain Verified 01/04/21 00:06 [From Dilaudid] morphine Allergy Severe Rapid Verified 01/04/21 00:06 Heart Rate Penicillins Allergy Severe Rapid Verified 01/04/21 00:06 Heart Rate prochlorperazine edisylate Allergy Severe Rapid Verified 01/04/21 00:06 [From Compazine] Heart Rate prochlorperazine maleate Allergy Severe Rapid Verified 01/04/21 00:06 [From Compazine] Heart Rate NSAIDS (Non-Steroidal Allergy HISTORY OF Verified 01/04/21 00:06 Anti-Inflamma RENAL DISEASE Review of Systems ROS Statement: Those systems with pertinent positive or pertinent negative responses have been documented in the HPI. ROS Other: All systems not noted in ROS Statement are negative. Constitutional: Denies: fever, chills Eyes: Denies: eye pain, eye discharge, vision change ENT: Denies: hearing loss, congestion Respiratory: Denies: cough, dyspnea Cardiovascular: Denies: chest pain, palpitations Gastrointestinal: Reports: nausea. Denies: abdominal pain, vomiting Musculoskeletal: Denies: back pain Skin: Denies: rash Neurological: Reports: headache. Denies: weakness, numbness, paresthesias, confusion Past Medical History Past Medical History: Asthma, GERD/Reflux, Hypertension, Mitral Valve Prolapse (MVP), Osteoarthritis (OA), Renal Disease, Seizure Disorder, Syncope, Thyroid Disorder Additional Past Medical History / Comment(s): migraines and chronic nausea, DDD, 3 herniated disc, STATES HAS AURA'S DAILY, HAS MEDIPORT. LAST SEIZURE - DAILY BUT VNS IMPLANT HAS CONTROLLED THEM", NODULES ON THYROID History of Any Multi-Drug Resistant Organisms: None Reported Past Surgical History: Appendectomy, Cholecystectomy, Hysterectomy, Orthopedic Surgery, Tubal Ligation Additional Past Surgical History / Comment(s): surg. for small bowel obstruction, right internal jugular mediport placement - November 2014, HAS HAD 4 MEDIPORTS, repair fx. left foot, surg. for kidney stones LAPROSCOPIC SURGERY FOR 01/2016 lysis of adhesions, VNS IMPLANT (LEFT SIDE OF CHEST ) Past Anesthesia/Blood Transfusion Reactions: Previous Problems w/ Anesthesia, Motion Sickness, Postoperative Nausea & Vomiting (PONV) Additional Past Anesthesia/Blood Transfusion Reaction / Comment(s): pt states she has post anesthesia seizures sometimes, severe PONV Past Psychological History: Anxiety Smoking Status: Never smoker Past Alcohol Use History: None Reported Past Drug Use History: None Reported - Past Family History Mother Family Medical History: Cancer, Deep Vein Thrombosis (DVT) Additional Family Medical History / Comment(s): leukemia Father Family Medical History: Cancer General Exam Limitations: no limitations General appearance: alert, in no apparent distress Head exam: Present: atraumatic, normocephalic Eye exam: Present: normal appearance, PERRL, EOMI. Absent: scleral icterus, conjunctival injection Neck exam: Present: normal inspection, full ROM. Absent: tenderness Extremities exam: Present: normal inspection, normal capillary refill. Absent: pedal edema, calf tenderness Back exam: Present: normal inspection. Absent: vertebral tenderness Neurological exam: Present: alert, oriented X3, CN II-XII intact. Absent: motor sensory deficit Skin exam: Present: warm, dry, intact, normal color. Absent: rash Course Vital Signs 01/04/21 01/04/21 00:06 01:51 Temperature 97.9 F Pulse Rate 116 H 135 H Respiratory 18 20 Rate Blood Pressure 165/93 181/101 O2 Sat by Pulse 98 100 Oximetry Disposition Clinical Impression: Headache Disposition: HOME SELF-CARE Condition: Good Instructions (If sedation given, give patient instructions): Acute Headache (ED) Is patient prescribed a controlled substance at d/c from ED?: No Referrals: Dc Aceves MD [Primary Care Provider] - 1-2 days
[2021-01-04 04:05] VITALS: BP 164/101; PULSE 118; RESP 18
== END 2021-01-04 03:45 | disposition home or self-care (01) ==
LOC: EC 23:53
DX: G43.909 Migraine, unspecified, not intractable, without status migrainosus (principal); G40.909 Epilepsy, unspecified, not intractable, without status epilepticus; F41.9 Anxiety disorder, unspecified; I10 Essential (primary) hypertension; J45.909 Unspecified asthma, uncomplicated; M19.90 Unspecified osteoarthritis, unspecified site; E07.9 Disorder of thyroid, unspecified; Z90.49 Acquired absence of other specified parts of digestive tract; Z90.710 Acquired absence of both cervix and uterus; Z98.51 Tubal ligation status
CPT/HCPCS: 70450; 99284; 96374; 96375 ×2; 96361; J1200; J2765; J2930

== ENCOUNTER 2024-11-07 07:08 | Day surgery (SDC) | payer OTHER ==
[2024-11-02 16:25] VITALS: BMI 22.5
[~2024-11-07 07:08] MED LIST changes: +LIDOCAINE 1% (10MG/ML) FOR IV START INTRADERMA PRN; -LIDOCAINE 1% 20 ML VIAL (10MG/ML) FOR IV START INTRADERMA PRN
[2024-11-07] MEDS: IV FLUID CONTINUATION 1,000 ML IV ONE (07:30)
--- NOTE | 2024-11-07 07:37 | P.GSHP ---
History of Present Illness H&P Date: 11/07/24 CHIEF COMPLAINT: GERD and colon screen HISTORY OF PRESENT ILLNESS: The patient is a 54-year-old female who presents with gastroesophageal reflux disease and need for colon screen. Upper and lower endoscopy were offered for further evaluation and management. PAST MEDICAL HISTORY: Please see list. PAST SURGICAL HISTORY: Please see list. MEDICATIONS: Please see list. ALLERGIES: Please see list. SOCIAL HISTORY: No illicit drug use FAMILY HISTORY: No reports of Crohn disease or ulcerative colitis. REVIEW OF ORGAN SYSTEMS: CONSTITUTIONAL: No reports of fevers or chills. GI: Denies any blood in stools or constipation. PHYSICAL EXAM: VITAL SIGNS: Stable GENERAL: Well-developed pleasant in no acute distress. HEENT: No scleral icterus. Extraocular movements grossly intact. Moist buccal mucosa. NECK: Supple without lymphadenopathy. CHEST: Unlabored respirations. Equal bilateral excursions. CARDIOVASCULAR: Regular rate and rhythm. Distal 2+ pulses. ABDOMEN: Soft, nondistended. MUSCULOSKELETAL: No clubbing, cyanosis, or edema. ASSESSMENT: 1. Gastroesophageal reflux disease 2. Colon screen. PLAN: 1. Recommend proceeding with an upper and lower endoscopy Past Medical History Past Medical History: Asthma, GERD/Reflux, Hypertension, Mitral Valve Prolapse (MVP), Osteoarthritis (OA), Renal Disease, Seizure Disorder, Syncope, Thyroid Disorder Additional Past Medical History / Comment(s): migraines and chronic nausea, DDD, 3 herniated disc, STATES HAS AURA'S DAILY, HAS MEDIPORT. LAST SEIZURE - DAILY BUT VNS IMPLANT HAS CONTROLLED THEM", NODULES ON THYROID History of Any Multi-Drug Resistant Organisms: None Reported Past Surgical History: Appendectomy, Cholecystectomy, Hysterectomy, Orthopedic Surgery, Tubal Ligation Additional Past Surgical History / Comment(s): surg. for small bowel obstruction, right internal jugular mediport placement 2014, HAS HAD 4 MEDIPORTS, repair fx. left foot, surg. for kidney stones LAPROSCOPIC SURGERY FOR 01/2016 lysis of adhesions, VNS IMPLANT (LEFT SIDE OF CHEST ) Past Anesthesia/Blood Transfusion Reactions: Previous Problems w/ Anesthesia, Motion Sickness, Postoperative Nausea & Vomiting (PONV) Additional Past Anesthesia/Blood Transfusion Reaction / Comment(s): pt states she has post anesthesia seizures sometimes, severe PONV Smoking Status: Never smoker - Past Family History Mother Family Medical History: Cancer, Deep Vein Thrombosis (DVT) Additional Family Medical History / Comment(s): leukemia Father Family Medical History: Cancer Medications and Allergies Home Medications Medication Instructions Recorded Confirmed Type Albuterol Inhaler [Ventolin Hfa 1 - 2 puff INHALATION RT-QID PRN 11/08/14 11/07/24 History Inhaler] LORazepam [Ativan] 0.5 mg PO BID PRN 11/08/14 11/07/24 History Lactulose [Constulose] 10 gm PO DAILY 01/08/16 11/07/24 History Colrite 100mg 100 mg PO DAILY 10/11/19 11/07/24 History Ondansetron Odt [Zofran ODT] 8 mg PO Q8HR PRN 10/11/19 11/07/24 History Pantoprazole Sodium [Protonix] 20 mg PO DAILY 10/11/19 11/07/24 History amLODIPine [Norvasc] 5 mg PO BID 10/11/19 11/07/24 History ondansetron HCL [Zofran] 4 mg PO QID PRN 10/11/19 11/07/24 History Atogepant [Qulipta] 60 mg PO QAM 11/02/24 11/07/24 History Ndommwhxoc-Lxvi-Nlnaxcbt 1 dose PO BID PRN 11/02/24 11/07/24 History Famotidine [Pepcid] 10 mg PO QAM 11/02/24 11/07/24 History Sodium Bicarbonate Tab 650 mg PO DIRECTED 11/02/24 11/07/24 History Spironolactone [Aldactone] 75 mg PO DAILY 11/02/24 11/07/24 History Vitamin D2(Unknown Dose) 1 dose PO FR 11/02/24 11/07/24 History clonazePAM [KlonoPIN] 0.5 mg PO HS 11/02/24 11/07/24 History hydrALAZINE HCL [Apresoline] 10 mg PO TID 11/02/24 11/07/24 History hydrOXYzine pamoate [Vistaril] 25 mg PO QID 11/02/24 11/07/24 History Allergies Allergy/AdvReac Type Severity Reaction Status Date / Time hydromorphone HCl Allergy Severe Chest Pain Verified 11/07/24 07:32 [From Dilaudid] morphine Allergy Severe Rapid Verified 11/07/24 07:32 Heart Rate Penicillins Allergy Severe Rapid Verified 11/07/24 07:32 Heart Rate prochlorperazine edisylate Allergy Severe Rapid Verified 11/07/24 07:32 [From Compazine] Heart Rate prochlorperazine maleate Allergy Severe Rapid Verified 11/07/24 07:32 [From Compazine] Heart Rate NSAIDS (Non-Steroidal Allergy HISTORY OF Verified 11/07/24 07:32 Anti-Inflamma RENAL DISEASE
[2024-11-07 07:47] VITALS: TEMP 98
[2024-11-07] MEDS ORDERED: LIDOCAINE 1% INJ 10MG/ML (20 ML MDV) ONE (08:02)
[2024-11-07] MEDS ORDERED: PROPOFOL 10 MG/ML 20 ML VIAL IV ONE (08:02)
--- NOTE | 2024-11-07 08:31 | P.PCN ---
Date of Procedure: 11/07/24 Description of Procedure: PREOPERATIVE DIAGNOSIS: Dysphagia Gastroesophageal reflux disease POSTOPERATIVE DIAGNOSIS: Upper esophageal stenosis Moderate gastritis with recent bleed Gastric polyps OPERATION: Esophagogastroduodenoscopy with rigid dilator over the guidewire 54 Fr with dilation Esophagogastroduodenoscopy with cold forceps biopsies esophagus, antrum, duodenum SURGEON: Alberta Durán MD ANESTHESIA: MAC. INDICATIONS: The patient is a 54-year-old male who presents with a nausea, dysphagia and history of gastroesophageal reflux disease with abdominal pain. Benefits and risks of the procedure were described. Informed consent was obtained. DESCRIPTION: The patient was brought into the endoscopy suite and laid in the left lateral decubitus position. After a timeout was confirmed, the procedure was initiated. An Olympus gastroscope was passed into the posterior oropharynx where an upper esophageal stenosis was identified. The scope was passed down to the distal esophagus. To address the upper esophageal stenosis, rigid dilator over guidewire was selected. Next using an Barbadian rigid dilator, a guidewire was placed through the gastroscope. Next the scope was withdrawn. A 54-Eritrean rigid Barbadian dilator was passed carefully along the posterior oropharynx to 45 cm and left in place for 2-3 minutes stretch. The dilator was withdrawn including the guidewire. The scope was reentered along the posterior oropharynx with no findings of full- thickness tear of the upper esophageal sphincter. Additional findings below. Within the stomach, moderate gastritis with mild bleeding. The lower esophageal valve was evaluated with Hill grade 2 lower esophageal valve. LA grade B erosive esophagitis was identified. No full-thickness injury was encountered. The GI tract was desufflated. The patient tolerated the procedure well. FINDINGS: Upper esophageal stenosis dilated 54-Eritrean rigid dilator Squamocolumnar junction 37 cm from the incisors. Moderate gastritis with bleeding along the gastric body and fundus cold forceps biopsies obtained Duodenum with mild duodenitis LA grade B erosive esophagitis with biopsies obtained Gastric polyp Hill grade 2 lower esophageal valve. RECOMMENDATIONS: Upper endoscopy as needed
--- NOTE | 2024-11-07 08:36 | P.PCN ---
Date of Procedure: 11/07/24 Description of Procedure: PREOPERATIVE DIAGNOSIS: Personal history of colon polyps Chronic constipation POSTOPERATIVE DIAGNOSIS: Severe constipation, poor prep OPERATION: Attempted colonoscopy aborted due to poor prep SURGEON: Alberta Durán MD. ANESTHESIA: MAC. INDICATIONS: The patient is a 54-year-old female who presents for change in bowel habits. Benefits and risks were described and informed consent was obtained. DESCRIPTION OF PROCEDURE: The patient had undergone 1 week laxatives lactulose including GoLytely prep day prior. The patient had been brought into the operating room and laid in the left lateral decubitus position. After adequate intravenous sedation, the rectum was examined with 2% lidocaine jelly. External hemorrhoids were encountered. The rectal tone was within normal limits. No lesions were palpated in the rectal vault. An Olympus colonoscope was advanced into the rectum where moderate retained stool was found. Upon this finding, the procedure was discontinued. Withdrawal time was over 6 minutes. FINDINGS: Aronchick preparation quality scale 4+ (1-5) Internal hemorrhoids, grade 2 External prolapsed hemorrhoids, grade 2 Nondiagnostic colonoscopy due to poor prep RECOMMENDATIONS: Recommend adjustment of prep prior to proceeding with future colonoscopy Plan - Discharge Summary Discharge Rx Participant: No New Discharge Prescriptions: Continue LORazepam [Ativan] 0.5 mg PO BID PRN PRN Reason: Anxiety Albuterol Inhaler [Ventolin Hfa Inhaler] 1 - 2 puff INHALATION RT-QID PRN PRN Reason: Shortness Of Breath Lactulose [Constulose] 10 gm PO DAILY Colrite 100mg 100 mg PO DAILY amLODIPine [Norvasc] 5 mg PO BID ondansetron HCL [Zofran] 4 mg PO QID PRN PRN Reason: Nausea Ondansetron Odt [Zofran ODT] 8 mg PO Q8HR PRN PRN Reason: Nausea Pantoprazole Sodium [Protonix] 20 mg PO DAILY Rsmcnvhiyj-Iqfw-Czoqrcbj 1 dose PO BID PRN PRN Reason: Headache Atogepant [Qulipta] 60 mg PO QAM Spironolactone [Aldactone] 75 mg PO DAILY Sodium Bicarbonate Tab 650 mg PO DIRECTED Famotidine [Pepcid] 10 mg PO QAM clonazePAM [KlonoPIN] 0.5 mg PO HS hydrALAZINE HCL [Apresoline] 10 mg PO TID Vitamin D2(Unknown Dose) 1 dose PO FR hydrOXYzine pamoate [Vistaril] 25 mg PO QID Discharge Medication List Albuterol Inhaler [Ventolin Hfa Inhaler] 1 - 2 puff INHALATION RT-QID PRN 11/08/14 [History] LORazepam [Ativan] 0.5 mg PO BID PRN 11/08/14 [History] Lactulose [Constulose] 10 gm PO DAILY 01/08/16 [History] Colrite 100mg 100 mg PO DAILY 10/11/19 [History] Ondansetron Odt [Zofran ODT] 8 mg PO Q8HR PRN 10/11/19 [History] Pantoprazole Sodium [Protonix] 20 mg PO DAILY 10/11/19 [History] amLODIPine [Norvasc] 5 mg PO BID 10/11/19 [History] ondansetron HCL [Zofran] 4 mg PO QID PRN 10/11/19 [History] Atogepant [Qulipta] 60 mg PO QAM 11/02/24 [History] Lgtbboaqqw-Cdbn-Qrtpesip 1 dose PO BID PRN 11/02/24 [History] Famotidine [Pepcid] 10 mg PO QAM 11/02/24 [History] Sodium Bicarbonate Tab 650 mg PO DIRECTED 11/02/24 [History] Spironolactone [Aldactone] 75 mg PO DAILY 11/02/24 [History] Vitamin D2(Unknown Dose) 1 dose PO FR 11/02/24 [History] clonazePAM [KlonoPIN] 0.5 mg PO HS 11/02/24 [History] hydrALAZINE HCL [Apresoline] 10 mg PO TID 11/02/24 [History] hydrOXYzine pamoate [Vistaril] 25 mg PO QID 11/02/24 [History] Follow up Appointment(s)/Referral(s): Alberta Durán MD [STAFF PHYSICIAN] - 11/20/24 2:30 pm Patient Instructions/Handouts: Esophageal Dilation (DC), Constipation (DC) Activity/Diet/Wound Care/Special Instructions: Unable to do colonoscopy due to persistent constipation Discharge Disposition: HOME SELF-CARE
[2024-11-07 08:54] VITALS: BP 137/64; PULSE 85; RESP 16
== END 2024-11-07 09:22 | disposition home or self-care (01) ==
LOC: ORWHC2ENDO 07:08
PROVIDERS: ATTEND Surgery Plastic and Reconstructive Surgery
DX: K21.00 Gastro-esophageal reflux disease with esophagitis, without bleeding (principal); Z86.0100 Personal history of colon polyps, unspecified; K59.09 Other constipation; K31.7 Polyp of stomach and duodenum; K22.2 Esophageal obstruction; K29.50 Unspecified chronic gastritis without bleeding; G40.909 Epilepsy, unspecified, not intractable, without status epilepticus; I10 Essential (primary) hypertension; I34.1 Nonrheumatic mitral (valve) prolapse; Z88.5 Allergy status to narcotic agent; Z88.0 Allergy status to penicillin; Z88.8 Allergy status to other drugs, medicaments and biological substances; Z88.6 Allergy status to analgesic agent
CPT/HCPCS: 45378; 43239; 43248; J2003; J2704; 88305